=== PATIENT | female | born 1940 | race Caucasian/White ===

== ENCOUNTER 2016-11-27 18:03 | Inpatient (IN) | payer OTHER ==
--- NOTE | 2016-11-27 18:22 | PDOC ---
History of Present Illness - General Stated Complaint: RESPIRATORY DISTRESS Time Seen by Provider: 11/27/16 18:11 History Source: Patient, EMS, Family, [facility] Records Exam Limitations: No Limitations - History of Present Illness Initial Comments: 11/27/16 18:20 76y F from [place], GERD, esophageal ca, copd, hypthyroidism, constpiation, HL, psych d/o presents with respiratory distress. The patient has been more altered today and last night had complained of L flank pain. When EMS arrived she was noted to be tachypneic to the 60s, lungs showed slight wheezing but fairly clear otherwise, and she was started on a neb wit himprovement. EMS also noted she was hypontensive upon arrival, given 250 of NS with imrovement of bp from 60 /40s to 100s sbp. saturation was 99% on RA per EMS. The pt is uanble to provide much history - endorses mild cough, denies any pain including headache, cp, abd pain, diarrhea, dysuria. pt is normally not ambulatory. Past History - Past Medical History Allergies/Adverse Reactions: Allergies Allergy/AdvReac Type Severity Reaction Status Date / Time No Known Drug Allergies Allergy Verified 11/27/16 18:32 Home Medications: Ambulatory Orders Aspirin Coated [Ecotrin -] 81 mg PO DAILY 02/04/12 Divalproex [Depakote -] 250 mg PO TID 02/04/12 Levothyroxine [Synthroid -] 125 mcg PO DAILY 02/04/12 Calcium Carbonate/Vitamin D3 [Calcium 600-Vit D3 200 Tablet] 1 each PO BID 02/02 Docusate Sodium [Colace -] 200 mg PO HS 02/02/15 Quetiapine Fumarate [Seroquel -] 125 mg PO TID 02/02/15 Sennosides [Senna] 2 tab PO HS 02/02/15 Simvastatin [Zocor -] 20 mg PO HS 02/02/15 Budesonide/Formeterol Fumarate [SYMBICORT 160/4.5mcg -] 2 inh PO BID 08/06/15 Pantoprazole Sodium [Protonix] 40 mg PO BID #0 tablet. 08/06/15 Polyethylene Glycol 3350 [Purelax] 17 gm PO DAILY 08/06/15 Risperidone [Risperdal] 1 mg PO TID 08/06/15 Ranitidine HCl 150 mg PO HS 05/06/16 Dextromethorphan HBr/Quinidine [Nuedexta 20-10 mg Capsule] 1 each PO BID Nebivolol [Bystolic -] 2.5 mg PO DAILY #60 tab 08/14/16 Ramipril [Altace] 2.5 mg PO DAILY #30 capsule 08/14/16 Aclidinium [place] [Tudorza -] 1 puff IH BID inhaler 08/15/16 Duoneb - 1 unit NEB TID PRN #0 08/15/16 Acetaminophen [Tylenol .Regular Strength -] 650 mg PO Q6H PRN 11/27/16 Furosemide [Lasix -] 40 mg PO BID@0600,1400 11/27/16 Anemia: No Asthma: No Cancer: No Cardiac Disorders: Yes CVA: Yes (LEFT HEMIPARESIS-WEAK) COPD: Yes (HX OF PNEUMONIA) CHF: Yes Dementia: No Diabetes: No GI Disorders: Yes (RIVERO'S, ESOPHAGEAL CANCER) Disorders: No HTN: Yes Hypercholesterolemia: Yes Liver Disease: No Suicide Attempt (Hx): No Seizures: No Thyroid Disease: Yes (hypo) - Surgical History Abdominal Surgery: No Appendectomy: No Cardiac Surgery: No Cholecystectomy: No Lung Surgery: No Neurologic Surgery: No Orthopedic Surgery: No - Immunization History Immunization Up to Date: Yes - Psycho/Social/Smoking Cessation Hx Anxiety: No Suicidal Ideation: No Smoking Status: No Smoking History: Former smoker Have you smoked in the past 12 months: No Number of Cigarettes Smoked Daily: 20 (FOR 50 YEARS) If you are a former smoker, when did you quit?: 7 YEARS AGO Cigars Per Day: 0 Hx Alcohol Use: No Drug/Substance Use Hx: No Substance Use Type: None Hx Substance Use Treatment: No Review of Systems - Review of Systems Able to Perform ROS?: No (limited due to clinical s) Comments:: 11/27/16 18:46 *Physical Exam - Physical Exam Comments: 11/27/16 18:47 GENERAL: The patient is awake, alert, tacheptnic, ao x 1 HEAD: Normocephalic, atraumatic. EYES: extraocular movements intact, sclera anicteric, conjunctiva clear. ENT: Normal voice, dry mucous membranes. NECK: Normal range of motion, supple LUNGS: mild wheezing, tachpneic HEART: slightly tachcyardic, ABDOMEN: Soft, nontender, normoactive bowel sounds. No guarding, no rebound. . No CVA tenderness EXTREMITIES: Normal range of motion, no edema. No clubbing or cyanosis. No cords, erythema, or tenderness. NEUROLOGICAL: No facial assymetry, Normal speech, PSYCH: Normal mood, normal affect. SKIN: hot to touch, Dry, normal turgor, stage 1 sacral ulcer Heart Score/ECG Review - ECG Impressions Comment:: 11/28/16 00:25 Twelve-lead EKG was performed and reviewed by me. There is normal sinus rhythm with a rate of 101 left axis devaitaion LBBB appropriate discordance ED Treatment Course - LABORATORY CBC & Chemistry Diagram: 11/27/16 18:30 11/27/16 18:30 Medical Decision Making - Medical Decision Making 11/27/16 18:48 will r/o sepsis ?pna vs uti will give pt neb and start pt on bipap possible metabolic derngement awaiting cxr will give fluid resusitation for hypotension 11/27/16 19:55 The patient's labs were reviewed and noted for leukocytosis, lactic acid was also elevated to 3.0. the patient's creatinine is also elevated likely due to prerenal azotemia ua nitrite + - bsaed on prior cultre results, sensitive to ctx will continue hydration and reassess lactic acid pt was started on bipap due to her tachypnea - suspect may be secondary to anxiety will admit for further management CRITICAL CARE DOCUMENTATION: I spent ~35 minutes of Critical Care time, excluding separately billable procedures, involving high complexity decision making to assess, manipulate and support vital system function(s) to treat single or multiple vital organ system failure and/or to prevent further life threatening deterioration of the patient' s condition. 11/27/16 20:[address] colin agreed with management pt respiratory is much more comfortable will admit to noncardaic tele for mangaemen tof uti and sepsis Case discussed in detail with admitting physician including history, physical exam and ancillary studies. Admitting physician has assumed care for the patient, will follow all pending diagnostics and will complete the evaluation and treatment. *DC/Admit/Observation/Transfer Diagnosis at time of Disposition: Severe sepsis UTI (urinary tract infection) Qualifiers: Urinary tract infection type: site unspecified Hematuria presence: with hematuria Qualified Code(s): N39.0 - Urinary tract infection, site not specified - Discharge Dispostion Admit: Yes - Referrals
[2016-11-27] MEDS ORDERED: SODIUM CHLORIDE 1,000 ML IV STA (18:30)
[2016-11-27] MEDS ORDERED: ALBUTEROL SO4 2.5/IPRATROPIUM 0.5 INH SOL 3 ML VIAL.NEB. NEB ONE ×2 (18:42→18:49)
[2016-11-27 18:52] LABS: VENOUS PH 7.46 (7.31-7.41)
[2016-11-27] MEDS ORDERED: ACETAMINOPHEN 1000 MG/100 ML VIAL (NON FORMULARY) IVPB ONE (18:52)
[2016-11-27] MEDS ORDERED: ACETAMINOPHEN INJECTION 100 ML IVPB ONE (18:52)
[2016-11-27 18:53] LABS: VENOUS BLOOD GAS HCO3 25.7 meq/L (22-29)
[2016-11-27 19:02] LABS: BASOPHIL 0.2 % (0-2.0); MCH 31.9 pg (25.7-33.7); MCHC 32.3 g/dl (32.0-36.0); MEAN PLT VOLUME 7.9 fl (7.5-11.1); NEUTROPHILS 88.5 % (42.8-82.8); PLATELET COUNT 259 K/MM3 (134-434); RDW 14.2 % (11.6-15.6)
[2016-11-27 19:25] LABS: INR 1.15 (0.82-1.09); PROTHROMBIN TIME (PATIENT) 12.7 SEC (9.98-11.88)
[2016-11-27 19:27] LABS: ACTIVATED PTT 31.1 SECONDS (26.9-34.4)
[2016-11-27 19:28] LABS: URINE APPEARANCE CLOUDY; URINE BILIRUBIN NEGATIVE (NEGATIVE); URINE COLOR RED; URINE GLUCOSE (UA) NEGATIVE (NEGATIVE); URINE KETONE NEGATIVE (NEGATIVE); URINE NITRITE POSITIVE (NEGATIVE); URINE UROBILINOGEN NEGATIVE E.U./dl (0.2-1.0)
[2016-11-27 19:31] LABS: ALBUMIN 3.3 g/dl (3.4-5.0); CALCIUM 8.9 mg/dL (8.5-10.1); CREATININE 1.1 mg/dL (0.55-1.02); TOT PROT 6.6 g/dl (6.4-8.2)
[2016-11-27 19:34] LABS: URINE BLOOD 3+ (NEGATIVE); URINE LEUK ESTERASE 3+ (NEGATIVE); URINE PROTEIN 2+ (NEGATIVE)
[2016-11-27 19:35] LABS: BILIRUBIN,TOTAL 0.6 mg/dL (0.2-1.0); TROPONIN I 0.21 ng/ml (0.00-0.05)
[2016-11-27 19:36] LABS: URINE BACTERIA MODERATE /hpf (NONE SEEN); URINE RBC 53 /hpf (0-3); URINE WBC 328 /hpf (3-5)
[2016-11-27] MEDS ORDERED: CEFTRIAXONE 1 GM in DEXTROSE 5%-WATER - 50 ML IVPB ONE (19:52)
[2016-11-27] MEDS ORDERED: SODIUM CHLORIDE 1,000 ML IV ONE (19:53)
[2016-11-27] MEDS ORDERED: CEFTRIAXONE 50 ML ONE (19:54)
[2016-11-27] MEDS ORDERED: SODIUM CHLORIDE 1,000 ML IV SCH ×2 (21:00→22:42)
[2016-11-27] MEDS: SENNOSIDES 8.6MG TABLET (FP) PO SCH (22:17)
[2016-11-27] MEDS: ATORVASTATIN CA 10 MG TABLET (FP) PO SCH (22:17)
[2016-11-27] MEDS: DOCUSATE SODIUM 100 MG CAPSULE (FP) PO SCH (22:17)
[2016-11-27] MEDS: ALBUTEROL SO4 2.5/IPRATROPIUM 0.5 INH SOL 3 ML VIAL.NEB. NEB PRN (23:40)
[2016-11-28] MEDS: ACETAMINOPHEN 325 MG TABLET (FP) PO PRN ×2 (00:15→08:00)
[2016-11-28 02:53] VITALS: BMI 35.3
[2016-11-28] MEDS: LEVOTHYROXINE NA 125 MCG TABLET (FP) PO SCH (06:23)
[2016-11-28 07:03] LABS: BASOPHIL 0.3 % (0-2.0); MCH 33.5 pg (25.7-33.7); MCHC 33.4 g/dl (32.0-36.0); MEAN CELL VOLUME 100.1 fl (80-96); MEAN PLT VOLUME 8.1 fl (7.5-11.1); NEUTROPHILS 88.9 % (42.8-82.8); PLATELET COUNT 201 K/MM3 (134-434); RDW 14.6 % (11.6-15.6); WHITE BLOOD COUNT 15.2 K/mm3 (4.0-10.0)
[2016-11-28 07:43] LABS: ALBUMIN 2.8 g/dl (3.4-5.0); BILIRUBIN,TOTAL 0.5 mg/dL (0.2-1.0); CALCIUM 7.8 mg/dL (8.5-10.1); TOT PROT 5.9 g/dl (6.4-8.2)
[2016-11-28] MEDS ORDERED: NEBIVOLOL 2.5 MG TABLET (FP) PO SCH (10:00)
[2016-11-28] MEDS ORDERED: RAMIPRIL 2.5 MG CAPSULE (FP) PO SCH (10:00)
[2016-11-28] MEDS ORDERED: cefTRIAXone 1 GM/50 ML BAG (PRE-DOCKED) IVPB SCH (10:00)
[2016-11-28] MEDS ORDERED: CEFTRIAXONE 1 GM in DEXTROSE 5%-WATER - 50 ML IVPB SCH (10:00)
[2016-11-28] MEDS: ASPIRIN COATED 81 MG TABLET.EC PO SCH (10:10)
[2016-11-28] MEDS: PANTOPRAZOLE 40 MG TABLET (FP) PO SCH (10:10)
[2016-11-28] MEDS: POLYETHYLENE GLYCOL 3350 119 GM BTL PO SCH (10:10)
--- NOTE | 2016-11-28 10:25 | HP ---
Admitting History and Physical - Primary Care Physician PCP: Katherine Yates - Admission Chief Complaint: AMS History of Present Illness: -ER HISTORY History of Present Illness Initial Comments: 11/27/16 18:20 76y F from [facility] -- GERD, esophageal ca, copd, hypothyroidism, constipation , HL, psych d/o presents with respiratory distress. The patient has been more altered today and last night had complained of L flank pain. When EMS arrived she was noted to be tachypneic to the 60s, lungs showed slight wheezing but fairly clear otherwise, and she was started on a neb with improvement. EMS also noted she was hypontensive upon arrival, given 250 of NS with improvement of bp from 60/40s to 100s sbp. saturation was 99% on RA per EMS. The pt is uanble to provide much history - endorses mild cough, denies any pain including headache, cp, abd pain, diarrhea, dysuria. pt is normally not ambulatory. 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) Heme/Onc: Yes: Anemia Psych: Yes: Bipolar Musculoskeletal: Yes: Osteoarthritis Endocrine: Yes: Hypothyroidism - Advance Directives Advance Directives: Yes: Health Care Proxy, DNR - Smoking History Smoking history: Former smoker Have you smoked in the past 12 months: No Aproximately how many cigarettes per day: 20 (FOR 50 YEARS) If you are a former smoker, when did you quit?: 7 YEARS AGO - Alcohol/Substance Use Hx Alcohol Use: No - Social History ADL: Support Services History of Recent Travel: No Home Medications - Allergies Allergies/Adverse Reactions: Allergies Allergy/AdvReac Type Severity Reaction Status Date / Time No Known Drug Allergies Allergy Verified 11/27/16 18:32 - Home Medications Home Medications: Ambulatory Orders Aspirin Coated [Ecotrin -] 81 mg PO DAILY 02/04/12 Divalproex [Depakote -] 250 mg PO TID 02/04/12 Levothyroxine [Synthroid -] 125 mcg PO DAILY 02/04/12 Calcium Carbonate/Vitamin D3 [Calcium 600-Vit D3 200 Tablet] 1 each PO BID 02/02 Docusate Sodium [Colace -] 200 mg PO HS 02/02/15 Quetiapine Fumarate [Seroquel -] 125 mg PO TID 02/02/15 Sennosides [Senna] 2 tab PO HS 02/02/15 Simvastatin [Zocor -] 20 mg PO HS 02/02/15 Budesonide/Formeterol Fumarate [SYMBICORT 160/4.5mcg -] 2 inh PO BID 08/06/15 Pantoprazole Sodium [Protonix] 40 mg PO BID #0 tablet. 08/06/15 Polyethylene Glycol 3350 [Purelax] 17 gm PO DAILY 08/06/15 Risperidone [Risperdal] 1 mg PO TID 08/06/15 Ranitidine HCl 150 mg PO HS 05/06/16 Dextromethorphan HBr/Quinidine [Nuedexta 20-10 mg Capsule] 1 each PO BID Nebivolol [Bystolic -] 2.5 mg PO DAILY #60 tab 08/14/16 Ramipril [Altace] 2.5 mg PO DAILY #30 capsule 08/14/16 Aclidinium [place] [Tudorza -] 1 puff IH BID inhaler 08/15/16 Duoneb - 1 unit NEB TID PRN #0 08/15/16 Acetaminophen [Tylenol .Regular Strength -] 650 mg PO Q6H PRN 11/27/16 Furosemide [Lasix -] 40 mg PO BID@0600,1400 11/27/16 Review of Systems - Review of Systems Constitutional: denies: Chills, Fever Cardiovascular: denies: Chest Pain Respiratory: reports: Cough, SOB Physical Examination Vital Signs: Vital Signs Temperature 98.8 F 11/28/16 06:00 Pulse Rate 93 H 11/28/16 09:25 Respiratory Rate 20 11/28/16 06:00 Blood Pressure 96/43 11/28/16 06:00 O2 Sat by Pulse Oximetry (%) 95 11/28/16 09:25 Constitutional: Yes: No Distress, Calm Cardiovascular: Yes: Regular Rate and Rhythm Respiratory: Yes: Diminished Gastrointestinal: Yes: Normal Bowel Sounds, Soft. No: Distention, Tenderness Renal/: No: Bladder Distention Edema: No Psychiatric: Yes: Alert Labs: CBC, BMP 11/28/16 05:00 11/28/16 05:00 Imaging - Results Chest X-ray: Image Reviewed (left base infiltrate) EKG: Image Reviewed (sinus tachycardia, LBBB) Problem List - Problems (1) Severe sepsis Code(s): A41.9 - SEPSIS, UNSPECIFIED ORGANISM R65.20 - SEVERE SEPSIS WITHOUT SEPTIC SHOCK (2) UTI (urinary tract infection) Code(s): N39.0 - URINARY TRACT INFECTION, SITE NOT SPECIFIED Qualifiers: Urinary tract infection type: site unspecified Hematuria presence: with hematuria Qualified Code(s): N39.0 - Urinary tract infection, site not specified (3) Cardiomyopathy Code(s): I42.9 - CARDIOMYOPATHY, UNSPECIFIED (4) HLD (hyperlipidemia) Code(s): E78.5 - HYPERLIPIDEMIA, UNSPECIFIED Qualifiers: Hyperlipidemia type: pure hypercholesterolemia Qualified Code(s): E78.0 - Pure hypercholesterolemia (5) HTN (hypertension) Code(s): I10 - ESSENTIAL (PRIMARY) HYPERTENSION Qualifiers: Hypertension type: essential hypertension Qualified Code(s): I10 - Essential (primary) hypertension (6) Hypothyroidism Code(s): E03.9 - HYPOTHYROIDISM, UNSPECIFIED Qualifiers: Hypothyroidism type: unspecified Qualified Code(s): E03.9 - Hypothyroidism, unspecified (7) Pneumonia Code(s): J18.9 - PNEUMONIA, UNSPECIFIED ORGANISM Qualifiers: Pneumonia type: due to unspecified organism Laterality: left Lung location: lower lobe of lung Qualified Code(s): J18.9 - Pneumonia, unspecified organism Assessment/Plan PLAN IV antibiotics dc iv fluids Cardiology eval and ID eval blood cultures positive check influenza swab sputum cultures, urine antigens dc tarango Heparin sc for DVT prophylaxis
[2016-11-28] MEDS ORDERED: SODIUM CHLORIDE 1,000 ML IV SCH (11:24)
--- NOTE | 2016-11-28 13:10 | EKG ---
Test Reason : Blood Pressure : / mmHG Vent. Rate : 101 BPM Atrial Rate : 101 BPM P-R Int : 178 ms QRS Dur : 146 ms QT Int : 402 ms P-R-T Axes : 068 -79 072 degrees QTc Int : 521 ms SINUS TACHYCARDIA LEFT AXIS DEVIATION LEFT BUNDLE BRANCH BLOCK ABNORMAL ECG WHEN COMPARED WITH ECG OF 02-AUG-2016 21:12, VENTRICULAR ECTOPIES ARE NO LONGER SEEN Confirmed by KALI WEEMS, DA ([id number]) on 11/28/2016 1:10:14 PM Referred By: Overread By: DA BASS MD
[2016-11-28] MEDS ORDERED: QUEtiapine FUMARATE 25 MG TABLET (FP) ONE ×2 (13:27→21:42)
[2016-11-28] MEDS ORDERED: QUEtiapine FUMARATE 50 MG TABLET ONE ×2 (13:28→21:42)
[2016-11-28] MEDS ORDERED: QUEtiapine FUMARATE 25 MG TABLET (FP) PO SCH (14:00)
[2016-11-28] MEDS: ACETAMINOPHEN 1000 MG/100 ML VIAL (NON FORMULARY) IVPB PRN ×2 (14:30→21:54)
[2016-11-28] MEDS: QUETIAPINE FUMARATE 100 MG, QUETIAPINE FUMARATE 25 MG PO SCH ×2 (15:05→21:49)
[2016-11-28] MEDS ORDERED: FUROSEMIDE 40 MG/4 ML INJECTABLE VIAL IVPB ONE (15:15)
--- NOTE | 2016-11-28 15:50 | PN ---
Progress Note (short form) - Note Progress Note: ID Consult dictated Gram Negative Bacteremia/ Sepsis secondary to focus Toxic metabolic encephalopathy Possible pneumonia UTI Decompansated CHF Pending identification of blood isolate , empiric cefepime
[2016-11-28] MEDS ORDERED: CEFEPIME HCL 1 GM VIAL (RESTRICTED TO ID) IVPB SCH (16:00)
[2016-11-28] MEDS ORDERED: PT OWN MED DRAWER 7, Y5N ONE (16:13)
--- NOTE | 2016-11-28 16:30 | CONS ---
DATE OF CONSULTATION: DATE OF DICTATION: 11/28/2016 The patient is a 76-year-old female who is evaluated for sepsis. History is obtained from the chart as she cannot give a history secondary to moderate distress secondary to her respiratory status. She is a resident of a retirement facility. She was noted to become increasingly short of breath and confused. She also developed fever. She was transferred to [facility] Emergency Room, where her temperature was recorded at 102.8. She was hypotensive, tachycardic, and tachypneic. She required BiPAP treatment and was transferred to the telemetry unit. Blood cultures are now positive for gram-negative rods. The patient does not give a reliable history, however, she does report recent dysuria and urinary frequency. She denies any suprapubic or flank pain. No complaints of chest pain, cough or sputum production. Chest x-ray showed increased vascular markings with possible left-sided infiltrate. Past medical history positive for hypertension, congestive heart failure, history of urinary tract infection, pneumonia, hypothyroidism, Elliott esophagus. PAST SURGICAL HISTORY: Status post cystocele repair. No known allergies. MEDICATIONS: Symbicort, Tylenol, ceftriaxone, heparin, Depakote, Colace, Lipitor, Ecotrin, Protonix, Synthroid. SOCIAL HISTORY: Lives in a retirement facility. Former smoker. No history of alcohol abuse. SYSTEMS REVIEW: Neurologic: Positive for confusion. Cardiac: Negative for chest pain or palpitations. Respiratory: As per HPI. Gastrointestinal: Negative vomiting or diarrhea. Genitourinary: As per HPI. LABORATORY DATA White count on admission 19,000, presently 15.2, hematocrit 32.6, platelet count 201. BUN 10, creatinine 1.0. Urine analysis: 328 white cells. Blood cultures: Gram-negative rods. PHYSICAL EXAMINATION: General: She is awake. She is in moderate distress secondary to tachypnea, on BiPAP mask. Vital Signs: Temperature 102. Blood pressure 105/37. Pulse 102, regular. Respiration 22 per minute. ENT: Sclerae anicteric. BiPAP mask in place. Heart Sounds: S1, S2. Lungs: Diminished breath sounds bilaterally. Abdomen: Obese, soft. Nontender. No suprapubic or flank tenderness. Extremities: 1+ edema. IMPRESSION: 1. Gram-negative bacteremia/sepsis secondary to genitourinary focus. 2. Toxic metabolic encephalopathy. 3. Urinary tract infection. 4. Possible pneumonia. 5. Decompensated congestive heart failure. Pending identification of blood isolate. Empiric antibiotic coverage with cefepime 1 g IV piggyback every 8 hours. Continue hemodynamic and respiratory support. Prognosis is guarded. Case discussed with family members present at the time of examination. Thank you for the kind referral. YESSY JERRY M.D. [id number]
[2016-11-28] MEDS: DIVALPROEX SODIUM 250 MG TABLET E.C. (FP) PO SCH ×2 (16:33→21:54)
[2016-11-28 17:06] LABS: TROPONIN I 0.07 ng/ml (0.00-0.05)
[2016-11-28] MEDS: CEFEPIME 1 GM in DEXTROSE 5%-WATER - 100 ML IVPB SCH (18:26)
[2016-11-28] MEDS: DOCUSATE SODIUM 100 MG CAPSULE (FP) PO SCH (21:48)
[2016-11-28] MEDS: SENNOSIDES 8.6MG TABLET (FP) PO SCH (21:48)
[2016-11-28] MEDS: ATORVASTATIN CA 10 MG TABLET (FP) PO SCH (21:49)
[2016-11-28] MEDS: HEPARIN NA (PORCINE) 5,000 UNITS/ML 1ML VIAL SQ SCH (21:49)
[2016-11-28] MEDS: BUDESONIDE/FORMETEROL FUMARATE 160/4.5 mcg INHALER IH SCH (22:00)
[2016-11-28] MEDS ORDERED: HEPARIN INFUSION - 500 ML IVPB ONE (22:02)
[2016-11-29] MEDS: CEFEPIME 1 GM in DEXTROSE 5%-WATER - 100 ML IVPB SCH (03:30)
[2016-11-29] MEDS: ALBUTEROL SO4 2.5/IPRATROPIUM 0.5 INH SOL 3 ML VIAL.NEB. NEB PRN ×2 (06:05→11:18)
[2016-11-29] MEDS ORDERED: QUEtiapine FUMARATE 25 MG TABLET (FP) ONE (06:35)
[2016-11-29] MEDS ORDERED: QUEtiapine FUMARATE 50 MG TABLET ONE (06:36)
[2016-11-29] MEDS: LEVOTHYROXINE NA 125 MCG TABLET (FP) PO SCH (06:38)
[2016-11-29] MEDS: DIVALPROEX SODIUM 250 MG TABLET E.C. (FP) PO SCH ×3 (06:38→21:32)
[2016-11-29] MEDS: QUETIAPINE FUMARATE 100 MG, QUETIAPINE FUMARATE 25 MG PO SCH (06:38)
--- NOTE | 2016-11-29 10:13 | PN ---
Progress Note, Physician Chief Complaint: patient cannot provide history thus it was obtained from the chart. History of Present Illness: 76y F from [facility] -- GERD, esophageal ca,PAF, LV thrombus, GI bleed on coumadin, Chronic systolic CHF (secondary to NICM), copd, hypothyroidism, constipation, HL, psych d/o presents with respiratory distress and altered mental status. When EMS arrived she was noted to be tachypneic to the 60s, lungs showed slight wheezing but fairly clear otherwise, and she was started on a neb with improvement. EMS also noted she was hypontensive upon arrival, given 250 of NS with improvement of bp from 60/40s to 100s sbp. saturation was 99% on RA per EMS. The pt is uanble to provide much history. Cultures have grown Proteus, and so presentation is likely due to urosepsis. On Telemetry, she has been in normal sinus rhythm with PVCs. Family History: could not be obtained. Social History: Custodial resident. DNR. - Current Medication List Current Medications: Active Medications Acetaminophen (Tylenol -) 650 mg PO Q6H PRN PRN Reason: FEVER OR PAIN Last Admin: 11/28/16 08:00 Dose: 650 mg Acetaminophen (Ofirmev Injection -) 1,000 mg IVPB Q6H PRN Last Admin: 11/28/16 21:54 Dose: 1,000 mg Albuterol/Ipratropium (Duoneb -) 1 amp NEB Q6H PRN PRN Reason: SHORTNESS OF BREATH Last Admin: 11/29/16 06:05 Dose: 1 amp Aspirin (Ecotrin -) 81 mg PO DAILY [facility] Last Admin: 11/28/16 10:10 Dose: 81 mg Atorvastatin Calcium (Lipitor -) 10 mg PO [facility] Last Admin: 11/28/16 21:49 Dose: 10 mg Budesonide/Formoterol Fumarate (Symbicort 160/4.5mcg -) 2 puff IH BID [facility] Last Admin: 11/28/16 22:00 Dose: 2 puff Divalproex Sodium (Depakote -) 250 mg PO TID [facility] Last Admin: 11/29/16 06:38 Dose: 250 mg Docusate Sodium (Colace -) 200 mg PO [facility] Last Admin: 11/28/16 21:48 Dose: 200 mg Heparin Sodium (Porcine) (Heparin -) 5,000 unit SQ BID [facility] Last Admin: 11/28/16 21:49 Dose: 5,000 unit Cefepime HCl 1 gm/ Dextrose 100 mls @ 200 mls/hr IVPB Q8H-IV [facility] Last Admin: 11/29/16 03:30 Dose: 200 mls/hr Levothyroxine Sodium (Synthroid -) 125 mcg PO DAILY@0700 [facility] Last Admin: 11/29/16 06:38 Dose: 125 mcg Pantoprazole Sodium (Protonix -) 40 mg PO DAILY [facility] Last Admin: 11/28/16 10:10 Dose: 40 mg Polyethylene Glycol (Miralax (For Daily Use) -) 17 gm PO DAILY [facility] Last Admin: 11/28/16 10:10 Dose: 17 gm Quetiapine Fumarate 100 mg/ (Quetiapine Fumarate 25 mg) 125 mg PO TID [facility] Last Admin: 11/29/16 06:38 Dose: 125 mg Senna (Senna -) 2 tab PO HS [facility] Last Admin: 11/28/16 21:48 Dose: 2 tab - Objective Vital Signs: Vital Signs Temperature 99 F 11/29/16 05:39 Pulse Rate 79 11/29/16 09:56 Respiratory Rate 20 11/29/16 05:39 Blood Pressure 95/40 11/29/16 05:39 O2 Sat by Pulse Oximetry (%) 97 11/29/16 09:56 Constitutional: Yes: Other (no acute distress,) Eyes: Yes: Conjunctiva Clear Cardiovascular: Yes: Regular Rate and Rhythm Respiratory: Yes: Other (decreased breath sounds at bases b/l) Gastrointestinal: Yes: Soft (non-tender) Edema: No Neurological: Yes: Confusion Labs: CBC, BMP 11/28/16 05:00 11/28/16 05:00 INR, PTT INR 1.15 (0.82-1.09) H 11/27/16 18:30 Microbiology 11/27/16 19:05 Blood - Peripheral Venous Blood Culture - Preliminary Proteus Species 11/27/16 19:05 Blood - Peripheral Venous Blood Culture - Preliminary Proteus Species 11/27/16 18:46 Urine - Urine - Catheterized Urine Culture - Preliminary Proteus Species Laboratory Tests 11/27/16 11/27/16 11/27/16 18:30 18:30 20:30 Lactic Acid 3.000 H* 2.005 H* Creatine Kinase 186 D Troponin I 0.21 H 11/28/16 15:15 Lactic Acid Creatine Kinase 246 H D Troponin I 0.07 H - ....Imaging Chest X-ray: Report Reviewed, Image Reviewed EKG: Image Reviewed (Sinus tach, left axis, left bundle.) Assessment/Plan IMP: Urosepsis Cardiomyopathy with chronic systolic CHF (non-ischemic) PAF History of LV thrombus GI bleed on coumadin Esophageal Cancer REC: 1. Urosepsis: abx as per ID 2. PAF: Currently in NSR, was not on AC due to previous history of GI bleed on coumadin. 3. CHF: would not actively diurese while acutely infected, does not appear to be acutely volume overloaded although will monitor closely while receiving extra volume of abx and IVF.
--- NOTE | 2016-11-29 10:42 | PN ---
Progress Note, Physician Chief Complaint: on BIPAP AWAKE - Current Medication List Current Medications: Active Medications Acetaminophen (Tylenol -) 650 mg PO Q6H PRN PRN Reason: FEVER OR PAIN Last Admin: 11/28/16 08:00 Dose: 650 mg Acetaminophen (Ofirmev Injection -) 1,000 mg IVPB Q6H PRN Last Admin: 11/28/16 21:54 Dose: 1,000 mg Albuterol/Ipratropium (Duoneb -) 1 amp NEB Q6H PRN PRN Reason: SHORTNESS OF BREATH Last Admin: 11/29/16 06:05 Dose: 1 amp Aspirin (Ecotrin -) 81 mg PO DAILY [facility] Last Admin: 11/28/16 10:10 Dose: 81 mg Atorvastatin Calcium (Lipitor -) 10 mg PO HS [facility] Last Admin: 11/28/16 21:49 Dose: 10 mg Budesonide/Formoterol Fumarate (Symbicort 160/4.5mcg -) 2 puff IH BID [facility] Last Admin: 11/28/16 22:00 Dose: 2 puff Divalproex Sodium (Depakote -) 250 mg PO TID [facility] Last Admin: 11/29/16 06:38 Dose: 250 mg Docusate Sodium (Colace -) 200 mg PO HS [facility] [place] Last Admin: 11/28/16 21:48 Dose: 200 mg Heparin Sodium (Porcine) (Heparin -) 5,000 unit SQ BID [facility] Last Admin: 11/28/16 21:49 Dose: 5,000 unit Cefepime HCl 1 gm/ Dextrose 100 mls @ 200 mls/hr IVPB Q8H-IV [facility] Last Admin: 11/29/16 03:30 Dose: 200 mls/hr Levothyroxine Sodium (Synthroid -) 125 mcg PO DAILY@0700 [facility] [place] Last Admin: 11/29/16 06:38 Dose: 125 mcg Pantoprazole Sodium (Protonix -) 40 mg PO DAILY [facility] Last Admin: 11/28/16 10:10 Dose: 40 mg Polyethylene Glycol (Miralax (For Daily Use) -) 17 gm PO DAILY [facility] [place] Last Admin: 11/28/16 10:10 Dose: 17 gm Quetiapine Fumarate 100 mg/ (Quetiapine Fumarate 25 mg) 125 mg PO TID [facility] [place] Last Admin: 11/29/16 06:38 Dose: 125 mg Senna (Senna -) 2 tab PO HS [facility] Last Admin: 11/28/16 21:48 Dose: 2 tab - Objective Vital Signs: Vital Signs Temperature 99 F 11/29/16 05:39 Pulse Rate 79 11/29/16 09:56 Respiratory Rate 20 11/29/16 05:39 Blood Pressure 95/40 11/29/16 05:39 O2 Sat by Pulse Oximetry (%) 97 11/29/16 09:56 Constitutional: Yes: No Distress Cardiovascular: Yes: Regular Rate and Rhythm Respiratory: Yes: Diminished Gastrointestinal: Yes: Normal Bowel Sounds, Soft, Abdomen, Obese. No: Distention, Tenderness Edema: No Psychiatric: Yes: Alert Labs: CBC, BMP 11/28/16 05:00 11/28/16 05:00 INR, PTT INR 1.15 (0.82-1.09) H 11/27/16 18:30 Problem List - Problems (1) Severe sepsis Code(s): A41.9 - SEPSIS, UNSPECIFIED ORGANISM R65.20 - SEVERE SEPSIS WITHOUT SEPTIC SHOCK (2) UTI (urinary tract infection) Code(s): N39.0 - URINARY TRACT INFECTION, SITE NOT SPECIFIED Qualifiers: Urinary tract infection type: site unspecified Hematuria presence: with hematuria Qualified Code(s): N39.0 - Urinary tract infection, site not specified (3) Cardiomyopathy Code(s): I42.9 - CARDIOMYOPATHY, UNSPECIFIED (4) HLD (hyperlipidemia) Code(s): E78.5 - HYPERLIPIDEMIA, UNSPECIFIED Qualifiers: Hyperlipidemia type: pure hypercholesterolemia Qualified Code(s): E78.0 - Pure hypercholesterolemia (5) HTN (hypertension) Code(s): I10 - ESSENTIAL (PRIMARY) HYPERTENSION Qualifiers: Hypertension type: essential hypertension Qualified Code(s): I10 - Essential (primary) hypertension (6) Hypothyroidism Code(s): E03.9 - HYPOTHYROIDISM, UNSPECIFIED Qualifiers: Hypothyroidism type: unspecified Qualified Code(s): E03.9 - Hypothyroidism, unspecified (7) Pneumonia Code(s): J18.9 - PNEUMONIA, UNSPECIFIED ORGANISM Qualifiers: Pneumonia type: due to unspecified organism Laterality: left Lung location: lower lobe of lung Qualified Code(s): J18.9 - Pneumonia, unspecified organism Assessment/Plan PLAN IV antibiotics dc iv fluids blood cultures positive-- likely urinary source influenza swab negative sputum cultures, urine antigens pending dc tarango Heparin sc for DVT prophylaxis
[2016-11-29] MEDS: HEPARIN NA (PORCINE) 5,000 UNITS/ML 1ML VIAL SQ SCH ×2 (11:00→21:15)
[2016-11-29] MEDS: ACETAMINOPHEN 1000 MG/100 ML VIAL (NON FORMULARY) IVPB PRN (11:05)
[2016-11-29] MEDS: ASPIRIN COATED 81 MG TABLET.EC PO SCH (11:15)
[2016-11-29] MEDS: PANTOPRAZOLE 40 MG TABLET (FP) PO SCH (11:15)
[2016-11-29] MEDS: POLYETHYLENE GLYCOL 3350 119 GM BTL PO SCH (11:15)
[2016-11-29] MEDS: BUDESONIDE/FORMETEROL FUMARATE 160/4.5 mcg INHALER IH SCH ×2 (11:16→22:48)
[2016-11-29] MEDS ORDERED: DOPAMINE 400 MG/D5W - 250 ML IVPB ONE (11:50)
[2016-11-29] MEDS: DOPAMINE HCL 400,000 MCG in SODIUM CHLORIDE 240 ML IV SCH (12:00)
--- NOTE | 2016-11-29 12:41 | PN ---
Progress Note, Physician History of Present Illness: Lethargic today Slightly tachypneic No acute respiratory distress Hypotensive- dopamine started Remains febrile WBC improved Blood c/s Proteus sp. - Current Medication List Current Medications: Active Medications Acetaminophen (Tylenol -) 650 mg PO Q6H PRN PRN Reason: FEVER OR PAIN Last Admin: 11/28/16 08:00 Dose: 650 mg Acetaminophen (Ofirmev Injection -) 1,000 mg IVPB Q6H PRN Last Admin: 11/29/16 11:05 Dose: 1,000 mg Albuterol/Ipratropium (Duoneb -) 1 amp NEB Q4H PRN PRN Reason: SHORTNESS OF BREATH Last Admin: 11/29/16 11:18 Dose: 1 amp Aspirin (Ecotrin -) 81 mg PO DAILY [facility] Last Admin: 11/29/16 11:15 Dose: Not Given Atorvastatin Calcium (Lipitor -) 10 mg PO HS [facility] Last Admin: 11/28/16 21:49 Dose: 10 mg Budesonide/Formoterol Fumarate (Symbicort 160/4.5mcg -) 2 puff IH BID [facility] Last Admin: 11/29/16 11:16 Dose: Not Given Divalproex Sodium (Depakote -) 250 mg PO TID [facility] Last Admin: 11/29/16 06:38 Dose: 250 mg Docusate Sodium (Colace -) 200 mg PO HS [facility] Last Admin: 11/28/16 21:48 Dose: 200 mg Heparin Sodium (Porcine) (Heparin -) 5,000 unit SQ BID [facility] Last Admin: 11/28/16 21:49 Dose: 5,000 unit Cefepime HCl 1 gm/ Dextrose 100 mls @ 200 mls/hr IVPB Q8H-IV [facility] Last Admin: 11/29/16 03:30 Dose: 200 mls/hr Dopamine HCl 400,000 mcg/ (Sodium Chloride) 250 mls @ 10.51 mls/hr IV TITR [facility] ; 3 MCG/KG/MIN PRN Reason: Protocol Levothyroxine Sodium (Synthroid -) 125 mcg PO DAILY@0700 [facility] Last Admin: 11/29/16 06:38 Dose: 125 mcg Pantoprazole Sodium (Protonix -) 40 mg PO DAILY [facility] Last Admin: 11/29/16 11:15 Dose: Not Given Polyethylene Glycol (Miralax (For Daily Use) -) 17 gm PO DAILY [facility] Last Admin: 11/29/16 11:15 Dose: Not Given Quetiapine Fumarate 100 mg/ (Quetiapine Fumarate 25 mg) 125 mg PO TID [facility] Last Admin: 11/29/16 06:38 Dose: 125 mg Senna (Senna -) 2 tab PO HS [facility] Last Admin: 11/28/16 21:48 Dose: 2 tab - Objective Vital Signs: Vital Signs Temperature 99 F 11/29/16 05:39 Pulse Rate 79 11/29/16 09:56 Respiratory Rate 20 11/29/16 05:39 Blood Pressure 95/40 11/29/16 05:39 O2 Sat by Pulse Oximetry (%) 97 11/29/16 09:56 Constitutional: Yes: No Distress Eyes: Yes: Conjunctiva Clear Cardiovascular: Yes: Regular Rate and Rhythm, S1, S2 Respiratory: Yes: Diminished Gastrointestinal: Yes: Normal Bowel Sounds, Soft, Abdomen, Obese. No: Tenderness Edema: Yes Labs: CBC, BMP 11/28/16 05:00 11/28/16 05:00 INR, PTT INR 1.15 (0.82-1.09) H 11/27/16 18:30 Assessment/Plan Gram Negative bacteremia/ sepsis secondary to source Fever/ leukocytosis CHF, possible pneumonia Final identification and susceptibilities pending. In light of persistant fever and now hypotension, will substitute meropenem pending final c/s Renal sonogram when more stable R/O hydronephrosis
[2016-11-29 12:59] LABS: ARTERIAL BLD GAS O2 SATURATION 92.4 % (90-98.9); ARTERIAL BLOOD GAS BASE EXCESS -0.6 meq/l (-2-2); ARTERIAL BLOOD GAS HCO3 23.9 meq/L (22-26); ARTERIAL BLOOD GAS pH 7.38 (7.35-7.45)
[2016-11-29] MEDS ORDERED: MEROPENEM 500 MG VIAL (RESTRICTED TO ID) IVPB SCH (13:00)
[2016-11-29 13:01] LABS: ALLENS TEST POSITIVE; ART PUNCT SITE RIGHT RADIAL; ARTERIAL BLOOD GAS PO2 67.9 mmHg (70-100); LPM/O2% 3L; PT. ON O2? YES; TYPE OF O2 NASAL
--- NOTE | 2016-11-29 15:00 | CONSULT ---
Consult Consult Specialty:: PULMONARY/CCM Referred by:: Dr. Gonzalez Reason for Consultation:: septic shock - History of Present Illness Chief Complaint: shortness of breath History of Present Illness: 76yo female with h/o COPD, GERD, hyperlipidemia, severe LV systolic dysfunction , paroxysmal atrial fibrillation, h/o LV thrombus, hypothyroidism, [facility] resident who was transferred for respiratory distress and altered mental status. Pt poor historian, does not remember events leading up to admission. Febrile, hypotensive, urine and blood cultures growing proteus species. Started on dopamine gtt on telemetry for persistent hypotension. Currently short of breath on 50% ventimask with accessory muscle use. Daughters at bedside. 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) Psych: Yes: Bipolar Musculoskeletal: Yes: Osteoarthritis Endocrine: Yes: Hypothyroidism - Alcohol/Substance Use Hx Alcohol Use: No - Smoking History Smoking history: Former smoker Have you smoked in the past 12 months: No Aproximately how many cigarettes per day: 20 (FOR 50 YEARS) If you are a former smoker, when did you quit?: 7 YEARS AGO - Social History Usual Living Arrangement: Shelter ADL: Support Services History of Recent Travel: No Home Medications - Allergies Allergies/Adverse Reactions: Allergies Allergy/AdvReac Type Severity Reaction Status Date / Time No Known Drug Allergies Allergy Verified 11/27/16 18:32 - Home Medications Home Medications: Ambulatory Orders Aspirin Coated [Ecotrin -] 81 mg PO DAILY 02/04/12 Divalproex [Depakote -] 250 mg PO TID 02/04/12 Levothyroxine [Synthroid -] 125 mcg PO DAILY 02/04/12 Calcium Carbonate/Vitamin D3 [Calcium 600-Vit D3 200 Tablet] 1 each PO BID 02/02 Docusate Sodium [Colace -] 200 mg PO HS 02/02/15 Quetiapine Fumarate [Seroquel -] 125 mg PO TID 02/02/15 Sennosides [Senna] 2 tab PO HS 02/02/15 Simvastatin [Zocor -] 20 mg PO HS 02/02/15 Budesonide/Formeterol Fumarate [SYMBICORT 160/4.5mcg -] 2 inh PO BID 08/06/15 Pantoprazole Sodium [Protonix] 40 mg PO BID #0 tablet. 08/06/15 Polyethylene Glycol 3350 [Purelax] 17 gm PO DAILY 08/06/15 Risperidone [Risperdal] 1 mg PO TID 08/06/15 Ranitidine HCl 150 mg PO HS 05/06/16 Dextromethorphan HBr/Quinidine [Nuedexta 20-10 mg Capsule] 1 each PO BID Nebivolol [Bystolic -] 2.5 mg PO DAILY #60 tab 08/14/16 Ramipril [Altace] 2.5 mg PO DAILY #30 capsule 08/14/16 Aclidinium Hermann [Tudorza -] 1 puff IH BID inhaler 08/15/16 Duoneb - 1 unit NEB TID PRN #0 08/15/16 Acetaminophen [Tylenol .Regular Strength -] 650 mg PO Q6H PRN 11/27/16 Furosemide [Lasix -] 40 mg PO BID@0600,1400 11/27/16 Family Disease History - Family Disease History Other Family History: non-contributory Review of Systems - Review of Systems Constitutional: reports: Chills, Fever, Weakness Eyes: denies: Recent Change in Vision HENT: denies: Nasal Congestion, Throat Pain Neck: denies: Stiffness, Tenderness Cardiovascular: reports: Shortness of Breath. denies: Chest Pain, Edema, Palpitations Respiratory: reports: Cough. denies: Hemoptysis, Wheezing Gastrointestinal: denies: Abdominal Pain, Nausea, Vomiting Genitourinary: denies: Dysuria, Hematuria Neurological: denies: Dizziness, Headache Physical Exam Vital Sings: Vital Signs Temperature 99 F 11/29/16 05:39 Pulse Rate 95 H 11/29/16 14:53 Respiratory Rate 20 11/29/16 05:39 Blood Pressure 95/40 11/29/16 05:39 O2 Sat by Pulse Oximetry (%) 96 11/29/16 14:53 Constitutional: Yes: Moderate Distress Eyes: Yes: Conjunctiva Clear, EOM Intact HENT: Yes: Atraumatic, Normocephalic Neck: Yes: Supple, Trachea Midline Cardiovascular: Yes: Tachycardia Respiratory: Yes: Rhonchi (bilateral) ...Clubbing: No Gastrointestinal: Yes: Normal Bowel Sounds, Soft, Abdomen, Obese. No: Tenderness Edema: No Labs: CBC, BMP 11/28/16 05:00 11/28/16 05:00 ABG Results ABG pH 7.38 (7.35-7.45) 11/29/16 12:45 ABG pCO2 at Pt Temp 41.0 mmHg (35-45) 11/29/16 12:45 ABG pO2 at Pt Temp 67.9 mmHg (70-100) L 11/29/16 12:45 ABG HCO3 23.9 meq/L (22-26) 11/29/16 12:45 ABG O2 Sat (Measured) 92.4 % (90-98.9) 11/29/16 12:45 ABG O2 Content 13.0 % vol (15-22) L 11/29/16 12:45 ABG Base Excess -0.6 meq/l (-2-2) 11/29/16 12:45 Imaging - Results Chest X-ray: Report Reviewed, Image Reviewed (increasing pulmonary vascular congestion) Problem List - Problems (1) UTI (urinary tract infection) Code(s): N39.0 - URINARY TRACT INFECTION, SITE NOT SPECIFIED Qualifiers: Urinary tract infection type: site unspecified Hematuria presence: with hematuria Qualified Code(s): N39.0 - Urinary tract infection, site not specified (2) Bacteremia Code(s): R78.81 - BACTEREMIA (3) Septic shock Code(s): A41.9 - SEPSIS, UNSPECIFIED ORGANISM R65.21 - SEVERE SEPSIS WITH SEPTIC SHOCK (4) Acute on chronic systolic CHF (congestive heart failure), NYHA class 4 Code(s): I50.23 - ACUTE ON CHRONIC SYSTOLIC (CONGESTIVE) HEART FAILURE (5) HLD (hyperlipidemia) Code(s): E78.5 - HYPERLIPIDEMIA, UNSPECIFIED Qualifiers: Hyperlipidemia type: pure hypercholesterolemia Qualified Code(s): E78.0 - Pure hypercholesterolemia (6) HTN (hypertension) Code(s): I10 - ESSENTIAL (PRIMARY) HYPERTENSION Qualifiers: Hypertension type: essential hypertension Qualified Code(s): I10 - Essential (primary) hypertension (7) Hypothyroidism Code(s): E03.9 - HYPOTHYROIDISM, UNSPECIFIED Qualifiers: Hypothyroidism type: unspecified Qualified Code(s): E03.9 - Hypothyroidism, unspecified (8) Paroxysmal atrial fibrillation Code(s): I48.0 - PAROXYSMAL ATRIAL FIBRILLATION (9) Lactic acidosis Code(s): E87.2 - ACIDOSIS (10) Elevated troponin Code(s): R79.89 - OTHER SPECIFIED ABNORMAL FINDINGS OF BLOOD CHEMISTRY Assessment/Plan Proteus UTI/Bacteremia Septic Shock Lactic Acidosis Acute on Chronic LV Systolic Heart Failure Impending Acute Hypoxic Respiratory Failure COPD Paroxysmal Atrial Fibrillation h/o LV thrombus - IV antibiotics per ID - f/u proteus sensitivities - trend lactate - titrate dopamine gtt to maintain MAP >65 - O2 to keep SpO2 >90% - BiPAP to assist in work of breathing - inhaled bronchodilators - aspiration precautions - discussed with pt and daughters at bedside at length regarding central line placement and pressor support, trial of intubation while treating her infection , comfort care - discussed with them difficulty placing central access if she is unable to lie flat - pt became visibly frustrated and overwhelmed, unable to make decision at this time, advised continued discussions regarding goals of care - transfer to ICU for closer monitoring until goals of care established Thank you for this consult Quintin Aguiar MD
[2016-11-29] MEDS: MEROPENEM 500 MG in DEXTROSE 5%-WATER - 100 ML IVPB SCH (18:14)
[2016-11-29] MEDS ORDERED: PT OWN MED DRAWER 7, Y5N ONE ×2 (20:54→22:36)
[2016-11-29] MEDS: SENNOSIDES 8.6MG TABLET (FP) PO SCH (20:59)
[2016-11-29] MEDS: DOCUSATE SODIUM 100 MG CAPSULE (FP) PO SCH (21:14)
[2016-11-29] MEDS: ATORVASTATIN CA 10 MG TABLET (FP) PO SCH (21:14)
[2016-11-30] MEDS: MEROPENEM 500 MG in DEXTROSE 5%-WATER - 100 ML IVPB SCH (02:00)
[2016-11-30] MEDS ORDERED: DOPAMINE 400 MG/D5W - 250 ML IVPB ONE ×2 (03:17→14:14)
[2016-11-30] MEDS: LEVOTHYROXINE NA 125 MCG TABLET (FP) PO SCH (06:13)
[2016-11-30] MEDS: DIVALPROEX SODIUM 250 MG TABLET E.C. (FP) PO SCH ×3 (06:13→21:22)
--- NOTE | 2016-11-30 07:52 | PN ---
Progress Note, Physician Chief Complaint: ID Meropenem day 1 Tachypneic off the ventilation mask but feels better and denies SOB Dopamine 5ug Fevers trending down Alert and oriented - Current Medication List Current Medications: Active Medications Acetaminophen (Tylenol -) 650 mg PO Q6H PRN PRN Reason: FEVER OR PAIN Last Admin: 11/28/16 08:00 Dose: 650 mg Acetaminophen (Ofirmev Injection -) 1,000 mg IVPB Q6H PRN Last Admin: 11/29/16 11:05 Dose: 1,000 mg Albuterol/Ipratropium (Duoneb -) 1 amp NEB Q4H PRN PRN Reason: SHORTNESS OF BREATH Last Admin: 11/29/16 11:18 Dose: 1 amp Aspirin (Ecotrin -) 81 mg PO DAILY [facility] Last Admin: 11/29/16 11:15 Dose: Not Given Atorvastatin Calcium (Lipitor -) 10 mg PO HS [facility] Last Admin: 11/29/16 21:14 Dose: 10 mg Budesonide/Formoterol Fumarate (Symbicort 160/4.5mcg -) 2 puff IH BID [facility] Last Admin: 11/29/16 22:48 Dose: 2 puff Divalproex Sodium (Depakote -) 250 mg PO TID [facility] Last Admin: 11/30/16 06:13 Dose: 250 mg Docusate Sodium (Colace -) 200 mg PO HS [facility] Last Admin: 11/29/16 21:14 Dose: 200 mg Heparin Sodium (Porcine) (Heparin -) 5,000 unit SQ BID [facility] Last Admin: 11/29/16 21:15 Dose: 5,000 unit Dopamine HCl 400,000 mcg/ (Sodium Chloride) 250 mls @ 10.51 mls/hr IV TITR [facility] ; 3 MCG/KG/MIN PRN Reason: Protocol Last Titration: 11/29/16 12:30 Dose: 5 mcg/kg/min Meropenem 500 mg/ Dextrose 100 mls @ 400 mls/hr IVPB Q8H-IV [facility] Last Admin: 11/30/16 02:00 Dose: 400 mls/hr Levothyroxine Sodium (Synthroid -) 125 mcg PO DAILY@0700 [facility] Last Admin: 11/30/16 06:13 Dose: 125 mcg Pantoprazole Sodium (Protonix -) 40 mg PO DAILY [facility] Last Admin: 11/29/16 11:15 Dose: Not Given Polyethylene Glycol (Miralax (For Daily Use) -) 17 gm PO DAILY [facility] Last Admin: 11/29/16 11:15 Dose: Not Given Senna (Senna -) 2 tab PO HS [facility] Last Admin: 11/29/16 20:59 Dose: 2 tab - Objective Vital Signs: Vital Signs Temperature 100.2 F H 11/30/16 06:00 Pulse Rate 92 H 11/30/16 06:00 Respiratory Rate 25 H 11/30/16 06:00 Blood Pressure 109/72 11/30/16 06:00 O2 Sat by Pulse Oximetry (%) 98 11/30/16 00:58 Constitutional: Yes: Well Nourished, Moderate Distress HENT: Yes: WNL, Atraumatic, Normocephalic Neck: Yes: WNL, Supple Cardiovascular: Yes: Regular Rate and Rhythm, S1, S2. No: Murmur Respiratory: Yes: WNL, Regular, CTA Bilaterally. No: Rales, Rhonchi Gastrointestinal: Yes: WNL, Normal Bowel Sounds. No: Tenderness, Tenderness, Epigastrium, Tenderness, Rebound Extremities: No: Cool, Cyanosis Edema: No Labs: CBC, BMP 11/28/16 05:00 11/28/16 05:00 INR, PTT INR 1.15 (0.82-1.09) H 11/27/16 18:30 Assessment/Plan Microbiology 11/27/16 19:05 Blood - Peripheral Venous Blood Culture - Preliminary Proteus Species 11/27/16 18:46 Urine - Urine - Catheterized Urine Culture - Preliminary Proteus Species Laboratory Tests 11/27/16 11/27/16 11/27/16 18:30 18:30 18:46 WBC 19.0 H D MCV Plt Count BUN Creatinine Creat Clearance w eGFR Lactic Acid 3.000 H* Ur Leukocyte Esterase 3+ H D Urine RBC 53 Urine WBC 328 11/27/16 11/28/16 11/28/16 20:30 05:00 05:00 WBC 15.2 H MCV 100.1 H Plt Count 201 D BUN 18 Creatinine 1.0 Creat Clearance w eGFR 53.76 Lactic Acid 2.005 H* Ur Leukocyte Esterase Urine RBC Urine WBC Assessment Proteus bacteremia with UTI Sepsis syndrome Congestive heart failure Atrial arrhythmias Plan Once sensitivities available switch ? Cefazolin Ampicillin Ceftriaxone Given Proteus in urine get renal sonogram looking for stones Tia WEEMS Addendum Organism sensitive to Ampicillin !!!! Will switch 40 minutes spent with patient in ICU care Tia WEEMS
--- NOTE | 2016-11-30 09:02 | PN ---
Progress Note, Physician Chief Complaint: Pt in ICU Awake today no complaints No chest pain No SOB, though appears tachypneic - Current Medication List Current Medications: Active Medications Acetaminophen (Tylenol -) 650 mg PO Q6H PRN PRN Reason: FEVER OR PAIN Last Admin: 11/28/16 08:00 Dose: 650 mg Acetaminophen (Ofirmev Injection -) 1,000 mg IVPB Q6H PRN Last Admin: 11/29/16 11:05 Dose: 1,000 mg Albuterol/Ipratropium (Duoneb -) 1 amp NEB Q4H PRN PRN Reason: SHORTNESS OF BREATH Last Admin: 11/29/16 11:18 Dose: 1 amp Aspirin (Ecotrin -) 81 mg PO DAILY [facility] Last Admin: 11/29/16 11:15 Dose: Not Given Atorvastatin Calcium (Lipitor -) 10 mg PO HS [facility] Last Admin: 11/29/16 21:14 Dose: 10 mg Budesonide/Formoterol Fumarate (Symbicort 160/4.5mcg -) 2 puff IH BID [facility] Last Admin: 11/29/16 22:48 Dose: 2 puff Divalproex Sodium (Depakote -) 250 mg PO TID [facility] Last Admin: 11/30/16 06:13 Dose: 250 mg Docusate Sodium (Colace -) 200 mg PO HS [facility] Last Admin: 11/29/16 21:14 Dose: 200 mg Heparin Sodium (Porcine) (Heparin -) 5,000 unit SQ BID [facility] Last Admin: 11/29/16 21:15 Dose: 5,000 unit Dopamine HCl 400,000 mcg/ (Sodium Chloride) 250 mls @ 10.51 mls/hr IV TITR [facility] ; 3 MCG/KG/MIN PRN Reason: Protocol Last Titration: 11/29/16 12:30 Dose: 5 mcg/kg/min Ampicillin Sodium 2 gm/ Sodium (Chloride) 100 mls @ 200 mls/hr IVPB Q6H-IV [facility] Levothyroxine Sodium (Synthroid -) 125 mcg PO DAILY@0700 [facility] Last Admin: 11/30/16 06:13 Dose: 125 mcg Pantoprazole Sodium (Protonix -) 40 mg PO DAILY [facility] Last Admin: 11/29/16 11:15 Dose: Not Given Polyethylene Glycol (Miralax (For Daily Use) -) 17 gm PO DAILY [facility] Last Admin: 11/29/16 11:15 Dose: Not Given Senna (Senna -) 2 tab PO HS [facility] Last Admin: 11/29/16 20:59 Dose: 2 tab - Objective Vital Signs: Vital Signs Temperature 99.6 F 11/30/16 07:54 Pulse Rate 88 11/30/16 07:54 Respiratory Rate 20 11/30/16 07:54 Blood Pressure 108/75 11/30/16 07:54 O2 Sat by Pulse Oximetry (%) 98 11/30/16 00:58 Constitutional: Yes: No Distress Cardiovascular: Yes: Regular Rate and Rhythm Respiratory: Yes: Diminished, Rales Gastrointestinal: Yes: Normal Bowel Sounds, Soft, Abdomen, Obese. No: Distention, Tenderness Edema: No Labs: CBC, BMP 11/28/16 05:00 11/28/16 05:00 INR, PTT INR 1.15 (0.82-1.09) H 11/27/16 18:30 Problem List - Problems (1) Severe sepsis Code(s): A41.9 - SEPSIS, UNSPECIFIED ORGANISM R65.20 - SEVERE SEPSIS WITHOUT SEPTIC SHOCK (2) UTI (urinary tract infection) Code(s): N39.0 - URINARY TRACT INFECTION, SITE NOT SPECIFIED Qualifiers: Urinary tract infection type: site unspecified Hematuria presence: with hematuria Qualified Code(s): N39.0 - Urinary tract infection, site not specified (3) Cardiomyopathy Code(s): I42.9 - CARDIOMYOPATHY, UNSPECIFIED (4) HLD (hyperlipidemia) Code(s): E78.5 - HYPERLIPIDEMIA, UNSPECIFIED Qualifiers: Hyperlipidemia type: pure hypercholesterolemia Qualified Code(s): E78.0 - Pure hypercholesterolemia (5) HTN (hypertension) Code(s): I10 - ESSENTIAL (PRIMARY) HYPERTENSION Qualifiers: Hypertension type: essential hypertension Qualified Code(s): I10 - Essential (primary) hypertension (6) Hypothyroidism Code(s): E03.9 - HYPOTHYROIDISM, UNSPECIFIED Qualifiers: Hypothyroidism type: unspecified Qualified Code(s): E03.9 - Hypothyroidism, unspecified (7) Pneumonia Code(s): J18.9 - PNEUMONIA, UNSPECIFIED ORGANISM Qualifiers: Pneumonia type: due to unspecified organism Laterality: left Lung location: lower lobe of lung Qualified Code(s): J18.9 - Pneumonia, unspecified organism Assessment/Plan PLAN IV antibiotics dc iv fluids ID follow up noted check sono kidneys currently on Dopamine drip Heparin sc for DVT prophylaxis
[2016-11-30 09:10] LABS: BASOPHIL 0.4 % (0-2.0); EOSINOPHIL 1.6 % (0-4.5); MCH 33.6 pg (25.7-33.7); MCHC 33.6 g/dl (32.0-36.0); MEAN CELL VOLUME 100.2 fl (80-96); MEAN PLT VOLUME 7.3 fl (7.5-11.1); NEUTROPHILS 79.1 % (42.8-82.8); PLATELET COUNT 189 K/MM3 (134-434); RDW 14.4 % (11.6-15.6); WHITE BLOOD COUNT 7.5 K/mm3 (4.0-10.0)
--- NOTE | 2016-11-30 09:13 | PN ---
Progress Note, Physician Chief Complaint: transferred to ICU more alert today TELE: NSR, LBBB, VPCs - Current Medication List Current Medications: Active Medications Acetaminophen (Tylenol -) 650 mg PO Q6H PRN PRN Reason: FEVER OR PAIN Last Admin: 11/28/16 08:00 Dose: 650 mg Acetaminophen (Ofirmev Injection -) 1,000 mg IVPB Q6H PRN Last Admin: 11/29/16 11:05 Dose: 1,000 mg Albuterol/Ipratropium (Duoneb -) 1 amp NEB Q4H PRN PRN Reason: SHORTNESS OF BREATH Last Admin: 11/29/16 11:18 Dose: 1 amp Aspirin (Ecotrin -) 81 mg PO DAILY [facility] Last Admin: 11/29/16 11:15 Dose: Not Given Atorvastatin Calcium (Lipitor -) 10 mg PO HS [facility] Last Admin: 11/29/16 21:14 Dose: 10 mg Budesonide/Formoterol Fumarate (Symbicort 160/4.5mcg -) 2 puff IH BID [facility] Last Admin: 11/29/16 22:48 Dose: 2 puff Divalproex Sodium (Depakote -) 250 mg PO TID [facility] Last Admin: 11/30/16 06:13 Dose: 250 mg Docusate Sodium (Colace -) 200 mg PO HS [facility] Last Admin: 11/29/16 21:14 Dose: 200 mg Heparin Sodium (Porcine) (Heparin -) 5,000 unit SQ BID [facility] Last Admin: 11/29/16 21:15 Dose: 5,000 unit Dopamine HCl 400,000 mcg/ (Sodium Chloride) 250 mls @ 10.51 mls/hr IV TITR [facility] ; 3 MCG/KG/MIN PRN Reason: Protocol Last Titration: 11/29/16 12:30 Dose: 5 mcg/kg/min Ampicillin Sodium 2 gm/ Sodium (Chloride) 100 mls @ 200 mls/hr IVPB Q6H-IV [facility] Levothyroxine Sodium (Synthroid -) 125 mcg PO DAILY@0700 [facility] Last Admin: 11/30/16 06:13 Dose: 125 mcg Pantoprazole Sodium (Protonix -) 40 mg PO DAILY [facility] Last Admin: 11/29/16 11:15 Dose: Not Given Polyethylene Glycol (Miralax (For Daily Use) -) 17 gm PO DAILY [facility] Last Admin: 11/29/16 11:15 Dose: Not Given Senna (Senna -) 2 tab PO HS [facility] Last Admin: 11/29/16 20:59 Dose: 2 tab - Objective Vital Signs: Vital Signs Temperature 99.6 F 11/30/16 07:54 Pulse Rate 88 11/30/16 07:54 Respiratory Rate 20 11/30/16 07:54 Blood Pressure 108/75 11/30/16 07:54 O2 Sat by Pulse Oximetry (%) 98 11/30/16 00:58 Constitutional: Yes: No Distress Eyes: Yes: Conjunctiva Clear Cardiovascular: Yes: Regular Rate and Rhythm Respiratory: Yes: CTA Bilaterally Gastrointestinal: Yes: Soft Edema: No Neurological: Yes: Alert Labs: INR, PTT INR 1.15 (0.82-1.09) H 11/27/16 18:30 - ....Imaging EKG: Image Reviewed Assessment/Plan IMP: Urosepsis Cardiomyopathy with chronic systolic CHF (non-ischemic) PAF History of LV thrombus GI bleed on coumadin Esophageal Cancer REC: 1. Urosepsis: abx as per ID. Wean dopamine if possible 2. PAF: Currently in NSR, was not on AC due to previous history of GI bleed on coumadin. 3. CHF: would not actively diurese while acutely infected, does not appear to be acutely volume overloaded although will monitor closely while receiving extra volume of abx and IVF. -suspect the non-zero TnI (bu < 0.5) is due to sepsis in setting of chronic systolic CHF
[2016-11-30 09:41] LABS: ALBUMIN 2.6 g/dl (3.4-5.0); ALK PHOS 86 U/L (45-117); ANION GAP 7 (8-16); BILIRUBIN,TOTAL 0.4 mg/dL (0.2-1.0); CALCIUM 8.4 mg/dL (8.5-10.1); CO2 28 mmol/L (21-32); CREATININE 0.7 mg/dL (0.55-1.02); GLUCOSE,RANDOM 146 mg/dL (74-106); SGOT/AST 27 U/L (15-37); SGPT/ALT 23 U/L (12-78); TOT PROT 6.1 g/dl (6.4-8.2)
[2016-11-30] MEDS ORDERED: PT OWN MED DRAWER 7, Y5N ONE ×3 (09:45→20:22)
[2016-11-30] MEDS: ASPIRIN COATED 81 MG TABLET.EC PO SCH (09:46)
[2016-11-30] MEDS: BUDESONIDE/FORMETEROL FUMARATE 160/4.5 mcg INHALER IH SCH ×2 (09:47→21:33)
[2016-11-30] MEDS: PANTOPRAZOLE 40 MG TABLET (FP) PO SCH (09:47)
[2016-11-30] MEDS: AMPICILLIN - 2 GM in SODIUM CHLORIDE 100 ML IVPB SCH ×3 (09:48→20:25)
[2016-11-30] MEDS: HEPARIN NA (PORCINE) 5,000 UNITS/ML 1ML VIAL SQ SCH ×2 (09:49→21:21)
[2016-11-30] MEDS: POLYETHYLENE GLYCOL 3350 119 GM BTL PO SCH (10:00)
[2016-11-30] MEDS: ALBUTEROL SO4 2.5/IPRATROPIUM 0.5 INH SOL 3 ML VIAL.NEB. NEB PRN (10:05)
--- NOTE | 2016-11-30 11:46 | PN ---
Teaching Attending Note Name of Resident: Kalen Wei ATTENDING PHYSICIAN STATEMENT I saw and evaluated the patient. I reviewed the resident's note and discussed the case with the resident. I agree with the resident's findings and plan as documented. SUBJECTIVE: Pt seen and examined in the ICU. Feels much improved today. Pt defervescing. Denies shortness of breath or chest pain. OBJECTIVE: Last Vital Signs Temp Pulse Resp BP Pulse Ox 99.6 F 85 22 117/69 96 11/30/16 07:54 11/30/16 10:05 11/30/16 10:00 11/30/16 10:00 11/30/16 10:05 Intake & Output 11/27/16 11/28/16 11/29/16 11/30/16 23:59 23:59 23:59 23:59 Intake Total 1300 309.2 308.4 Output Total 2900 600 Balance -1600 -290.8 308.4 Weight 206 lb 206 lb 203 lb 6.4 oz Gen: less tachypneic Heart: RRR Lung: scattered rales Abd: soft, nontender Ext: + edema CBC, BMP 11/30/16 09:00 11/30/16 09:00 Active Medications Acetaminophen (Tylenol -) 650 mg PO Q6H PRN PRN Reason: FEVER OR PAIN Last Admin: 11/28/16 08:00 Dose: 650 mg Acetaminophen (Ofirmev Injection -) 1,000 mg IVPB Q6H PRN Last Admin: 11/29/16 11:05 Dose: 1,000 mg Albuterol/Ipratropium (Duoneb -) 1 amp NEB Q4H PRN PRN Reason: SHORTNESS OF BREATH Last Admin: 11/30/16 10:05 Dose: 1 amp Aspirin (Ecotrin -) 81 mg PO DAILY [facility] Last Admin: 11/30/16 09:46 Dose: 81 mg Atorvastatin Calcium (Lipitor -) 10 mg PO HS [facility] Last Admin: 11/29/16 21:14 Dose: 10 mg Budesonide/Formoterol Fumarate (Symbicort 160/4.5mcg -) 2 puff IH BID [facility] Last Admin: 11/30/16 09:47 Dose: 2 puff Divalproex Sodium (Depakote -) 250 mg PO TID [facility] Last Admin: 11/30/16 06:13 Dose: 250 mg Docusate Sodium (Colace -) 200 mg PO HS [facility] Last Admin: 11/29/16 21:14 Dose: 200 mg Heparin Sodium (Porcine) (Heparin -) 5,000 unit SQ BID [facility] Last Admin: 11/30/16 09:49 Dose: 5,000 unit Dopamine HCl 400,000 mcg/ (Sodium Chloride) 250 mls @ 10.51 mls/hr IV TITR G[facility]IO ; 3 MCG/KG/MIN PRN Reason: Protocol Last Titration: 11/30/16 10:28 Dose: 2.5 mcg/kg/min Ampicillin Sodium 2 gm/ Sodium (Chloride) 100 mls @ 200 mls/hr IVPB Q6H-IV [facility] Last Admin: 11/30/16 09:48 Dose: 200 mls/hr Levothyroxine Sodium (Synthroid -) 125 mcg PO DAILY@0700 [facility] Last Admin: 11/30/16 06:13 Dose: 125 mcg Pantoprazole Sodium (Protonix -) 40 mg PO DAILY [facility] Last Admin: 11/30/16 09:47 Dose: 40 mg Polyethylene Glycol (Miralax (For Daily Use) -) 17 gm PO DAILY [facility] Last Admin: 11/30/16 10:00 Dose: 17 gm Senna (Senna -) 2 tab PO [facility] Last Admin: 11/29/16 20:59 Dose: 2 tab ASSESSMENT AND PLAN: Proteus UTI/Bacteremia Septic Shock Lactic Acidosis resolved Acute on Chronic LV Systolic Heart Failure Impending Acute Hypoxic Respiratory Failure COPD Paroxysmal Atrial Fibrillation h/o LV thrombus - IV antibiotics per ID - taper off dopamine gtt to maintain MAP >65 - O2 to keep SpO2 >90% - BiPAP as needed to assist in work of breathing - inhaled bronchodilators - aspiration precautions - PO as tolerated - DVT/GI prophylaxis Problem List - Problems (1) UTI (urinary tract infection) Code(s): N39.0 - URINARY TRACT INFECTION, SITE NOT SPECIFIED Qualifiers: Urinary tract infection type: site unspecified Hematuria presence: with hematuria Qualified Code(s): N39.0 - Urinary tract infection, site not specified (2) Bacteremia Code(s): R78.81 - BACTEREMIA (3) Septic shock Code(s): A41.9 - SEPSIS, UNSPECIFIED ORGANISM R65.21 - SEVERE SEPSIS WITH SEPTIC SHOCK (4) Acute on chronic systolic CHF (congestive heart failure), NYHA class 4 Code(s): I50.23 - ACUTE ON CHRONIC SYSTOLIC (CONGESTIVE) HEART FAILURE (5) HLD (hyperlipidemia) Code(s): E78.5 - HYPERLIPIDEMIA, UNSPECIFIED Qualifiers: Hyperlipidemia type: pure hypercholesterolemia Qualified Code(s): E78.0 - Pure hypercholesterolemia (6) HTN (hypertension) Code(s): I10 - ESSENTIAL (PRIMARY) HYPERTENSION Qualifiers: Hypertension type: essential hypertension Qualified Code(s): I10 - Essential (primary) hypertension (7) Hypothyroidism Code(s): E03.9 - HYPOTHYROIDISM, UNSPECIFIED Qualifiers: Hypothyroidism type: unspecified Qualified Code(s): E03.9 - Hypothyroidism, unspecified (8) Paroxysmal atrial fibrillation Code(s): I48.0 - PAROXYSMAL ATRIAL FIBRILLATION (9) Lactic acidosis Code(s): E87.2 - ACIDOSIS (10) Elevated troponin Code(s): R79.89 - OTHER SPECIFIED ABNORMAL FINDINGS OF BLOOD CHEMISTRY
--- NOTE | 2016-11-30 11:58 | PN ---
Physical Exam: SUBJECTIVE: Patient seen and examined at bedside. No overnight events. No new complaints. Mental status is back to baseline. Denies CP, LEBRON, SOB, palpitations , Abd. pain, N/V. OBJECTIVE: Vital Signs Period Temp Pulse Resp BP Sys/Conner Pulse Ox Last 24 Hr 97.8 F-99.9 F 81-101 18-31 80-117/53-75 96-100 GENERAL: The patient is awake, alert, in no acute distress. HEAD: Normal with no signs of trauma. EYES: PERRL, extraocular movements intact, sclera anicteric, conjunctiva clear. No ptosis. ENT: moist mucous membranes. NECK: supple, No JVD. LUNGS: Bilateral scattered rales, minimal wheezing. HEART: Regular rate and rhythm, S1, S2 without murmur, rub or gallop. ABDOMEN: Soft, nontender, obese EXTREMITIES: 2+ pulses, warm, well-perfused, no edema. NEUROLOGICAL: Normal speech, gait not observed. PSYCH: Normal mood, normal affect. SKIN: Warm, dry, normal turgor, no rashes or lesions noted Laboratory Results - last 24 hr 11/29/16 11/29/16 11/29/16 12:45 15:15 15:15 WBC RBC Hgb Hct MCV MCHC RDW Plt Count MPV Neutrophils % Lymphocytes % Monocytes % Eosinophils % Basophils % Puncture Site Right radial ABG pH 7.38 ABG pCO2 at Pt Temp 41.0 ABG pO2 at Pt Temp 67.9 L ABG HCO3 23.9 ABG O2 Sat (Measured) 92.4 ABG O2 Content 13.0 L ABG Base Excess -0.6 Nacho Test Positive O2 Delivery Device Nasal Oxygen Flow Rate 3l PEEP 0.0 Sodium Potassium Chloride Carbon Dioxide Anion Gap BUN Creatinine Creat Clearance w eGFR Random Glucose Calcium Total Bilirubin AST ALT Alkaline Phosphatase Ammonia 30.89 Total Protein Albumin Valproic Acid 33.696 L 11/30/16 11/30/16 09:00 09:00 WBC 7.5 D RBC 3.25 L Hgb 10.9 Hct 32.6 MCV 100.2 H MCHC 33.6 RDW 14.4 Plt Count 189 MPV 7.3 L Neutrophils % 79.1 Lymphocytes % 10.5 D Monocytes % 8.4 Eosinophils % 1.6 D Basophils % 0.4 Puncture Site ABG pH ABG pCO2 at Pt Temp ABG pO2 at Pt Temp ABG HCO3 ABG O2 Sat (Measured) ABG O2 Content ABG Base Excess Nacho Test O2 Delivery Device Oxygen Flow Rate PEEP Sodium 139 Potassium 3.5 Chloride 104 Carbon Dioxide 28 Anion Gap 7 L BUN 12 D Creatinine 0.7 D Creat Clearance w eGFR > 60 Random Glucose 146 H D Calcium 8.4 L Total Bilirubin 0.4 AST 27 D ALT 23 D Alkaline Phosphatase 86 D Ammonia Total Protein 6.1 L Albumin 2.6 L Valproic Acid Active Medications Generic Name Dose Route Start Last Admin Trade Name Freq PRN Reason Stop Dose Admin Acetaminophen 650 mg 11/27/16 20:59 11/28/16 08:00 Tylenol - PO 650 mg Q6H PRN Administration FEVER OR PAIN Acetaminophen 1,000 mg 11/28/16 14:10 11/29/16 11:05 Ofirmev Injection - IVPB 1,000 mg Q6H PRN Administration Albuterol/Ipratropium 1 amp 11/29/16 10:44 11/30/16 10:05 Duoneb - NEB 1 amp Q4H PRN Administration SHORTNESS OF BREATH Aspirin 81 mg 11/28/16 10:00 11/30/16 09:46 Ecotrin - PO 81 mg DAILY [facility] Administration Atorvastatin Calcium 10 mg 11/27/16 22:00 11/29/16 21:14 Lipitor - PO 10 mg HS [facility] Administration Budesonide/Formoterol Fumarate 2 puff 11/28/16 22:00 11/30/16 09:47 Symbicort 160/4.5mcg - IH 2 puff BID [facility] Administration Divalproex Sodium 250 mg 11/28/16 14:00 11/30/16 06:13 Depakote - PO 250 mg TID [facility] Administration Docusate Sodium 200 mg 11/27/16 22:00 11/29/16 21:14 Colace - PO 200 mg HS [facility] Administration Heparin Sodium (Porcine) 5,000 unit 11/28/16 22:00 11/30/16 09:49 Heparin - SQ 5,000 unit BID [facility] Administration Dopamine HCl 400,000 mcg/ 250 mls @ 10.51 mls/hr 11/29/16 12:00 11/30/16 10:28 Sodium Chloride IV 2.5 mcg/kg/min TITR G[facility]IO Titration Protocol 3 MCG/KG/MIN Ampicillin Sodium 2 gm/ Sodium 100 mls @ 200 mls/hr 11/30/16 09:00 11/30/16 09: 48 Chloride IVPB 200 mls/hr Q6H-IV [facility] Administration Levothyroxine Sodium 125 mcg 11/28/16 07:00 11/30/16 06:13 Synthroid - PO 125 mcg DAILY@0700 [facility] Administration Pantoprazole Sodium 40 mg 11/28/16 10:00 11/30/16 09:47 Protonix - PO 40 mg DAILY [facility] Administration Polyethylene Glycol 17 gm 11/28/16 10:00 11/30/16 10:00 Miralax (For Daily Use) - PO 17 gm DAILY [facility] Administration Senna 2 tab 11/27/16 22:00 11/29/16 20:59 Senna - PO 2 tab HS [facility] Administration ASSESSMENT/PLAN: 76y F from [facility] -- GERD, esophageal ca, copd, hypothyroidism, constipation , HL, psych d/o admitted for sepsis 2/2 UTI transferred to ICU for management of hemodynamics on Dopamine drip. Neuro: * Mental status back to baseline. * Will continue to monitor for acute changes. * Valproic Acid levels low yesterday. Pulmonary: * BiPaP as needed to assist in work of breathing. * Duonebs Q4 PRN * Aspiration precautions. * Repeat CXR Cardiovascular: * Will wean of the Dopamine. * PAF- Currently in NSR; no AC due to h/o GI bleed. * CHF systolic-Dr. Salcido cardiology recommends- no active diureses while active infection. ID: * Sepsis 2/2 Proteus UTI. * WBC trending down * WIll switch to Amoxicillin monotherapy based off sensitivities. * Lactic Acid WNL * ID consult appreciated. Renal: * Kidney function has improved and remained stable * Kidney US today to r/o stones. * Avoid nephrotoxins. F/E/N: * No IVF at this time given h/o CHF and requiring pressor support. * Electrolytes WNL - will repeat labs in AM * Regular diet. . Dispo: Will continue to monitor in ICU. Visit type - Emergency Visit Emergency Visit: Yes ED Registration Date: 11/27/16 Care time: The patient presented to the Emergency Department on the above date and was hospitalized for further evaluation of their emergent condition. - New Patient This patient is new to me today: Yes Date on this admission: 11/30/16 - Critical Care Critical Care patient: Yes Total Critical Care Time (in minutes): 32 Critical Care Statement: The care of this patient involved high complexity decision making to prevent further life threatening deterioration of the patient 's condition and/or to evalute & treat vital organ system(s) failure or risk of failure.
[2016-11-30] MEDS: DOPAMINE HCL 400,000 MCG in SODIUM CHLORIDE 240 ML IV SCH (14:17)
[2016-11-30] MEDS: ATORVASTATIN CA 10 MG TABLET (FP) PO SCH (21:23)
[2016-11-30] MEDS: DOCUSATE SODIUM 100 MG CAPSULE (FP) PO SCH (21:23)
[2016-11-30] MEDS: SENNOSIDES 8.6MG TABLET (FP) PO SCH (21:25)
[2016-12-01] MEDS: AMPICILLIN - 2 GM in SODIUM CHLORIDE 100 ML IVPB SCH ×4 (03:23→20:38)
[2016-12-01] MEDS: ALBUTEROL SO4 2.5/IPRATROPIUM 0.5 INH SOL 3 ML VIAL.NEB. NEB PRN ×2 (03:30→18:51)
[2016-12-01] MEDS: DIVALPROEX SODIUM 250 MG TABLET E.C. (FP) PO SCH ×3 (06:28→21:09)
[2016-12-01] MEDS: LEVOTHYROXINE NA 125 MCG TABLET (FP) PO SCH (06:29)
[2016-12-01 06:35] LABS: BASOPHIL 0.4 % (0-2.0); EOSINOPHIL 1.9 % (0-4.5); MCH 33.5 pg (25.7-33.7); MCHC 33.5 g/dl (32.0-36.0); MEAN CELL VOLUME 99.8 fl (80-96); MEAN PLT VOLUME 7.6 fl (7.5-11.1); NEUTROPHILS 75.3 % (42.8-82.8); PLATELET COUNT 205 K/MM3 (134-434); RDW 14.1 % (11.6-15.6); WHITE BLOOD COUNT 7.1 K/mm3 (4.0-10.0)
--- NOTE | 2016-12-01 07:40 | PN ---
Progress Note (short form) - Note Progress Note: ID Followup ICU for Gram negative bacteremia Switch to IV Ampicillin day4 Rx Alert NAD Selected Entries 12/01/16 06:00 Temperature 98.4 F Pulse Rate 90 Respiratory 22 Rate Blood Pressure 105/52 Lung Clear ausculatation Cor S1 S2 RR no murmur Abd Soft nontender Ext No edema Microbiology 11/27/16 19:05 Blood - Peripheral Venous Blood Culture - Final Proteus Mirabilis 11/27/16 19:05 Blood - Peripheral Venous Blood Culture - Final Proteus Mirabilis 11/27/16 18:46 Urine - Urine - Catheterized Urine Culture - Final Proteus Mirabilis Laboratory Tests 11/30/16 12/01/16 09:00 05:20 WBC 7.1 RBC 3.13 L Hct 31.3 L Plt Count 205 BUN 12 D Creatinine 0.7 D Sono Normal kidneys no stones Chest xray No infiltrate Assessment Proteus bactermia with UTI on IV meds Plan Needs 14 days of total IV therapy but could give po to complete Tia WEEMS
[2016-12-01 07:55] LABS: ANISOCYTOSIS 1+; PLATELET ESTIMATE ADEQUATE (NORMAL)
[2016-12-01] MEDS ORDERED: PT OWN MED DRAWER 7, Y5N ONE ×4 (08:34→20:08)
[2016-12-01 08:52] LABS: ALBUMIN 2.5 g/dl (3.4-5.0); ANION GAP 3 (8-16); CALCIUM 8.4 mg/dL (8.5-10.1); CO2 27 mmol/L (21-32); GLUCOSE,RANDOM 117 mg/dL (74-106)
[2016-12-01 09:00] LABS: ALK PHOS 87 U/L (45-117); BILIRUBIN,TOTAL 0.3 mg/dL (0.2-1.0); CREATININE 0.5 mg/dL (0.55-1.02); SGOT/AST 28 U/L (15-37); SGPT/ALT 29 U/L (12-78); TOT PROT 5.7 g/dl (6.4-8.2)
--- NOTE | 2016-12-01 09:56 | PN ---
Progress Note, Physician Chief Complaint: Pt in ICU Awake more no complaints No chest pain No SOB, feels comfortable - Current Medication List Current Medications: Active Medications Acetaminophen (Tylenol -) 650 mg PO Q6H PRN PRN Reason: FEVER OR PAIN Last Admin: 11/28/16 08:00 Dose: 650 mg Acetaminophen (Ofirmev Injection -) 1,000 mg IVPB Q6H PRN Last Admin: 11/29/16 11:05 Dose: 1,000 mg Albuterol/Ipratropium (Duoneb -) 1 amp NEB Q4H PRN PRN Reason: SHORTNESS OF BREATH Last Admin: 12/01/16 03:30 Dose: 1 amp Aspirin (Ecotrin -) 81 mg PO DAILY [facility] Last Admin: 11/30/16 09:46 Dose: 81 mg Atorvastatin Calcium (Lipitor -) 10 mg PO HS [facility] Last Admin: 11/30/16 21:23 Dose: 10 mg Budesonide/Formoterol Fumarate (Symbicort 160/4.5mcg -) 2 puff IH BID [facility] Last Admin: 11/30/16 21:33 Dose: 2 puff Divalproex Sodium (Depakote -) 250 mg PO TID [facility] Last Admin: 12/01/16 06:28 Dose: 250 mg Docusate Sodium (Colace -) 200 mg PO HS [facility] Last Admin: 11/30/16 21:23 Dose: 200 mg Heparin Sodium (Porcine) (Heparin -) 5,000 unit SQ BID [facility] Last Admin: 11/30/16 21:21 Dose: 5,000 unit Dopamine HCl 400,000 mcg/ (Sodium Chloride) 250 mls @ 10.51 mls/hr IV TITR [facility] ; 3 MCG/KG/MIN PRN Reason: Protocol Last Titration: 11/30/16 18:15 Dose: 0 mcg/kg/min Ampicillin Sodium 2 gm/ Sodium (Chloride) 100 mls @ 200 mls/hr IVPB Q6H-IV [facility] Last Admin: 12/01/16 08:35 Dose: 200 mls/hr Levothyroxine Sodium (Synthroid -) 125 mcg PO DAILY@0700 [facility] Last Admin: 12/01/16 06:29 Dose: 125 mcg Pantoprazole Sodium (Protonix -) 40 mg PO DAILY [facility] Last Admin: 11/30/16 09:47 Dose: 40 mg Polyethylene Glycol (Miralax (For Daily Use) -) 17 gm PO DAILY [facility] Last Admin: 11/30/16 10:00 Dose: 17 gm Potassium Chloride (K-Dur -) 40 meq PO ONCE ONE Stop: 12/01/16 09:56 Senna (Senna -) 2 tab PO HS [facility] Last Admin: 11/30/16 21:25 Dose: 2 tab - Objective Vital Signs: Vital Signs Temperature 98.4 F 12/01/16 06:00 Pulse Rate 92 H 12/01/16 08:00 Respiratory Rate 22 12/01/16 08:00 Blood Pressure 115/71 12/01/16 08:00 O2 Sat by Pulse Oximetry (%) 94 L 12/01/16 07:26 Constitutional: Yes: No Distress, Calm Cardiovascular: Yes: Regular Rate and Rhythm Respiratory: Yes: Diminished Gastrointestinal: Yes: Normal Bowel Sounds, Soft, Abdomen, Obese. No: Distention, Tenderness Edema: No Labs: CBC, BMP 12/01/16 05:20 12/01/16 06:00 INR, PTT INR 1.15 (0.82-1.09) H 11/27/16 18:30 Problem List - Problems (1) Severe sepsis Code(s): A41.9 - SEPSIS, UNSPECIFIED ORGANISM R65.20 - SEVERE SEPSIS WITHOUT SEPTIC SHOCK (2) UTI (urinary tract infection) Code(s): N39.0 - URINARY TRACT INFECTION, SITE NOT SPECIFIED Qualifiers: Urinary tract infection type: site unspecified Hematuria presence: with hematuria Qualified Code(s): N39.0 - Urinary tract infection, site not specified (3) Cardiomyopathy Code(s): I42.9 - CARDIOMYOPATHY, UNSPECIFIED (4) HLD (hyperlipidemia) Code(s): E78.5 - HYPERLIPIDEMIA, UNSPECIFIED Qualifiers: Hyperlipidemia type: pure hypercholesterolemia Qualified Code(s): E78.0 - Pure hypercholesterolemia (5) HTN (hypertension) Code(s): I10 - ESSENTIAL (PRIMARY) HYPERTENSION Qualifiers: Hypertension type: essential hypertension Qualified Code(s): I10 - Essential (primary) hypertension (6) Hypothyroidism Code(s): E03.9 - HYPOTHYROIDISM, UNSPECIFIED Qualifiers: Hypothyroidism type: unspecified Qualified Code(s): E03.9 - Hypothyroidism, unspecified (7) Pneumonia Code(s): J18.9 - PNEUMONIA, UNSPECIFIED ORGANISM Qualifiers: Pneumonia type: due to unspecified organism Laterality: left Lung location: lower lobe of lung Qualified Code(s): J18.9 - Pneumonia, unspecified organism Assessment/Plan PLAN IV antibiotics-- total 14 days Ampicillin ID follow up noted check sono kidneys off Dopamine drip -- BP maintained Renal sono-- normal kidneys , no stones CXR- no infiltrate Heparin sc for DVT prophylaxis ok to transfer to the floor
[2016-12-01] MEDS ORDERED: POTASSIUM CHLORIDE TABS 20 MEQ TABLET.ER (FP) PO ONE (10:00)
[2016-12-01] MEDS: POLYETHYLENE GLYCOL 3350 119 GM BTL PO SCH (10:00)
[2016-12-01] MEDS: ASPIRIN COATED 81 MG TABLET.EC PO SCH (11:19)
[2016-12-01] MEDS: PANTOPRAZOLE 40 MG TABLET (FP) PO SCH (11:20)
[2016-12-01] MEDS: BUDESONIDE/FORMETEROL FUMARATE 160/4.5 mcg INHALER IH SCH ×2 (11:21→21:10)
[2016-12-01] MEDS: HEPARIN NA (PORCINE) 5,000 UNITS/ML 1ML VIAL SQ SCH ×2 (11:21→21:08)
--- NOTE | 2016-12-01 12:02 | PN ---
Teaching Attending Note Name of Resident: Kalen Wei ATTENDING PHYSICIAN STATEMENT I saw and evaluated the patient. I reviewed the resident's note and discussed the case with the resident. I agree with the resident's findings and plan as documented. SUBJECTIVE: Pt seen and examined in the ICU. Off dopamine gtt. Denies shortness of breath or chest pain. No fevers recorded. OBJECTIVE: Last Vital Signs Temp Pulse Resp BP Pulse Ox 99.1 F 87 34 H 112/71 95 12/01/16 10:00 12/01/16 10:03 12/01/16 10:00 12/01/16 10:00 12/01/16 10:03 Intake & Output 11/28/16 11/29/16 11/30/16 12/01/16 23:59 23:59 23:59 23:59 Intake Total 1300 309.2 1766.8 525 Output Total 2900 600 Balance -1600 -290.8 1766.8 525 Weight 206 lb 203 lb 6.4 oz 203 lb 6.4 oz Gen: NAD at rest Heart: RRR Lung: basilar rales Abd: soft, nontender Ext: + edema CBC, BMP 12/01/16 05:20 12/01/16 06:00 Active Medications Acetaminophen (Tylenol -) 650 mg PO Q6H PRN PRN Reason: FEVER OR PAIN Last Admin: 11/28/16 08:00 Dose: 650 mg Acetaminophen (Ofirmev Injection -) 1,000 mg IVPB Q6H PRN Last Admin: 11/29/16 11:05 Dose: 1,000 mg Albuterol/Ipratropium (Duoneb -) 1 amp NEB Q4H PRN PRN Reason: SHORTNESS OF BREATH Last Admin: 12/01/16 03:30 Dose: 1 amp Aspirin (Ecotrin -) 81 mg PO DAILY [facility] Last Admin: 12/01/16 11:19 Dose: 81 mg Atorvastatin Calcium (Lipitor -) 10 mg PO HS [facility] Last Admin: 11/30/16 21:23 Dose: 10 mg Budesonide/Formoterol Fumarate (Symbicort 160/4.5mcg -) 2 puff IH BID [facility] Last Admin: 12/01/16 11:21 Dose: 2 puff Divalproex Sodium (Depakote -) 250 mg PO TID [facility] Last Admin: 01/05/17 06:28 Dose: 250 mg Docusate Sodium (Colace -) 200 mg PO HS [facility] Last Admin: 11/30/16 21:23 Dose: 200 mg Heparin Sodium (Porcine) (Heparin -) 5,000 unit SQ BID [facility] Last Admin: 12/01/16 11:21 Dose: 5,000 unit Dopamine HCl 400,000 mcg/ (Sodium Chloride) 250 mls @ 10.51 mls/hr IV TITR [facility] ; 3 MCG/KG/MIN PRN Reason: Protocol Last Titration: 11/30/16 18:15 Dose: 0 mcg/kg/min Ampicillin Sodium 2 gm/ Sodium (Chloride) 100 mls @ 200 mls/hr IVPB Q6H-IV [facility] Last Admin: 12/01/16 08:35 Dose: 200 mls/hr Levothyroxine Sodium (Synthroid -) 125 mcg PO DAILY@0700 [facility] Last Admin: 12/01/16 06:29 Dose: 125 mcg Pantoprazole Sodium (Protonix -) 40 mg PO DAILY [facility] Last Admin: 12/01/16 11:20 Dose: 40 mg Polyethylene Glycol (Miralax (For Daily Use) -) 17 gm PO DAILY [facility] Last Admin: 11/30/16 10:00 Dose: 17 gm Senna (Senna -) 2 tab PO [facility] Last Admin: 11/30/16 21:25 Dose: 2 tab ASSESSMENT AND PLAN: Proteus UTI/Bacteremia Septic Shock resolving Lactic Acidosis resolved Acute on Chronic LV Systolic Heart Failure Impending Acute Hypoxic Respiratory Failure COPD Paroxysmal Atrial Fibrillation h/o LV thrombus - IV antibiotics per ID - O2 to keep SpO2 >90% - BiPAP as needed to assist in work of breathing - lasix as needed - inhaled bronchodilators - aspiration precautions - PO as tolerated - DVT/GI prophylaxis - can monitor on floor Problem List - Problems (1) UTI (urinary tract infection) Code(s): N39.0 - URINARY TRACT INFECTION, SITE NOT SPECIFIED Qualifiers: Urinary tract infection type: site unspecified Hematuria presence: with hematuria Qualified Code(s): N39.0 - Urinary tract infection, site not specified (2) Bacteremia Code(s): R78.81 - BACTEREMIA (3) Septic shock Code(s): A41.9 - SEPSIS, UNSPECIFIED ORGANISM R65.21 - SEVERE SEPSIS WITH SEPTIC SHOCK (4) Acute on chronic systolic CHF (congestive heart failure), NYHA class 4 Code(s): I50.23 - ACUTE ON CHRONIC SYSTOLIC (CONGESTIVE) HEART FAILURE (5) HLD (hyperlipidemia) Code(s): E78.5 - HYPERLIPIDEMIA, UNSPECIFIED Qualifiers: Hyperlipidemia type: pure hypercholesterolemia Qualified Code(s): E78.0 - Pure hypercholesterolemia (6) HTN (hypertension) Code(s): I10 - ESSENTIAL (PRIMARY) HYPERTENSION Qualifiers: Hypertension type: essential hypertension Qualified Code(s): I10 - Essential (primary) hypertension (7) Hypothyroidism Code(s): E03.9 - HYPOTHYROIDISM, UNSPECIFIED Qualifiers: Hypothyroidism type: unspecified Qualified Code(s): E03.9 - Hypothyroidism, unspecified (8) Paroxysmal atrial fibrillation Code(s): I48.0 - PAROXYSMAL ATRIAL FIBRILLATION (9) Lactic acidosis Code(s): E87.2 - ACIDOSIS (10) Elevated troponin Code(s): R79.89 - OTHER SPECIFIED ABNORMAL FINDINGS OF BLOOD CHEMISTRY
--- NOTE | 2016-12-01 14:01 | PN ---
Progress Note, Physician History of Present Illness: seen and examined today in nad. no overnight events. no new complaints. - Current Medication List Current Medications: Active Medications Acetaminophen (Tylenol -) 650 mg PO Q6H PRN PRN Reason: FEVER OR PAIN Last Admin: 11/28/16 08:00 Dose: 650 mg Acetaminophen (Ofirmev Injection -) 1,000 mg IVPB Q6H PRN Last Admin: 11/29/16 11:05 Dose: 1,000 mg Albuterol/Ipratropium (Duoneb -) 1 amp NEB Q4H PRN PRN Reason: SHORTNESS OF BREATH Last Admin: 12/01/16 03:30 Dose: 1 amp Aspirin (Ecotrin -) 81 mg PO DAILY [facility] Last Admin: 12/01/16 11:19 Dose: 81 mg Atorvastatin Calcium (Lipitor -) 10 mg PO HS [facility] Last Admin: 11/30/16 21:23 Dose: 10 mg Budesonide/Formoterol Fumarate (Symbicort 160/4.5mcg -) 2 puff IH BID [facility] Last Admin: 12/01/16 11:21 Dose: 2 puff Divalproex Sodium (Depakote -) 250 mg PO TID [facility] Last Admin: 12/01/16 06:28 Dose: 250 mg Docusate Sodium (Colace -) 200 mg PO HS [facility] Last Admin: 11/30/16 21:23 Dose: 200 mg Heparin Sodium (Porcine) (Heparin -) 5,000 unit SQ BID [facility] Last Admin: 12/01/16 11:21 Dose: 5,000 unit Dopamine HCl 400,000 mcg/ (Sodium Chloride) 250 mls @ 10.51 mls/hr IV TITR G[facility]ACIO ; 3 MCG/KG/MIN PRN Reason: Protocol Last Titration: 11/30/16 18:15 Dose: 0 mcg/kg/min Ampicillin Sodium 2 gm/ Sodium (Chloride) 100 mls @ 200 mls/hr IVPB Q6H-IV [facility] Last Admin: 12/01/16 08:35 Dose: 200 mls/hr Levothyroxine Sodium (Synthroid -) 125 mcg PO DAILY@0700 [facility] Last Admin: 12/01/16 06:29 Dose: 125 mcg Pantoprazole Sodium (Protonix -) 40 mg PO DAILY [facility] Last Admin: 12/01/16 11:20 Dose: 40 mg Polyethylene Glycol (Miralax (For Daily Use) -) 17 gm PO DAILY [facility] Last Admin: 11/30/16 10:00 Dose: 17 gm Senna (Senna -) 2 tab PO HS [facility] Last Admin: 11/30/16 21:25 Dose: 2 tab - Objective Vital Signs: Vital Signs Temperature 99.1 F 12/01/16 10:00 Pulse Rate 88 12/01/16 12:00 Respiratory Rate 19 12/01/16 12:00 Blood Pressure 75/56 12/01/16 12:00 O2 Sat by Pulse Oximetry (%) 95 12/01/16 10:03 Constitutional: Yes: No Distress, Calm, Obese Eyes: Yes: WNL, Conjunctiva Clear, EOM Intact, PERRL HENT: Yes: WNL, Atraumatic, Normocephalic Neck: Yes: WNL, Supple, Trachea Midline Cardiovascular: Yes: Regular Rate and Rhythm, S1, S2. No: Bradycardia, Tachycardia, Pulse Irregular, Bruit, JVD, Gallop, Murmur, Rub, S3, S4, Varicosities Respiratory: Yes: Regular, Diminished, Rales, Rhonchi. No: Wheezes Gastrointestinal: Yes: WNL, Normal Bowel Sounds, Soft. No: Distention, Tenderness Musculoskeletal: Yes: WNL Edema: No Peripheral Pulses WNL: Yes Peripheral Pulses: Left Doralis Pedis: 2+, Right Dorsalis Pedis: 2+ Integumentary: Yes: WNL Neurological: Yes: Alert Psychiatric: Yes: Alert Labs: CBC, BMP 12/01/16 05:20 12/01/16 06:00 INR, PTT INR 1.15 (0.82-1.09) H 11/27/16 18:30 - ....Imaging Chest X-ray: Report Reviewed, Image Reviewed EKG: Report Reviewed, Image Reviewed Other: Report Reviewed, Image Reviewed (tele-nsr, pvcs, occ couplets and triplets) Assessment/Plan IMP: Urosepsis Cardiomyopathy with chronic systolic CHF (non-ischemic) PAF History of LV thrombus GI bleed on coumadin Esophageal Cancer REC: Urosepsis: -improving -off dopamine gtt -receiving ABx Pafib -has remained in nsr -not on AC due to h/o GI bleed -cont ASA 81mg daily -has not required AV douglas blockers CHF-chronic systolic CHF -has not required diuresis, will monitor for need Elevated troponin -slightly elevated in setting of sepsis and chronic systolic CHF -unlikely ACS -cont ASA and statin
--- NOTE | 2016-12-01 16:46 | PN ---
Physical Exam: SUBJECTIVE: Patient seen and examined at bedside. No overnight events. No new complaints. Denies CP, LEBRON, SOB, N/V. OBJECTIVE: Vital Signs Period Temp Pulse Resp BP Sys/Conner Pulse Ox Last 24 Hr 96.9 F-99.2 F 83-95 19-35 75-115/50-71 94-95 GENERAL: The patient is awake, alert, in no acute distress. HEAD: Normal with no signs of trauma. EYES: PERRL, extraocular movements intact, sclera anicteric, conjunctiva clear. No ptosis. ENT: moist mucous membranes. NECK: supple, No JVD. LUNGS: Bilateral scattered rales, minimal wheezing. HEART: Regular rate and rhythm, S1, S2 without murmur, rub or gallop. ABDOMEN: Soft, nontender, obese EXTREMITIES: 2+ pulses, warm, well-perfused, no edema. NEUROLOGICAL: Normal speech, gait not observed. PSYCH: Normal mood, normal affect. SKIN: Warm, dry, normal turgor, no rashes or lesions noted Laboratory Results - last 24 hr 12/01/16 12/01/16 05:20 06:00 WBC 7.1 RBC 3.13 L Hgb 10.5 L Hct 31.3 L MCV 99.8 H MCHC 33.5 RDW 14.1 Plt Count 205 MPV 7.6 Neutrophils % 75.3 Lymphocytes % 12.9 D Monocytes % 9.5 Eosinophils % 1.9 Basophils % 0.4 Platelet Estimate Adequate Anisocytosis 1+ Sodium 137 Potassium 3.3 L Chloride 107 Carbon Dioxide 27 Anion Gap 3 L BUN 9 D Creatinine 0.5 L D Creat Clearance w eGFR > 60 Random Glucose 117 H Calcium 8.4 L Total Bilirubin 0.3 D AST 28 ALT 29 D Alkaline Phosphatase 87 Total Protein 5.7 L Albumin 2.5 L Active Medications Generic Name Dose Route Start Last Admin Trade Name Freq PRN Reason Stop Dose Admin Acetaminophen 650 mg 11/27/16 20:59 11/28/16 08:00 Tylenol - PO 650 mg Q6H PRN Administration FEVER OR PAIN Acetaminophen 1,000 mg 11/28/16 14:10 11/29/16 11:05 Ofirmev Injection - IVPB 1,000 mg Q6H PRN Administration Albuterol/Ipratropium 1 amp 11/29/16 10:44 12/01/16 03:30 Duoneb - NEB 1 amp Q4H PRN Administration SHORTNESS OF BREATH Aspirin 81 mg 11/28/16 10:00 12/01/16 11:19 Ecotrin - PO 81 mg DAILY GELACIO Administration Atorvastatin Calcium 10 mg 11/27/16 22:00 11/30/16 21:23 Lipitor - PO 10 mg HS GELACIO Administration Budesonide/Formoterol Fumarate 2 puff 11/28/16 22:00 12/01/16 11:21 Symbicort 160/4.5mcg - IH 2 puff BID GELACIO Administration Divalproex Sodium 250 mg 11/28/16 14:00 12/01/16 06:28 Depakote - PO 250 mg TID GELACIO Administration Docusate Sodium 200 mg 11/27/16 22:00 11/30/16 21:23 Colace - PO 200 mg HS GELACIO Administration Heparin Sodium (Porcine) 5,000 unit 11/28/16 22:00 12/01/16 11:21 Heparin - SQ 5,000 unit BID GELACIO Administration Dopamine HCl 400,000 mcg/ 250 mls @ 10.51 mls/hr 11/29/16 12:00 11/30/16 18:15 Sodium Chloride IV 0 mcg/kg/min TITR GELACIO Titration Protocol 3 MCG/KG/MIN Ampicillin Sodium 2 gm/ Sodium 100 mls @ 200 mls/hr 11/30/16 09:00 12/01/16 08: 35 Chloride IVPB 200 mls/hr Q6H-IV GELACIO Administration Levothyroxine Sodium 125 mcg 11/28/16 07:00 12/01/16 06:29 Synthroid - PO 125 mcg DAILY@0700 GELACIO Administration Pantoprazole Sodium 40 mg 11/28/16 10:00 12/01/16 11:20 Protonix - PO 40 mg DAILY GELACIO Administration Polyethylene Glycol 17 gm 11/28/16 10:00 11/30/16 10:00 Miralax (For Daily Use) - PO 17 gm DAILY GELACIO Administration Senna 2 tab 11/27/16 22:00 11/30/16 21:25 Senna - PO 2 tab HS GELACIO Administration ASSESSMENT/PLAN: 76y F from [facility] -- GERD, esophageal ca, copd, hypothyroidism, constipation , HL, psych d/o admitted for sepsis 2/2 UTI transferred to ICU for management of hemodynamics on Dopamine drip. Neuro: Mental status back to baseline. Will continue to monitor for acute changes. Monitor Pulmonary: BiPaP as needed to assist in work of breathing. Duonebs Q4 PRN Aspiration precautions. Repeat CXR Cardiovascular: Will wean of the Dopamine. PAF- Currently in NSR; no AC due to h/o GI bleed. CHF systolic-Dr. Salcido cardiology recommends- no active diureses while active infection. ID: Sepsis 2/2 Proteus UTI. WBC trending down Continue- Amoxicillin monotherapy based off sensitivities. Lactic Acid WNL ID consult appreciated. Renal: Kidney function has improved and remained stable Kidney US today was negative for stones. Avoid nephrotoxins. F/E/N: No IVF at this time given h/o CHF and requiring pressor support. Electrolytes WNL - will repeat labs in AM Regular diet. Dispo: Can be transferred to floors as soon as bed available. Visit type - Emergency Visit Emergency Visit: Yes ED Registration Date: 11/27/16 Care time: The patient presented to the Emergency Department on the above date and was hospitalized for further evaluation of their emergent condition. - New Patient This patient is new to me today: No - Critical Care Critical Care patient: Yes Total Critical Care Time (in minutes): 31 Critical Care Statement: The care of this patient involved high complexity decision making to prevent further life threatening deterioration of the patient 's condition and/or to evalute & treat vital organ system(s) failure or risk of failure.
[2016-12-01] MEDS: DOPAMINE HCL 400,000 MCG in SODIUM CHLORIDE 240 ML IV SCH (17:05)
[2016-12-01] MEDS: DOCUSATE SODIUM 100 MG CAPSULE (FP) PO SCH (21:08)
[2016-12-01] MEDS: ATORVASTATIN CA 10 MG TABLET (FP) PO SCH (21:09)
[2016-12-01] MEDS: SENNOSIDES 8.6MG TABLET (FP) PO SCH (21:09)
[2016-12-02] MEDS: AMPICILLIN - 2 GM in SODIUM CHLORIDE 100 ML IVPB SCH ×4 (02:06→21:41)
[2016-12-02] MEDS: DIVALPROEX SODIUM 250 MG TABLET E.C. (FP) PO SCH ×3 (05:38→23:14)
[2016-12-02] MEDS: LEVOTHYROXINE NA 125 MCG TABLET (FP) PO SCH (06:11)
--- NOTE | 2016-12-02 07:24 | PN ---
Progress Note (short form) - Note Progress Note: pt seen/ examined / chart reviewed. comfortable Denies pain Afebrile Vital Signs Temp 98.2 F 12/02/16 06:00 Pulse 71 12/02/16 06:00 Resp 29 H 12/02/16 06:00 BP 115/66 12/02/16 06:00 Pulse Ox 95 12/01/16 21:00 Intake & Output 12/01/16 12/01/16 12/02/16 11:59 23:59 11:59 Intake Total 525 1430 220 Output Total 3 Balance 525 1427 220 Weight 203 lb 6.4 oz 200 lb 1.6 oz Intake: IV 25 0 Intropin - 400,000 Mcg In 25 0 Normal Saline - 240 ml @ 3 MCG/KG/MIN 10.51 mls/ hr IV TITR GELACIO Rx#: [id number] IVPB 100 300 100 Oral 400 1130 120 Output: Emesis 3 Other: Voiding Method Incontinent Incontinent Incontinent # Unmeasured Voids Smith 3 3 Void 2 3 Bowel Movement No No No Weight Measurement Method Built [facility] Active Medications Acetaminophen (Tylenol -) 650 mg PO Q6H PRN PRN Reason: FEVER OR PAIN Last Admin: 11/28/16 08:00 Dose: 650 mg Acetaminophen (Ofirmev Injection -) 1,000 mg IVPB Q6H PRN Last Admin: 11/29/16 11:05 Dose: 1,000 mg Albuterol/Ipratropium (Duoneb -) 1 amp NEB Q4H PRN PRN Reason: SHORTNESS OF BREATH Last Admin: 12/01/16 18:51 Dose: 1 amp Aspirin (Ecotrin -) 81 mg PO DAILY [facility] Last Admin: 12/01/16 11:19 Dose: 81 mg Atorvastatin Calcium (Lipitor -) 10 mg PO [facility] Last Admin: 12/01/16 21:09 Dose: 10 mg Budesonide/Formoterol Fumarate (Symbicort 160/4.5mcg -) 2 puff IH BID [facility] Last Admin: 12/01/16 21:10 Dose: 2 puff Divalproex Sodium (Depakote -) 250 mg PO TID [facility] Last Admin: 12/02/16 05:38 Dose: 250 mg Docusate Sodium (Colace -) 200 mg PO [facility] Last Admin: 12/01/16 21:08 Dose: 200 mg Heparin Sodium (Porcine) (Heparin -) 5,000 unit SQ BID [facility] Last Admin: 12/01/16 21:08 Dose: 5,000 unit Ampicillin Sodium 2 gm/ Sodium (Chloride) 100 mls @ 200 mls/hr IVPB Q6H-IV [facility] Last Admin: 12/02/16 02:06 Dose: 200 mls/hr Levothyroxine Sodium (Synthroid -) 125 mcg PO DAILY@0700 [facility] Last Admin: 12/02/16 06:11 Dose: 125 mcg Pantoprazole Sodium (Protonix -) 40 mg PO DAILY [facility] Last Admin: 12/01/16 11:20 Dose: 40 mg Polyethylene Glycol (Miralax (For Daily Use) -) 17 gm PO DAILY [facility] Last Admin: 12/01/16 10:00 Dose: 17 gm Senna (Senna -) 2 tab PO HS [facility] Last Admin: 12/01/16 21:09 Dose: 2 tab CBC, BMP 12/01/16 05:20 12/01/16 06:00 Microbiology 11/30/16 08:50 Sputum Culture - Preliminary Sputum - Expectorated NORMAL RESPIRATORY ARIN Physical Exam Constitutional: Yes: No Distress, Calm Cardiovascular: Yes: Regular Rate and Rhythm Respiratory: Yes: Diminished at bases Gastrointestinal: Yes: Normal Bowel Sounds, Soft, Abdomen, Obese. No: Distention, Tenderness Edema: No Problem List - Problems (1) Severe sepsis Code(s): A41.9 - SEPSIS, UNSPECIFIED ORGANISM R65.20 - SEVERE SEPSIS WITHOUT SEPTIC SHOCK (2) UTI (urinary tract infection) Code(s): N39.0 - URINARY TRACT INFECTION, SITE NOT SPECIFIED Qualifiers: Urinary tract infection type: site unspecified Hematuria presence: with hematuria Qualified Code(s): N39.0 - Urinary tract infection, site not specified (3) Cardiomyopathy Code(s): I42.9 - CARDIOMYOPATHY, UNSPECIFIED (4) HLD (hyperlipidemia) Code(s): E78.5 - HYPERLIPIDEMIA, UNSPECIFIED Qualifiers: Hyperlipidemia type: pure hypercholesterolemia Qualified Code(s): E78.0 - Pure hypercholesterolemia (5) HTN (hypertension) Code(s): I10 - ESSENTIAL (PRIMARY) HYPERTENSION Qualifiers: Hypertension type: essential hypertension Qualified Code(s): I10 - Essential (primary) hypertension (6) Hypothyroidism Code(s): E03.9 - HYPOTHYROIDISM, UNSPECIFIED Qualifiers: Hypothyroidism type: unspecified Qualified Code(s): E03.9 - Hypothyroidism, unspecified (7) Pneumonia Code(s): J18.9 - PNEUMONIA, UNSPECIFIED ORGANISM Qualifiers: Pneumonia type: due to unspecified organism Laterality: left Lung location: lower lobe of lung Qualified Code(s): J18.9 - Pneumonia, unspecified organism Assessment/Plan overall better IV antibiotics-- total 14 days Ampicillin off Dopamine drip -- BP maintained Heparin sc for DVT prophylaxis stable for transfer to the floor . F/u Labs
[2016-12-02 09:06] LABS: BASOPHIL 1.1 % (0-2.0); EOSINOPHIL 2.5 % (0-4.5); MCH 33.1 pg (25.7-33.7); MCHC 33.2 g/dl (32.0-36.0); MEAN CELL VOLUME 99.8 fl (80-96); MEAN PLT VOLUME 7.2 fl (7.5-11.1); NEUTROPHILS 67.5 % (42.8-82.8); PLATELET COUNT 255 K/MM3 (134-434); RDW 14.2 % (11.6-15.6); WHITE BLOOD COUNT 7.3 K/mm3 (4.0-10.0)
[2016-12-02] MEDS ORDERED: PT OWN MED DRAWER 7, Y5N ONE ×3 (09:22→20:27)
[2016-12-02] MEDS: ASPIRIN COATED 81 MG TABLET.EC PO SCH (09:24)
[2016-12-02] MEDS: PANTOPRAZOLE 40 MG TABLET (FP) PO SCH (09:24)
[2016-12-02] MEDS: HEPARIN NA (PORCINE) 5,000 UNITS/ML 1ML VIAL SQ SCH ×2 (09:24→23:14)
[2016-12-02 09:31] LABS: CALCIUM 8.7 mg/dL (8.5-10.1); CREATININE 0.5 mg/dL (0.55-1.02)
--- NOTE | 2016-12-02 09:47 | PN ---
Progress Note, Physician Chief Complaint: no acute distress TELE: NSR with VPCs - Current Medication List Current Medications: Active Medications Acetaminophen (Tylenol -) 650 mg PO Q6H PRN PRN Reason: FEVER OR PAIN Last Admin: 11/28/16 08:00 Dose: 650 mg Acetaminophen (Ofirmev Injection -) 1,000 mg IVPB Q6H PRN Last Admin: 11/29/16 11:05 Dose: 1,000 mg Albuterol/Ipratropium (Duoneb -) 1 amp NEB Q4H PRN PRN Reason: SHORTNESS OF BREATH Last Admin: 12/01/16 18:51 Dose: 1 amp Aspirin (Ecotrin -) 81 mg PO DAILY [facility] Last Admin: 12/02/16 09:24 Dose: 81 mg Atorvastatin Calcium (Lipitor -) 10 mg PO HS [facility] Last Admin: 12/01/16 21:09 Dose: 10 mg Budesonide/Formoterol Fumarate (Symbicort 160/4.5mcg -) 2 puff IH BID [facility] Last Admin: 12/01/16 21:10 Dose: 2 puff Divalproex Sodium (Depakote -) 250 mg PO TID [facility] Last Admin: 12/02/16 05:38 Dose: 250 mg Docusate Sodium (Colace -) 200 mg PO HS [facility] Last Admin: 12/01/16 21:08 Dose: 200 mg Heparin Sodium (Porcine) (Heparin -) 5,000 unit SQ BID [facility] Last Admin: 12/02/16 09:24 Dose: 5,000 unit Ampicillin Sodium 2 gm/ Sodium (Chloride) 100 mls @ 200 mls/hr IVPB Q6H-IV [facility] Last Admin: 12/02/16 09:23 Dose: 200 mls/hr Levothyroxine Sodium (Synthroid -) 125 mcg PO DAILY@0700 [facility] Last Admin: 12/02/16 06:11 Dose: 125 mcg Pantoprazole Sodium (Protonix -) 40 mg PO DAILY [facility] Last Admin: 12/02/16 09:24 Dose: 40 mg Polyethylene Glycol (Miralax (For Daily Use) -) 17 gm PO DAILY [facility] Last Admin: 12/01/16 10:00 Dose: 17 gm Senna (Senna -) 2 tab PO HS [facility] Last Admin: 12/01/16 21:09 Dose: 2 tab - Objective Vital Signs: Vital Signs Temperature 98.2 F 12/02/16 06:00 Pulse Rate 86 12/02/16 08:00 Respiratory Rate 29 H 12/02/16 08:00 Blood Pressure 121/79 12/02/16 08:00 O2 Sat by Pulse Oximetry (%) 95 12/01/16 21:00 Constitutional: Yes: No Distress Eyes: Yes: Conjunctiva Clear Cardiovascular: Yes: Regular Rate and Rhythm Respiratory: Yes: Other (decreased breath sounds at bases) Gastrointestinal: Yes: Soft, Abdomen, Obese Edema: Yes Edema: LLE: 1+, RLE: 1+ Labs: CBC, BMP 12/02/16 08:50 12/02/16 08:50 INR, PTT INR 1.15 (0.82-1.09) H 11/27/16 18:30 - ....Imaging Chest X-ray: Report Reviewed X-ray: Report Reviewed Assessment/Plan IMP: Urosepsis Cardiomyopathy with chronic systolic CHF (non-ischemic) PAF History of LV thrombus GI bleed on coumadin Esophageal Cancer REC: Urosepsis: -improving -receiving ABx Pafib -has remained in nsr -not on AC due to h/o GI bleed -cont ASA 81mg daily -has not required AV douglas blockers CHF-chronic systolic CHF -has not required diuresis, will monitor for need Elevated troponin -slightly elevated in setting of sepsis and chronic systolic CHF -unlikely ACS -cont ASA and statin
[2016-12-02] MEDS: POLYETHYLENE GLYCOL 3350 119 GM BTL PO SCH (10:58)
[2016-12-02] MEDS: BUDESONIDE/FORMETEROL FUMARATE 160/4.5 mcg INHALER IH SCH ×2 (10:58→23:14)
--- NOTE | 2016-12-02 11:38 | PN ---
Teaching Attending Note Name of Resident: Kalen Wei ATTENDING PHYSICIAN STATEMENT I saw and evaluated the patient. I reviewed the resident's note and discussed the case with the resident. I agree with the resident's findings and plan as documented. SUBJECTIVE: Patient seen and examined in the ICU. Remains off pressors. Denies shortness of breath or chest pain. Mildly confused. OBJECTIVE: Intake & Output 11/29/16 11/30/16 12/01/16 12/02/16 23:59 23:59 23:59 23:59 Intake Total 309.2 1766.8 1954 690 Output Total 600 3 Balance -290.8 1766.8 1951 690 Weight 203 lb 6.4 oz 203 lb 6.4 oz 200 lb 1.6 oz Last Vital Signs Temp Pulse Resp BP Pulse Ox 98.2 F 89 28 H 116/57 95 12/02/16 06:00 12/02/16 10:38 12/02/16 10:00 12/02/16 10:00 12/02/16 10:38 Active Medications Acetaminophen (Tylenol -) 650 mg PO Q6H PRN PRN Reason: FEVER OR PAIN Last Admin: 11/28/16 08:00 Dose: 650 mg Acetaminophen (Ofirmev Injection -) 1,000 mg IVPB Q6H PRN Last Admin: 11/29/16 11:05 Dose: 1,000 mg Albuterol/Ipratropium (Duoneb -) 1 amp NEB Q4H PRN PRN Reason: SHORTNESS OF BREATH Last Admin: 12/01/16 18:51 Dose: 1 amp Aspirin (Ecotrin -) 81 mg PO DAILY [facility] Last Admin: 12/02/16 09:24 Dose: 81 mg Atorvastatin Calcium (Lipitor -) 10 mg PO [facility] Last Admin: 12/01/16 21:09 Dose: 10 mg Budesonide/Formoterol Fumarate (Symbicort 160/4.5mcg -) 2 puff IH BID [facility] Last Admin: 12/02/16 10:58 Dose: 2 puff Divalproex Sodium (Depakote -) 250 mg PO TID [facility] Last Admin: 12/02/16 05:38 Dose: 250 mg Docusate Sodium (Colace -) 200 mg PO [facility] Last Admin: 12/01/16 21:08 Dose: 200 mg Heparin Sodium (Porcine) (Heparin -) 5,000 unit SQ BID [facility] Last Admin: 12/02/16 09:24 Dose: 5,000 unit Ampicillin Sodium 2 gm/ Sodium (Chloride) 100 mls @ 200 mls/hr IVPB Q6H-IV [facility] Last Admin: 12/02/16 09:23 Dose: 200 mls/hr Levothyroxine Sodium (Synthroid -) 125 mcg PO DAILY@0700 [facility] Last Admin: 12/02/16 06:11 Dose: 125 mcg Pantoprazole Sodium (Protonix -) 40 mg PO DAILY [facility] Last Admin: 12/02/16 09:24 Dose: 40 mg Polyethylene Glycol (Miralax (For Daily Use) -) 17 gm PO DAILY [facility] Last Admin: 12/02/16 10:58 Dose: 17 gm Senna (Senna -) 2 tab PO HS [facility] Last Admin: 12/01/16 21:09 Dose: 2 tab Gen: NAD, mildly confused Heart: RRR Lung: basilar rales Abd: soft, nontender Ext: + edema Laboratory Results - last 24 hr 12/02/16 12/02/16 08:50 08:50 WBC 7.3 RBC 3.29 L Hgb 10.9 Hct 32.9 MCV 99.8 H MCHC 33.2 RDW 14.2 Plt Count 255 D MPV 7.2 L Neutrophils % 67.5 Lymphocytes % 20.2 D Monocytes % 8.7 Eosinophils % 2.5 Basophils % 1.1 Sodium 142 Potassium 4.1 D Chloride 108 H Carbon Dioxide 29 Anion Gap 5 L BUN 6 L D Creatinine 0.5 L Random Glucose 119 H Calcium 8.7 Problem List - Problems (1) UTI (urinary tract infection) Code(s): N39.0 - URINARY TRACT INFECTION, SITE NOT SPECIFIED Qualifiers: Urinary tract infection type: site unspecified Hematuria presence: with hematuria Qualified Code(s): N39.0 - Urinary tract infection, site not specified (2) Bacteremia Code(s): R78.81 - BACTEREMIA (3) Septic shock Code(s): A41.9 - SEPSIS, UNSPECIFIED ORGANISM R65.21 - SEVERE SEPSIS WITH SEPTIC SHOCK (4) Acute on chronic systolic CHF (congestive heart failure), NYHA class 4 Code(s): I50.23 - ACUTE ON CHRONIC SYSTOLIC (CONGESTIVE) HEART FAILURE (5) HLD (hyperlipidemia) Code(s): E78.5 - HYPERLIPIDEMIA, UNSPECIFIED Qualifiers: Hyperlipidemia type: pure hypercholesterolemia Qualified Code(s): E78.0 - Pure hypercholesterolemia (6) HTN (hypertension) Code(s): I10 - ESSENTIAL (PRIMARY) HYPERTENSION Qualifiers: Hypertension type: essential hypertension Qualified Code(s): I10 - Essential (primary) hypertension (7) Hypothyroidism Code(s): E03.9 - HYPOTHYROIDISM, UNSPECIFIED Qualifiers: Hypothyroidism type: unspecified Qualified Code(s): E03.9 - Hypothyroidism, unspecified (8) Paroxysmal atrial fibrillation Code(s): I48.0 - PAROXYSMAL ATRIAL FIBRILLATION (9) Lactic acidosis Code(s): E87.2 - ACIDOSIS (10) Elevated troponin Code(s): R79.89 - OTHER SPECIFIED ABNORMAL FINDINGS OF BLOOD CHEMISTRY ASSESSMENT AND PLAN: Proteus UTI/Bacteremia Septic Shock resolving Lactic Acidosis resolved Acute on Chronic LV Systolic Heart Failure Impending Acute Hypoxic Respiratory Failure COPD Paroxysmal Atrial Fibrillation h/o LV thrombus - IV antibiotics per ID - O2 to keep SpO2 >90% - lasix as needed - inhaled bronchodilators - aspiration precautions - PO as tolerated - DVT/GI prophylaxis - Floor Dr Arellano CCTime 35"
--- NOTE | 2016-12-02 11:41 | PN ---
Physical Exam: SUBJECTIVE: Patient seen and examined at bedside. No overnight events. No new complaints. She feels well enough to go home. Denies CP, LEBRON, SOB, N/V. OBJECTIVE: Vital Signs Period Temp Pulse Resp BP Sys/Conner Pulse Ox Last 24 Hr 96.9 F-98.6 F 71-108 19-34 75-125/55-82 95-96 GENERAL: The patient is awake, alert, in no acute distress. HEAD: Normal with no signs of trauma. EYES: PERRL, extraocular movements intact, sclera anicteric, conjunctiva clear. No ptosis. ENT: moist mucous membranes. NECK: supple, No JVD. LUNGS: Bilateral scattered rales, minimal wheezing. HEART: Regular rate and rhythm, S1, S2 without murmur, rub or gallop. ABDOMEN: Soft, nontender, obese EXTREMITIES: 2+ pulses, warm, well-perfused, no edema. NEUROLOGICAL: Normal speech, gait not observed. PSYCH: Normal mood, normal affect. SKIN: Warm, dry, normal turgor, no rashes or lesions noted Laboratory Results - last 24 hr 12/02/16 12/02/16 08:50 08:50 WBC 7.3 RBC 3.29 L Hgb 10.9 Hct 32.9 MCV 99.8 H MCHC 33.2 RDW 14.2 Plt Count 255 D MPV 7.2 L Neutrophils % 67.5 Lymphocytes % 20.2 D Monocytes % 8.7 Eosinophils % 2.5 Basophils % 1.1 Sodium 142 Potassium 4.1 D Chloride 108 H Carbon Dioxide 29 Anion Gap 5 L BUN 6 L D Creatinine 0.5 L Random Glucose 119 H Calcium 8.7 Active Medications Generic Name Dose Route Start Last Admin Trade Name Freq PRN Reason Stop Dose Admin Acetaminophen 650 mg 11/27/16 20:59 11/28/16 08:00 Tylenol - PO 650 mg Q6H PRN Administration FEVER OR PAIN Acetaminophen 1,000 mg 11/28/16 14:10 11/29/16 11:05 Ofirmev Injection - IVPB 1,000 mg Q6H PRN Administration Albuterol/Ipratropium 1 amp 11/29/16 10:44 12/01/16 18:51 Duoneb - NEB 1 amp Q4H PRN Administration SHORTNESS OF BREATH Aspirin 81 mg 11/28/16 10:00 12/02/16 09:24 Ecotrin - PO 81 mg DAILY GELACIO Administration Atorvastatin Calcium 10 mg 11/27/16 22:00 12/01/16 21:09 Lipitor - PO 10 mg HS GELACIO Administration Budesonide/Formoterol Fumarate 2 puff 11/28/16 22:00 12/02/16 10:58 Symbicort 160/4.5mcg - IH 2 puff BID GELACIO Administration Divalproex Sodium 250 mg 11/28/16 14:00 12/02/16 05:38 Depakote - PO 250 mg TID GELACIO Administration Docusate Sodium 200 mg 11/27/16 22:00 12/01/16 21:08 Colace - PO 200 mg HS GELACIO Administration Heparin Sodium (Porcine) 5,000 unit 11/28/16 22:00 12/02/16 09:24 Heparin - SQ 5,000 unit BID GELACIO Administration Ampicillin Sodium 2 gm/ Sodium 100 mls @ 200 mls/hr 11/30/16 09:00 12/02/16 09: 23 Chloride IVPB 200 mls/hr Q6H-IV GELACIO Administration Levothyroxine Sodium 125 mcg 11/28/16 07:00 12/02/16 06:11 Synthroid - PO 125 mcg DAILY@0700 GELACIO Administration Pantoprazole Sodium 40 mg 11/28/16 10:00 12/02/16 09:24 Protonix - PO 40 mg DAILY GELACIO Administration Polyethylene Glycol 17 gm 11/28/16 10:00 12/02/16 10:58 Miralax (For Daily Use) - PO 17 gm DAILY GELACIO Administration Senna 2 tab 11/27/16 22:00 12/01/16 21:09 Senna - PO 2 tab HS GELACIO Administration ASSESSMENT/PLAN: 76y F from [facility] -- GERD, esophageal ca, copd, hypothyroidism, constipation , HL, psych d/o admitted for sepsis 2/2 UTI transferred to ICU for management of hemodynamics on Dopamine drip. Neuro: Mental status back to baseline. Will continue to monitor for acute changes. Monitor Pulmonary: BiPaP as needed to assist in work of breathing. Duonebs Q4 PRN Aspiration precautions. Repeat CXR Cardiovascular: Will wean of the Dopamine. PAF- Currently in NSR; no AC due to h/o GI bleed. CHF systolic-Dr. Salcido cardiology recommends- no active diureses while active infection. ID: Sepsis 2/2 Proteus UTI. WBC trending down Continue- Amoxicillin monotherapy based off sensitivities. Lactic Acid WNL ID consult appreciated. Renal: Kidney function has improved and remained stable Kidney US today was negative for stones. Avoid nephrotoxins. F/E/N: No IVF at this time given h/o CHF and requiring pressor support. Electrolytes WNL - will repeat labs in AM Regular diet. Dispo: Can be transferred to floors as soon as bed available. Visit type - Emergency Visit Emergency Visit: Yes ED Registration Date: 11/27/16 Care time: The patient presented to the Emergency Department on the above date and was hospitalized for further evaluation of their emergent condition. - New Patient This patient is new to me today: No - Critical Care Critical Care patient: Yes Total Critical Care Time (in minutes): 32 Critical Care Statement: The care of this patient involved high complexity decision making to prevent further life threatening deterioration of the patient 's condition and/or to evalute & treat vital organ system(s) failure or risk of failure.
[2016-12-02] MEDS: ALBUTEROL SO4 2.5/IPRATROPIUM 0.5 INH SOL 3 ML VIAL.NEB. NEB PRN (22:25)
[2016-12-02] MEDS: DOCUSATE SODIUM 100 MG CAPSULE (FP) PO SCH (23:13)
[2016-12-02] MEDS: ATORVASTATIN CA 10 MG TABLET (FP) PO SCH (23:14)
[2016-12-02] MEDS: SENNOSIDES 8.6MG TABLET (FP) PO SCH (23:14)
[2016-12-03] MEDS: AMPICILLIN - 2 GM in SODIUM CHLORIDE 100 ML IVPB SCH ×4 (03:00→21:46)
[2016-12-03] MEDS: ALBUTEROL SO4 2.5/IPRATROPIUM 0.5 INH SOL 3 ML VIAL.NEB. NEB PRN (06:00)
[2016-12-03] MEDS: DIVALPROEX SODIUM 250 MG TABLET E.C. (FP) PO SCH ×3 (06:23→21:46)
[2016-12-03] MEDS: LEVOTHYROXINE NA 125 MCG TABLET (FP) PO SCH (06:24)
[2016-12-03 07:41] LABS: BASOPHIL 0.6 % (0-2.0); EOSINOPHIL 1.7 % (0-4.5); MCH 33.7 pg (25.7-33.7); MCHC 33.4 g/dl (32.0-36.0); MEAN CELL VOLUME 100.8 fl (80-96); MEAN PLT VOLUME 7.5 fl (7.5-11.1); NEUTROPHILS 70.7 % (42.8-82.8); PLATELET COUNT 257 K/MM3 (134-434); RDW 14.5 % (11.6-15.6); WHITE BLOOD COUNT 8.3 K/mm3 (4.0-10.0)
[2016-12-03 08:01] LABS: ALBUMIN 2.6 g/dl (3.4-5.0)
[2016-12-03 08:07] LABS: ALK PHOS 68 U/L (45-117); ANION GAP 6 (8-16); BILIRUBIN,TOTAL 0.4 mg/dL (0.2-1.0); CALCIUM 8.8 mg/dL (8.5-10.1); CO2 27 mmol/L (21-32); CREATININE 0.5 mg/dL (0.55-1.02); GLUCOSE,RANDOM 106 mg/dL (74-106); SGOT/AST 16 U/L (15-37); SGPT/ALT 22 U/L (12-78); TOT PROT 5.7 g/dl (6.4-8.2)
[2016-12-03] MEDS ORDERED: PT OWN MED DRAWER 7, Y5N ONE ×3 (09:01→17:09)
[2016-12-03] MEDS: HEPARIN NA (PORCINE) 5,000 UNITS/ML 1ML VIAL SQ SCH ×2 (09:42→21:46)
[2016-12-03] MEDS: PANTOPRAZOLE 40 MG TABLET (FP) PO SCH (09:43)
[2016-12-03] MEDS: BUDESONIDE/FORMETEROL FUMARATE 160/4.5 mcg INHALER IH SCH ×2 (09:43→21:47)
[2016-12-03] MEDS: ASPIRIN COATED 81 MG TABLET.EC PO SCH (09:43)
[2016-12-03] MEDS: POLYETHYLENE GLYCOL 3350 119 GM BTL PO SCH (09:44)
--- NOTE | 2016-12-03 10:19 | PN ---
Progress Note, Physician - Current Medication List Current Medications: Active Medications Acetaminophen (Tylenol -) 650 mg PO Q6H PRN PRN Reason: FEVER OR PAIN Last Admin: 11/28/16 08:00 Dose: 650 mg Acetaminophen (Ofirmev Injection -) 1,000 mg IVPB Q6H PRN Last Admin: 11/29/16 11:05 Dose: 1,000 mg Albuterol/Ipratropium (Duoneb -) 1 amp NEB Q4H PRN PRN Reason: SHORTNESS OF BREATH Last Admin: 12/03/16 06:00 Dose: 1 amp Aspirin (Ecotrin -) 81 mg PO DAILY [facility] Last Admin: 12/03/16 09:43 Dose: 81 mg Atorvastatin Calcium (Lipitor -) 10 mg PO HS [facility] Last Admin: 12/02/16 23:14 Dose: 10 mg Budesonide/Formoterol Fumarate (Symbicort 160/4.5mcg -) 2 puff IH BID [facility] Last Admin: 12/03/16 09:43 Dose: 2 puff Divalproex Sodium (Depakote -) 250 mg PO TID [facility] Last Admin: 12/03/16 06:23 Dose: 250 mg Docusate Sodium (Colace -) 200 mg PO HS [facility] Last Admin: 12/02/16 23:13 Dose: 200 mg Heparin Sodium (Porcine) (Heparin -) 5,000 unit SQ BID [facility] Last Admin: 12/03/16 09:42 Dose: 5,000 unit Ampicillin Sodium 2 gm/ Sodium (Chloride) 100 mls @ 200 mls/hr IVPB Q6H-IV [facility] Last Admin: 12/03/16 09:41 Dose: 200 mls/hr Levothyroxine Sodium (Synthroid -) 125 mcg PO DAILY@0700 [facility] Last Admin: 12/03/16 06:24 Dose: 125 mcg Pantoprazole Sodium (Protonix -) 40 mg PO DAILY [facility] Last Admin: 12/03/16 09:43 Dose: 40 mg Polyethylene Glycol (Miralax (For Daily Use) -) 17 gm PO DAILY [facility] Last Admin: 12/03/16 09:44 Dose: 17 gm Senna (Senna -) 2 tab PO HS [facility] Last Admin: 12/02/16 23:14 Dose: 2 tab - Objective Vital Signs: Vital Signs Temperature 98.8 F 12/03/16 06:04 Pulse Rate 82 01/07/17 06:04 Respiratory Rate 20 12/03/16 06:04 Blood Pressure 127/68 12/03/16 06:04 O2 Sat by Pulse Oximetry (%) 98 12/02/16 21:30 Eyes: Yes: WNL, Conjunctiva Clear, EOM Intact HENT: Yes: WNL, Atraumatic, Normocephalic Neck: Yes: WNL, Supple, Trachea Midline Cardiovascular: Yes: WNL, Regular Rate and Rhythm Respiratory: Yes: WNL, Regular, CTA Bilaterally Gastrointestinal: Yes: WNL, Normal Bowel Sounds Genitourinary: Yes: WNL Musculoskeletal: Yes: WNL Extremities: Yes: WNL Edema: No Integumentary: Yes: WNL Neurological: Yes: WNL, Alert, Oriented ...Motor Strength: WNL Psychiatric: Yes: WNL Labs: CBC, BMP 12/03/16 06:00 12/03/16 06:00 INR, PTT INR 1.15 (0.82-1.09) H 11/27/16 18:30 Assessment/Plan Urosepsis Cardiomyopathy with chronic systolic CHF (non-ischemic) PAF History of LV thrombus GI bleed on coumadin Esophageal Cancer REC: Urosepsis: -improving -receiving ABx Pafib -has remained in nsr -not on AC due to h/o GI bleed -cont ASA 81mg daily -has not required AV douglas blockers CHF-chronic systolic CHF -has not required diuresis, will monitor for need Elevated troponin -slightly elevated in setting of sepsis and chronic systolic CHF -unlikely ACS -cont ASA and statin
--- NOTE | 2016-12-03 12:22 | PN ---
Progress Note (short form) - Note Progress Note: PULMONARY Required BiPAP overnight. Now on nasal cannula. Confused but able to reorient. Last Vital Signs Temp Pulse Resp BP Pulse Ox 98.4 F 80 18 121/61 98 12/03/16 10:00 12/03/16 10:00 12/03/16 10:00 12/03/16 10:00 12/02/16 21:30 Intake & Output 11/30/16 12/01/16 12/02/16 12/03/16 23:59 23:59 23:59 23:59 Intake Total 1766.8 1954 1020 100 Output Total 3 Balance 1766.8 1951 1020 100 Weight 203 lb 6.4 oz 203 lb 6.4 oz 200 lb 1.6 oz Gen: mildly tachypneic at rest Heart: RRR Lung: bilateral rhonchi Abd: soft, nontender Ext: no edema CBC, BMP 12/03/16 06:00 12/03/16 06:00 Active Medications Acetaminophen (Tylenol -) 650 mg PO Q6H PRN PRN Reason: FEVER OR PAIN Last Admin: 11/28/16 08:00 Dose: 650 mg Acetaminophen (Ofirmev Injection -) 1,000 mg IVPB Q6H PRN Last Admin: 11/29/16 11:05 Dose: 1,000 mg Albuterol/Ipratropium (Duoneb -) 1 amp NEB Q4H PRN PRN Reason: SHORTNESS OF BREATH Last Admin: 12/03/16 06:00 Dose: 1 amp Aspirin (Ecotrin -) 81 mg PO DAILY [facility] Last Admin: 12/03/16 09:43 Dose: 81 mg Atorvastatin Calcium (Lipitor -) 10 mg PO [facility] Last Admin: 12/02/16 23:14 Dose: 10 mg Budesonide/Formoterol Fumarate (Symbicort 160/4.5mcg -) 2 puff IH BID [facility] Last Admin: 12/03/16 09:43 Dose: 2 puff Divalproex Sodium (Depakote -) 250 mg PO TID [facility] Last Admin: 12/03/16 06:23 Dose: 250 mg Docusate Sodium (Colace -) 200 mg PO [facility] Last Admin: 12/02/16 23:13 Dose: 200 mg Heparin Sodium (Porcine) (Heparin -) 5,000 unit SQ BID [facility] Last Admin: 12/03/16 09:42 Dose: 5,000 unit Ampicillin Sodium 2 gm/ Sodium (Chloride) 100 mls @ 200 mls/hr IVPB Q6H-IV [facility] Last Admin: 12/03/16 09:41 Dose: 200 mls/hr Levothyroxine Sodium (Synthroid -) 125 mcg PO DAILY@0700 [facility] Last Admin: 12/03/16 06:24 Dose: 125 mcg Pantoprazole Sodium (Protonix -) 40 mg PO DAILY [facility] Last Admin: 12/03/16 09:43 Dose: 40 mg Polyethylene Glycol (Miralax (For Daily Use) -) 17 gm PO DAILY [facility] Last Admin: 12/03/16 09:44 Dose: 17 gm Senna (Senna -) 2 tab PO HS [facility] Last Admin: 12/02/16 23:14 Dose: 2 tab A/P Proteus UTI/Bacteremia Septic Shock resolved Lactic Acidosis resolved Acute on Chronic LV Systolic Heart Failure Impending Acute Hypoxic Respiratory Failure COPD Paroxysmal Atrial Fibrillation h/o LV thrombus - continue antibiotics - O2 to keep SpO2 >90% - BiPAP as needed to assist in work of breathing - lasix as needed - inhaled bronchodilators - aspiration precautions - PO as tolerated - DVT/GI prophylaxis Problem List - Problems (1) UTI (urinary tract infection) Code(s): N39.0 - URINARY TRACT INFECTION, SITE NOT SPECIFIED Qualifiers: Urinary tract infection type: site unspecified Hematuria presence: with hematuria Qualified Code(s): N39.0 - Urinary tract infection, site not specified (2) Bacteremia Code(s): R78.81 - BACTEREMIA (3) Septic shock Code(s): A41.9 - SEPSIS, UNSPECIFIED ORGANISM R65.21 - SEVERE SEPSIS WITH SEPTIC SHOCK (4) Acute on chronic systolic CHF (congestive heart failure), NYHA class 4 Code(s): I50.23 - ACUTE ON CHRONIC SYSTOLIC (CONGESTIVE) HEART FAILURE (5) HLD (hyperlipidemia) Code(s): E78.5 - HYPERLIPIDEMIA, UNSPECIFIED Qualifiers: Hyperlipidemia type: pure hypercholesterolemia Qualified Code(s): E78.0 - Pure hypercholesterolemia (6) HTN (hypertension) Code(s): I10 - ESSENTIAL (PRIMARY) HYPERTENSION Qualifiers: Hypertension type: essential hypertension Qualified Code(s): I10 - Essential (primary) hypertension (7) Hypothyroidism Code(s): E03.9 - HYPOTHYROIDISM, UNSPECIFIED Qualifiers: Hypothyroidism type: unspecified Qualified Code(s): E03.9 - Hypothyroidism, unspecified (8) Paroxysmal atrial fibrillation Code(s): I48.0 - PAROXYSMAL ATRIAL FIBRILLATION (9) Lactic acidosis Code(s): E87.2 - ACIDOSIS (10) Elevated troponin Code(s): R79.89 - OTHER SPECIFIED ABNORMAL FINDINGS OF BLOOD CHEMISTRY
--- NOTE | 2016-12-03 12:39 | PN ---
Progress Note, Physician Chief Complaint: had BIPAP at night gets confused and agitated Awake now no complaints No chest pain No SOB, feels comfortable - Current Medication List Current Medications: Active Medications Acetaminophen (Tylenol -) 650 mg PO Q6H PRN PRN Reason: FEVER OR PAIN Last Admin: 11/28/16 08:00 Dose: 650 mg Acetaminophen (Ofirmev Injection -) 1,000 mg IVPB Q6H PRN Last Admin: 11/29/16 11:05 Dose: 1,000 mg Albuterol/Ipratropium (Duoneb -) 1 amp NEB Q4H PRN PRN Reason: SHORTNESS OF BREATH Last Admin: 12/03/16 06:00 Dose: 1 amp Aspirin (Ecotrin -) 81 mg PO DAILY [facility] Last Admin: 12/03/16 09:43 Dose: 81 mg Atorvastatin Calcium (Lipitor -) 10 mg PO [facility] Last Admin: 12/02/16 23:14 Dose: 10 mg Budesonide/Formoterol Fumarate (Symbicort 160/4.5mcg -) 2 puff IH BID [facility] Last Admin: 12/03/16 09:43 Dose: 2 puff Divalproex Sodium (Depakote -) 250 mg PO TID [facility] Last Admin: 12/03/16 06:23 Dose: 250 mg Docusate Sodium (Colace -) 200 mg PO [facility] Last Admin: 12/02/16 23:13 Dose: 200 mg Heparin Sodium (Porcine) (Heparin -) 5,000 unit SQ BID [facility] Last Admin: 12/03/16 09:42 Dose: 5,000 unit Ampicillin Sodium 2 gm/ Sodium (Chloride) 100 mls @ 200 mls/hr IVPB Q6H-IV [facility] Last Admin: 12/03/16 09:41 Dose: 200 mls/hr Levothyroxine Sodium (Synthroid -) 125 mcg PO DAILY@0700 [facility] Last Admin: 12/03/16 06:24 Dose: 125 mcg Pantoprazole Sodium (Protonix -) 40 mg PO DAILY [facility] Last Admin: 12/03/16 09:43 Dose: 40 mg Polyethylene Glycol (Miralax (For Daily Use) -) 17 gm PO DAILY [facility] Last Admin: 12/03/16 09:44 Dose: 17 gm Senna (Senna -) 2 tab PO [facility] Last Admin: 12/02/16 23:14 Dose: 2 tab - Objective Vital Signs: Vital Signs Temperature 98.4 F 12/03/16 10:00 Pulse Rate 80 12/03/16 10:00 Respiratory Rate 18 12/03/16 10:00 Blood Pressure 121/61 12/03/16 10:00 O2 Sat by Pulse Oximetry (%) 98 12/02/16 21:30 Constitutional: Yes: No Distress Cardiovascular: Yes: Regular Rate and Rhythm Respiratory: Yes: Diminished Gastrointestinal: Yes: Normal Bowel Sounds, Soft. No: Tenderness Edema: No Labs: CBC, BMP 12/03/16 06:00 12/03/16 06:00 INR, PTT INR 1.15 (0.82-1.09) H 11/27/16 18:30 Problem List - Problems (1) Severe sepsis Code(s): A41.9 - SEPSIS, UNSPECIFIED ORGANISM R65.20 - SEVERE SEPSIS WITHOUT SEPTIC SHOCK (2) UTI (urinary tract infection) Code(s): N39.0 - URINARY TRACT INFECTION, SITE NOT SPECIFIED Qualifiers: Urinary tract infection type: site unspecified Hematuria presence: with hematuria Qualified Code(s): N39.0 - Urinary tract infection, site not specified (3) Cardiomyopathy Code(s): I42.9 - CARDIOMYOPATHY, UNSPECIFIED (4) HLD (hyperlipidemia) Code(s): E78.5 - HYPERLIPIDEMIA, UNSPECIFIED Qualifiers: Hyperlipidemia type: pure hypercholesterolemia Qualified Code(s): E78.0 - Pure hypercholesterolemia (5) HTN (hypertension) Code(s): I10 - ESSENTIAL (PRIMARY) HYPERTENSION Qualifiers: Hypertension type: essential hypertension Qualified Code(s): I10 - Essential (primary) hypertension (6) Hypothyroidism Code(s): E03.9 - HYPOTHYROIDISM, UNSPECIFIED Qualifiers: Hypothyroidism type: unspecified Qualified Code(s): E03.9 - Hypothyroidism, unspecified (7) Pneumonia Code(s): J18.9 - PNEUMONIA, UNSPECIFIED ORGANISM Qualifiers: Pneumonia type: due to unspecified organism Laterality: left Lung location: lower lobe of lung Qualified Code(s): J18.9 - Pneumonia, unspecified organism Assessment/Plan PLAN IV antibiotics-- total 14 days Ampicillin On BIPAP PRN Add Seroquel for agitation continue with meds Renal sono-- normal kidneys , no stones Heparin sc for DVT prophylaxis
[2016-12-03] MEDS ORDERED: QUEtiapine FUMARATE 25 MG TABLET (FP) PO SCH (12:45)
[2016-12-03] MEDS: ATORVASTATIN CA 10 MG TABLET (FP) PO SCH (21:46)
[2016-12-03] MEDS: DOCUSATE SODIUM 100 MG CAPSULE (FP) PO SCH (21:46)
[2016-12-03] MEDS: SENNOSIDES 8.6MG TABLET (FP) PO SCH (21:46)
[2016-12-04] MEDS: AMPICILLIN - 2 GM in SODIUM CHLORIDE 100 ML IVPB SCH ×4 (03:00→21:16)
[2016-12-04] MEDS: ALBUTEROL SO4 2.5/IPRATROPIUM 0.5 INH SOL 3 ML VIAL.NEB. NEB PRN ×3 (03:42→20:24)
[2016-12-04] MEDS: LEVOTHYROXINE NA 125 MCG TABLET (FP) PO SCH (06:53)
[2016-12-04] MEDS: DIVALPROEX SODIUM 250 MG TABLET E.C. (FP) PO SCH ×3 (06:53→22:14)
[2016-12-04] MEDS ORDERED: PT OWN MED DRAWER 7, Y5N ONE ×3 (08:57→17:56)
--- NOTE | 2016-12-04 10:06 | PN ---
Progress Note, Physician - Current Medication List Current Medications: Active Medications Acetaminophen (Tylenol -) 650 mg PO Q6H PRN PRN Reason: FEVER OR PAIN Last Admin: 11/28/16 08:00 Dose: 650 mg Acetaminophen (Ofirmev Injection -) 1,000 mg IVPB Q6H PRN Last Admin: 11/29/16 11:05 Dose: 1,000 mg Albuterol/Ipratropium (Duoneb -) 1 amp NEB Q4H PRN PRN Reason: SHORTNESS OF BREATH Last Admin: 12/04/16 03:42 Dose: 1 amp Aspirin (Ecotrin -) 81 mg PO DAILY [facility] Last Admin: 12/03/16 09:43 Dose: 81 mg Atorvastatin Calcium (Lipitor -) 10 mg PO HS [facility] Last Admin: 12/03/16 21:46 Dose: 10 mg Budesonide/Formoterol Fumarate (Symbicort 160/4.5mcg -) 2 puff IH BID [facility] Last Admin: 12/03/16 21:47 Dose: 2 puff Divalproex Sodium (Depakote -) 250 mg PO TID [facility] Last Admin: 12/04/16 06:53 Dose: 250 mg Docusate Sodium (Colace -) 200 mg PO HS [facility] Last Admin: 12/03/16 21:46 Dose: 200 mg Heparin Sodium (Porcine) (Heparin -) 5,000 unit SQ BID [facility] Last Admin: 12/03/16 21:46 Dose: 5,000 unit Ampicillin Sodium 2 gm/ Sodium (Chloride) 100 mls @ 200 mls/hr IVPB Q6H-IV [facility] Last Admin: 12/04/16 03:00 Dose: 200 mls/hr Levothyroxine Sodium (Synthroid -) 125 mcg PO DAILY@0700 [facility] Last Admin: 12/04/16 06:53 Dose: 125 mcg Pantoprazole Sodium (Protonix -) 40 mg PO DAILY [facility] Last Admin: 12/03/16 09:43 Dose: 40 mg Polyethylene Glycol (Miralax (For Daily Use) -) 17 gm PO DAILY [facility] Last Admin: 12/03/16 09:44 Dose: 17 gm Quetiapine Fumarate (Seroquel -) 12.5 mg PO DAILY [facility] Last Admin: 12/03/16 13:38 Dose: 12.5 mg Senna (Senna -) 2 tab PO [facility] Last Admin: 12/03/16 21:46 Dose: 2 tab - Objective Vital Signs: Vital Signs Temperature 97.5 F L 12/04/16 08:07 Pulse Rate 77 12/04/16 08:07 Respiratory Rate 20 12/04/16 08:07 Blood Pressure 133/68 12/04/16 08:07 O2 Sat by Pulse Oximetry (%) 98 12/03/16 21:00 Eyes: Yes: WNL, Conjunctiva Clear, EOM Intact HENT: Yes: WNL, Atraumatic, Normocephalic Neck: Yes: WNL, Supple, Trachea Midline Cardiovascular: Yes: WNL, Regular Rate and Rhythm Respiratory: Yes: WNL, Regular, CTA Bilaterally Gastrointestinal: Yes: WNL, Normal Bowel Sounds Genitourinary: Yes: WNL Musculoskeletal: Yes: WNL Extremities: Yes: WNL Edema: No Integumentary: Yes: WNL Neurological: Yes: WNL, Alert, Oriented ...Motor Strength: WNL Psychiatric: Yes: WNL Labs: CBC, BMP 12/03/16 06:00 12/03/16 06:00 INR, PTT INR 1.15 (0.82-1.09) H 11/27/16 18:30 Assessment/Plan Urosepsis Cardiomyopathy with chronic systolic CHF (non-ischemic) PAF History of LV thrombus GI bleed on coumadin Esophageal Cancer REC: Urosepsis: -improving -receiving ABx Pafib -has remained in nsr -not on AC due to h/o GI bleed -cont ASA 81mg daily -has not required AV douglas blockers CHF-chronic systolic CHF -has not required diuresis, will monitor for need Elevated troponin -slightly elevated in setting of sepsis and chronic systolic CHF -unlikely ACS -cont ASA and statin
[2016-12-04] MEDS: ASPIRIN COATED 81 MG TABLET.EC PO SCH (10:26)
[2016-12-04] MEDS: HEPARIN NA (PORCINE) 5,000 UNITS/ML 1ML VIAL SQ SCH ×2 (10:26→21:16)
[2016-12-04] MEDS: PANTOPRAZOLE 40 MG TABLET (FP) PO SCH (10:26)
[2016-12-04] MEDS: BUDESONIDE/FORMETEROL FUMARATE 160/4.5 mcg INHALER IH SCH ×2 (10:27→22:17)
[2016-12-04] MEDS: POLYETHYLENE GLYCOL 3350 119 GM BTL PO SCH (10:27)
[2016-12-04] MEDS: ALPRAZolam 0.25 MG TABLET PO PRN ×2 (12:44→21:15)
[2016-12-04] MEDS ORDERED: FUROSEMIDE 40 MG/4 ML INJECTABLE VIAL IVPUSH ONE (13:00)
--- NOTE | 2016-12-04 13:04 | PN ---
Progress Note (short form) - Note Progress Note: PULMONARY Feels short of breath on nasal cannula. Confused but able to reorient. Last Vital Signs Temp Pulse Resp BP Pulse Ox 97.5 F L 116 H 20 133/68 94 L 12/04/16 08:07 12/04/16 10:10 12/04/16 08:07 12/04/16 08:07 12/04/16 10:10 Intake & Output 12/01/16 12/02/16 12/03/16 12/04/16 23:59 23:59 23:59 23:59 Intake Total 1954 1020 750 200 Output Total 3 Balance 1951 1020 750 200 Weight 203 lb 6.4 oz 200 lb 1.6 oz 197 lb Gen: mildly tachypneic at rest with abdominal breathing Heart: tachycardic, regular Lung: bilateral rhonchi Abd: soft, nontender Ext: no edema CBC, BMP 12/03/16 06:00 12/03/16 06:00 Active Medications Acetaminophen (Tylenol -) 650 mg PO Q6H PRN PRN Reason: FEVER OR PAIN Last Admin: 11/28/16 08:00 Dose: 650 mg Acetaminophen (Ofirmev Injection -) 1,000 mg IVPB Q6H PRN Last Admin: 11/29/16 11:05 Dose: 1,000 mg Albuterol/Ipratropium (Duoneb -) 1 amp NEB Q4H PRN PRN Reason: SHORTNESS OF BREATH Last Admin: 12/04/16 10:10 Dose: 1 amp Alprazolam (Xanax -) 0.25 mg PO Q6H PRN PRN Reason: ANXIETY Last Admin: 12/04/16 12:44 Dose: 0.25 mg Aspirin (Ecotrin -) 81 mg PO DAILY [facility] Last Admin: 12/04/16 10:26 Dose: 81 mg Atorvastatin Calcium (Lipitor -) 10 mg PO HS [facility] Last Admin: 12/03/16 21:46 Dose: 10 mg Budesonide/Formoterol Fumarate (Symbicort 160/4.5mcg -) 2 puff IH BID [facility] Last Admin: 12/04/16 10:27 Dose: 2 puff Divalproex Sodium (Depakote -) 250 mg PO TID [facility] Last Admin: 12/04/16 06:53 Dose: 250 mg Docusate Sodium (Colace -) 200 mg PO HS [facility] Last Admin: 12/03/16 21:46 Dose: 200 mg Heparin Sodium (Porcine) (Heparin -) 5,000 unit SQ BID [facility] Last Admin: 12/04/16 10:26 Dose: 5,000 unit Ampicillin Sodium 2 gm/ Sodium (Chloride) 100 mls @ 200 mls/hr IVPB Q6H-IV [facility] Last Admin: 12/04/16 10:25 Dose: 200 mls/hr Levothyroxine Sodium (Synthroid -) 125 mcg PO DAILY@0700 [facility] Last Admin: 12/04/16 06:53 Dose: 125 mcg Memantine (Namenda -) 5 mg PO BID [facility] Pantoprazole Sodium (Protonix -) 40 mg PO DAILY [facility] Last Admin: 12/04/16 10:26 Dose: 40 mg Polyethylene Glycol (Miralax (For Daily Use) -) 17 gm PO DAILY [facility] Last Admin: 12/04/16 10:27 Dose: 17 gm Quetiapine Fumarate (Seroquel -) 12.5 mg PO BID [facility] Senna (Senna -) 2 tab PO [facility] Last Admin: 12/03/16 21:46 Dose: 2 tab A/P Proteus UTI/Bacteremia Septic Shock resolved Lactic Acidosis resolved Acute on Chronic LV Systolic Heart Failure Impending Acute Hypoxic Respiratory Failure COPD Paroxysmal Atrial Fibrillation h/o LV thrombus - repeat CXR today - will dose lasix - place back on BiPAP - EKG, transfer to telemetry - continue antibiotics - O2 to keep SpO2 >90% - inhaled bronchodilators - aspiration precautions - PO as tolerated - DVT/GI prophylaxis Problem List - Problems (1) UTI (urinary tract infection) Code(s): N39.0 - URINARY TRACT INFECTION, SITE NOT SPECIFIED Qualifiers: Urinary tract infection type: site unspecified Hematuria presence: with hematuria Qualified Code(s): N39.0 - Urinary tract infection, site not specified (2) Bacteremia Code(s): R78.81 - BACTEREMIA (3) Septic shock Code(s): A41.9 - SEPSIS, UNSPECIFIED ORGANISM R65.21 - SEVERE SEPSIS WITH SEPTIC SHOCK (4) Acute on chronic systolic CHF (congestive heart failure), NYHA class 4 Code(s): I50.23 - ACUTE ON CHRONIC SYSTOLIC (CONGESTIVE) HEART FAILURE (5) HLD (hyperlipidemia) Code(s): E78.5 - HYPERLIPIDEMIA, UNSPECIFIED Qualifiers: Hyperlipidemia type: pure hypercholesterolemia Qualified Code(s): E78.0 - Pure hypercholesterolemia (6) HTN (hypertension) Code(s): I10 - ESSENTIAL (PRIMARY) HYPERTENSION Qualifiers: Hypertension type: essential hypertension Qualified Code(s): I10 - Essential (primary) hypertension (7) Hypothyroidism Code(s): E03.9 - HYPOTHYROIDISM, UNSPECIFIED Qualifiers: Hypothyroidism type: unspecified Qualified Code(s): E03.9 - Hypothyroidism, unspecified (8) Paroxysmal atrial fibrillation Code(s): I48.0 - PAROXYSMAL ATRIAL FIBRILLATION (9) Lactic acidosis Code(s): E87.2 - ACIDOSIS (10) Elevated troponin Code(s): R79.89 - OTHER SPECIFIED ABNORMAL FINDINGS OF BLOOD CHEMISTRY
--- NOTE | 2016-12-04 17:17 | PN ---
Progress Note, Physician Chief Complaint: Pt examined this AM She was anxious this AM Now tachycardic spoke to daughter - Current Medication List Current Medications: Active Medications Acetaminophen (Tylenol -) 650 mg PO Q6H PRN PRN Reason: FEVER OR PAIN Last Admin: 11/28/16 08:00 Dose: 650 mg Acetaminophen (Ofirmev Injection -) 1,000 mg IVPB Q6H PRN Last Admin: 11/29/16 11:05 Dose: 1,000 mg Albuterol/Ipratropium (Duoneb -) 1 amp NEB Q4H PRN PRN Reason: SHORTNESS OF BREATH Last Admin: 12/04/16 10:10 Dose: 1 amp Alprazolam (Xanax -) 0.25 mg PO Q6H PRN PRN Reason: ANXIETY Last Admin: 12/04/16 12:44 Dose: 0.25 mg Aspirin (Ecotrin -) 81 mg PO DAILY [facility] Last Admin: 12/04/16 10:26 Dose: 81 mg Atorvastatin Calcium (Lipitor -) 10 mg PO HS [facility] Last Admin: 12/03/16 21:46 Dose: 10 mg Budesonide/Formoterol Fumarate (Symbicort 160/4.5mcg -) 2 puff IH BID [facility] Last Admin: 12/04/16 10:27 Dose: 2 puff Divalproex Sodium (Depakote -) 250 mg PO TID [facility] Last Admin: 12/04/16 14:28 Dose: 250 mg Docusate Sodium (Colace -) 200 mg PO HS [facility] Last Admin: 12/03/16 21:46 Dose: 200 mg Heparin Sodium (Porcine) (Heparin -) 5,000 unit SQ BID [facility] Last Admin: 12/04/16 10:26 Dose: 5,000 unit Ampicillin Sodium 2 gm/ Sodium (Chloride) 100 mls @ 200 mls/hr IVPB Q6H-IV [facility] Last Admin: 12/04/16 15:55 Dose: 200 mls/hr Levothyroxine Sodium (Synthroid -) 125 mcg PO DAILY@0700 [facility] Last Admin: 12/04/16 06:53 Dose: 125 mcg Memantine (Namenda -) 5 mg PO BID [facility] Pantoprazole Sodium (Protonix -) 40 mg PO DAILY [facility] Last Admin: 12/04/16 10:26 Dose: 40 mg Polyethylene Glycol (Miralax (For Daily Use) -) 17 gm PO DAILY [facility] Last Admin: 12/04/16 10:27 Dose: 17 gm Quetiapine Fumarate (Seroquel -) 12.5 mg PO BID [facility] Senna (Senna -) 2 tab PO HS [facility] Last Admin: 12/03/16 21:46 Dose: 2 tab - Objective Vital Signs: Vital Signs Temperature 97.7 F 12/04/16 15:08 Pulse Rate 121 H 12/04/16 15:08 Respiratory Rate 16 12/04/16 15:08 Blood Pressure 115/53 12/04/16 15:08 O2 Sat by Pulse Oximetry (%) 94 L 12/04/16 10:10 Constitutional: Yes: No Distress Cardiovascular: Yes: Regular Rate and Rhythm, Tachycardia Respiratory: Yes: Diminished Gastrointestinal: Yes: Normal Bowel Sounds, Soft. No: Distention, Tenderness Edema: No Labs: CBC, BMP 12/03/16 06:00 12/03/16 06:00 INR, PTT INR 1.15 (0.82-1.09) H 11/27/16 18:30 Problem List - Problems (1) Severe sepsis Code(s): A41.9 - SEPSIS, UNSPECIFIED ORGANISM R65.20 - SEVERE SEPSIS WITHOUT SEPTIC SHOCK (2) UTI (urinary tract infection) Code(s): N39.0 - URINARY TRACT INFECTION, SITE NOT SPECIFIED Qualifiers: Urinary tract infection type: site unspecified Hematuria presence: with hematuria Qualified Code(s): N39.0 - Urinary tract infection, site not specified (3) Cardiomyopathy Code(s): I42.9 - CARDIOMYOPATHY, UNSPECIFIED (4) HLD (hyperlipidemia) Code(s): E78.5 - HYPERLIPIDEMIA, UNSPECIFIED Qualifiers: Hyperlipidemia type: pure hypercholesterolemia Qualified Code(s): E78.0 - Pure hypercholesterolemia (5) HTN (hypertension) Code(s): I10 - ESSENTIAL (PRIMARY) HYPERTENSION Qualifiers: Hypertension type: essential hypertension Qualified Code(s): I10 - Essential (primary) hypertension (6) Hypothyroidism Code(s): E03.9 - HYPOTHYROIDISM, UNSPECIFIED Qualifiers: Hypothyroidism type: unspecified Qualified Code(s): E03.9 - Hypothyroidism, unspecified (7) Pneumonia Code(s): J18.9 - PNEUMONIA, UNSPECIFIED ORGANISM Qualifiers: Pneumonia type: due to unspecified organism Laterality: left Lung location: lower lobe of lung Qualified Code(s): J18.9 - Pneumonia, unspecified organism Assessment/Plan PLAN IV antibiotics-- total 14 days Ampicillin On BIPAP PRN, she removes NC and BIPAP mask Add Seroquel for agitation continue with meds spoke with daughter who is the HCP-- have decided for DNI as well as DNR transfer to Tele, check EKG Heparin sc for DVT prophylaxis
[2016-12-04] MEDS: SENNOSIDES 8.6MG TABLET (FP) PO SCH (21:15)
[2016-12-04] MEDS: DOCUSATE SODIUM 100 MG CAPSULE (FP) PO SCH (21:15)
[2016-12-04] MEDS: ATORVASTATIN CA 10 MG TABLET (FP) PO SCH (21:15)
[2016-12-04] MEDS: MEMANTINE HCL 5 MG TABLET (UD) PO SCH (21:16)
[2016-12-04] MEDS: QUEtiapine FUMARATE 25 MG TABLET (FP) PO SCH (21:16)
--- NOTE | 2016-12-04 23:54 | EKG ---
Test Reason : Blood Pressure : / mmHG Vent. Rate : 117 BPM Atrial Rate : 117 BPM P-R Int : 114 ms QRS Dur : 138 ms QT Int : 388 ms P-R-T Axes : 023 -77 052 degrees QTc Int : 541 ms SINUS TACHYCARDIA WITH FREQUENT PREMATURE VENTRICULAR COMPLEXES LEFT AXIS DEVIATION NON-SPECIFIC INTRA-VENTRICULAR CONDUCTION BLOCK CANNOT RULE OUT SEPTAL INFARCT , AGE UNDETERMINED ABNORMAL ECG WHEN COMPARED WITH ECG OF 27-NOV-2016 18:17, PREMATURE VENTRICULAR COMPLEXES ARE NOW PRESENT T WAVE AMPLITUDE HAS INCREASED IN LATERAL LEADS Confirmed by OREN ANG MD ([id number]) on 12/04/2016 11:53:31 PM Referred By: Dennis MCALLISTER Confirmed By:OREN ANG MD
[2016-12-05] MEDS: AMPICILLIN - 2 GM in SODIUM CHLORIDE 100 ML IVPB SCH ×4 (03:14→21:32)
[2016-12-05] MEDS: DIVALPROEX SODIUM 250 MG TABLET E.C. (FP) PO SCH ×3 (06:02→21:32)
[2016-12-05] MEDS: LEVOTHYROXINE NA 125 MCG TABLET (FP) PO SCH (06:02)
[2016-12-05 07:29] LABS: BASOPHIL 0.8 % (0-2.0); EOSINOPHIL 2.2 % (0-4.5); MCHC 33.5 g/dl (32.0-36.0); MEAN CELL VOLUME 101.4 fl (80-96); MEAN PLT VOLUME 7.8 fl (7.5-11.1); NEUTROPHILS 73.7 % (42.8-82.8); PLATELET COUNT 338 K/MM3 (134-434); RDW 14.5 % (11.6-15.6); WHITE BLOOD COUNT 10.9 K/mm3 (4.0-10.0)
[2016-12-05] MEDS: ALBUTEROL SO4 2.5/IPRATROPIUM 0.5 INH SOL 3 ML VIAL.NEB. NEB PRN ×3 (07:53→14:19)
[2016-12-05 08:14] LABS: ALK PHOS 80 U/L (45-117); ANION GAP 11 (8-16); BILIRUBIN,TOTAL 0.4 mg/dL (0.2-1.0); CALCIUM 8.7 mg/dL (8.5-10.1); CO2 28 mmol/L (21-32); CREATININE 0.7 mg/dL (0.55-1.02); GLUCOSE,RANDOM 116 mg/dL (74-106); SGOT/AST 23 U/L (15-37); SGPT/ALT 30 U/L (12-78); TOT PROT 6.6 g/dl (6.4-8.2)
[2016-12-05 08:15] LABS: FREE T4 1.55 ng/dl (0.76-1.46)
[2016-12-05] MEDS: ALPRAZolam 0.25 MG TABLET PO PRN ×2 (09:22→17:26)
[2016-12-05] MEDS: PANTOPRAZOLE 40 MG TABLET (FP) PO SCH (09:23)
[2016-12-05] MEDS: ASPIRIN COATED 81 MG TABLET.EC PO SCH (09:23)
[2016-12-05] MEDS: HEPARIN NA (PORCINE) 5,000 UNITS/ML 1ML VIAL SQ SCH ×2 (09:23→21:32)
[2016-12-05] MEDS: MEMANTINE HCL 5 MG TABLET (UD) PO SCH ×2 (09:23→21:32)
[2016-12-05] MEDS: POLYETHYLENE GLYCOL 3350 119 GM BTL PO SCH (09:24)
[2016-12-05] MEDS: QUEtiapine FUMARATE 25 MG TABLET (FP) PO SCH ×2 (09:24→21:33)
[2016-12-05] MEDS: BUDESONIDE/FORMETEROL FUMARATE 160/4.5 mcg INHALER IH SCH ×2 (09:25→21:33)
--- NOTE | 2016-12-05 10:30 | PN ---
Progress Note (short form) - Note Progress Note: Subjective Patient seen and examined. Chart reviewed. Currently on BiPAP. Comfortable. Mood is calm. Denies pain. Objective Last Vital Signs Temp Pulse Resp BP Pulse Ox 98.6 F 119 H 18 107/73 94 L 12/05/16 06:16 12/05/16 06:16 12/05/16 06:16 12/05/16 06:16 12/04/16 21:00 Physical Exam Constitutional: Yes: No Distress Cardiovascular: Yes: Regular Rate and Rhythm, Tachycardia Respiratory: Yes: Diminished Gastrointestinal: Yes: Normal Bowel Sounds, Soft. No: Distention, Tenderness Edema: No Labs: CBC, BMP 12/05/16 05:35 12/05/16 05:35 Laboratory Results - last 24 hr 12/05/16 12/05/16 05:35 05:35 WBC 10.9 H D RBC 3.10 L Hgb 10.5 L Hct 31.4 L MCV 101.4 H MCHC 33.5 RDW 14.5 Plt Count 338 D MPV 7.8 Neutrophils % 73.7 Lymphocytes % 16.7 Monocytes % 6.6 Eosinophils % 2.2 Basophils % 0.8 Sodium 146 H Potassium 3.7 Chloride 107 Carbon Dioxide 28 Anion Gap 11 BUN 9 D Creatinine 0.7 D Creat Clearance w eGFR > 60 Random Glucose 116 H Calcium 8.7 Total Bilirubin 0.4 AST 23 D ALT 30 D Alkaline Phosphatase 80 Total Protein 6.6 Albumin 3.0 L TSH 2.80 D Free T4 1.55 H Assessment and Plan Clinically stable. Continue IV abx-- total of 14 days Meds reviewed. MRSA precautions. Patient is DNR/DNI. Can d/c tele. Documentation prepared by Natalie Marcos, acting as a biomedical engineering professor for Josafat Sharma MD.
--- NOTE | 2016-12-05 11:09 | PN ---
Progress Note, Physician History of Present Illness: PULMOONARY AWAKE ON BIPAP APPEARS COMFORTABLE,NAD - Current Medication List Current Medications: Active Medications Acetaminophen (Tylenol -) 650 mg PO Q6H PRN PRN Reason: FEVER OR PAIN Last Admin: 11/28/16 08:00 Dose: 650 mg Acetaminophen (Ofirmev Injection -) 1,000 mg IVPB Q6H PRN Last Admin: 11/29/16 11:05 Dose: 1,000 mg Albuterol/Ipratropium (Duoneb -) 1 amp NEB Q4H PRN PRN Reason: SHORTNESS OF BREATH Last Admin: 12/05/16 07:53 Dose: 1 amp Alprazolam (Xanax -) 0.25 mg PO Q6H PRN PRN Reason: ANXIETY Last Admin: 12/05/16 09:22 Dose: 0.25 mg Aspirin (Ecotrin -) 81 mg PO DAILY [facility] Last Admin: 12/05/16 09:23 Dose: 81 mg Atorvastatin Calcium (Lipitor -) 10 mg PO HS [facility] Last Admin: 12/04/16 21:15 Dose: 10 mg Budesonide/Formoterol Fumarate (Symbicort 160/4.5mcg -) 2 puff IH BID [facility] Last Admin: 12/05/16 09:25 Dose: 2 puff Divalproex Sodium (Depakote -) 250 mg PO TID [facility] Last Admin: 12/05/16 06:02 Dose: 250 mg Docusate Sodium (Colace -) 200 mg PO HS [facility] Last Admin: 12/04/16 21:15 Dose: 200 mg Heparin Sodium (Porcine) (Heparin -) 5,000 unit SQ BID [facility] Last Admin: 12/05/16 09:23 Dose: 5,000 unit Ampicillin Sodium 2 gm/ Sodium (Chloride) 100 mls @ 200 mls/hr IVPB Q6H-IV [facility] Last Admin: 12/05/16 09:50 Dose: 200 mls/hr Levothyroxine Sodium (Synthroid -) 125 mcg PO DAILY@0700 [facility] Last Admin: 12/05/16 06:02 Dose: 125 mcg Memantine (Namenda -) 5 mg PO BID [facility] Last Admin: 12/05/16 09:23 Dose: 5 mg Pantoprazole Sodium (Protonix -) 40 mg PO DAILY [facility] Last Admin: 12/05/16 09:23 Dose: 40 mg Polyethylene Glycol (Miralax (For Daily Use) -) 17 gm PO DAILY [facility] Last Admin: 12/05/16 09:24 Dose: 17 gm Quetiapine Fumarate (Seroquel -) 12.5 mg PO BID [facility] Last Admin: 12/05/16 09:24 Dose: 12.5 mg Senna (Senna -) 2 tab PO HS [facility] Last Admin: 12/04/16 21:15 Dose: 2 tab - Objective Vital Signs: Vital Signs Temperature 98.6 F 12/05/16 06:16 Pulse Rate 119 H 12/05/16 06:16 Respiratory Rate 18 12/05/16 06:16 Blood Pressure 107/73 12/05/16 06:16 O2 Sat by Pulse Oximetry (%) 94 L 12/04/16 21:00 Constitutional: Yes: Well Nourished, Calm Eyes: Yes: WNL HENT: Yes: WNL Neck: Yes: WNL Cardiovascular: Yes: Regular Rate and Rhythm, S1, S2 Respiratory: Yes: Diminished Gastrointestinal: Yes: WNL Extremities: Yes: WNL Edema: No Labs: CBC, BMP 12/05/16 05:35 12/05/16 05:35 INR, PTT INR 1.15 (0.82-1.09) H 11/27/16 18:30 Assessment/Plan A/P Proteus UTI/Bacteremia Septic Shock resolved Lactic Acidosis resolved Acute on Chronic LV Systolic Heart Failure Impending Acute Hypoxic Respiratory Failure COPD Paroxysmal Atrial Fibrillation h/o LV thrombus - will dose lasix - place back on BiPAP - continue antibiotics - O2 to keep SpO2 >90% - inhaled bronchodilators - aspiration precautions - DVT/GI prophylaxis DR FINCH Problem List - Problems (1) UTI (urinary tract infection) Code(s): N39.0 - URINARY TRACT INFECTION, SITE NOT SPECIFIED Qualifiers: Urinary tract infection type: site unspecified Hematuria presence: with hematuria Qualified Code(s): N39.0 - Urinary tract infection, site not specified (2) Bacteremia Code(s): R78.81 - BACTEREMIA (3) Septic shock Code(s): A41.9 - SEPSIS, UNSPECIFIED ORGANISM R65.21 - SEVERE SEPSIS WITH SEPTIC SHOCK (4) Acute on chronic systolic CHF (congestive heart failure), NYHA class 4 Code(s): I50.23 - ACUTE ON CHRONIC SYSTOLIC (CONGESTIVE) HEART FAILURE (5) HLD (hyperlipidemia) Code(s): E78.5 - HYPERLIPIDEMIA, UNSPECIFIED Qualifiers: Hyperlipidemia type: pure hypercholesterolemia Qualified Code(s): E78.0 - Pure hypercholesterolemia (6) HTN (hypertension) Code(s): I10 - ESSENTIAL (PRIMARY) HYPERTENSION Qualifiers: Hypertension type: essential hypertension Qualified Code(s): I10 - Essential (primary) hypertension (7) Hypothyroidism Code(s): E03.9 - HYPOTHYROIDISM, UNSPECIFIED Qualifiers: Hypothyroidism type: unspecified Qualified Code(s): E03.9 - Hypothyroidism, unspecified (8) Paroxysmal atrial fibrillation Code(s): I48.0 - PAROXYSMAL ATRIAL FIBRILLATION (9) Lactic acidosis Code(s): E87.2 - ACIDOSIS (10) Elevated troponin Code(s): R79.89 - OTHER SPECIFIED ABNORMAL FINDINGS OF BLOOD CHEMISTRY
--- NOTE | 2016-12-05 11:20 | PN ---
Progress Note, Physician History of Present Illness: seen and examined today in nad. no overnight events. no new complaints. - Current Medication List Current Medications: Active Medications Acetaminophen (Tylenol -) 650 mg PO Q6H PRN PRN Reason: FEVER OR PAIN Last Admin: 11/28/16 08:00 Dose: 650 mg Acetaminophen (Ofirmev Injection -) 1,000 mg IVPB Q6H PRN Last Admin: 11/29/16 11:05 Dose: 1,000 mg Albuterol/Ipratropium (Duoneb -) 1 amp NEB Q4H PRN PRN Reason: SHORTNESS OF BREATH Last Admin: 12/05/16 07:53 Dose: 1 amp Alprazolam (Xanax -) 0.25 mg PO Q6H PRN PRN Reason: ANXIETY Last Admin: 12/05/16 09:22 Dose: 0.25 mg Aspirin (Ecotrin -) 81 mg PO DAILY [facility] Last Admin: 12/05/16 09:23 Dose: 81 mg Atorvastatin Calcium (Lipitor -) 10 mg PO HS [facility] Last Admin: 12/04/16 21:15 Dose: 10 mg Budesonide/Formoterol Fumarate (Symbicort 160/4.5mcg -) 2 puff IH BID [facility] Last Admin: 12/05/16 09:25 Dose: 2 puff Divalproex Sodium (Depakote -) 250 mg PO TID [facility] Last Admin: 12/05/16 06:02 Dose: 250 mg Docusate Sodium (Colace -) 200 mg PO HS [facility] Last Admin: 12/04/16 21:15 Dose: 200 mg Heparin Sodium (Porcine) (Heparin -) 5,000 unit SQ BID [facility] Last Admin: 12/05/16 09:23 Dose: 5,000 unit Ampicillin Sodium 2 gm/ Sodium (Chloride) 100 mls @ 200 mls/hr IVPB Q6H-IV [facility] Last Admin: 12/05/16 09:50 Dose: 200 mls/hr Levothyroxine Sodium (Synthroid -) 125 mcg PO DAILY@0700 [facility] Last Admin: 12/05/16 06:02 Dose: 125 mcg Memantine (Namenda -) 5 mg PO BID [facility] Last Admin: 12/05/16 09:23 Dose: 5 mg Pantoprazole Sodium (Protonix -) 40 mg PO DAILY [facility] Last Admin: 12/05/16 09:23 Dose: 40 mg Polyethylene Glycol (Miralax (For Daily Use) -) 17 gm PO DAILY [facility] Last Admin: 12/05/16 09:24 Dose: 17 gm Quetiapine Fumarate (Seroquel -) 12.5 mg PO BID [facility] Last Admin: 12/05/16 09:24 Dose: 12.5 mg Senna (Senna -) 2 tab PO HS [facility] Last Admin: 12/04/16 21:15 Dose: 2 tab - Objective Vital Signs: Vital Signs Temperature 98.2 F 12/05/16 10:00 Pulse Rate 110 H 12/05/16 10:00 Respiratory Rate 18 12/05/16 10:00 Blood Pressure 112/77 12/05/16 10:00 O2 Sat by Pulse Oximetry (%) 92 L 12/05/16 09:00 Constitutional: Yes: No Distress, Calm, Obese Eyes: Yes: WNL, Conjunctiva Clear, EOM Intact, PERRL HENT: Yes: WNL, Atraumatic, Normocephalic Neck: Yes: WNL, Supple, Trachea Midline Cardiovascular: Yes: Regular Rate and Rhythm, S1, S2. No: Bradycardia, Tachycardia, Pulse Irregular, Bruit, JVD, Gallop, Murmur, Rub, S3, S4, Varicosities Respiratory: Yes: Regular, Diminished. No: Rales, Rhonchi, Wheezes Gastrointestinal: Yes: WNL, Normal Bowel Sounds, Soft. No: Distention, Tenderness Musculoskeletal: Yes: WNL Extremities: Yes: WNL Edema: No Peripheral Pulses WNL: Yes Peripheral Pulses: Left Doralis Pedis: 2+, Right Dorsalis Pedis: 2+ Integumentary: Yes: WNL Neurological: Yes: Alert, Oriented Psychiatric: Yes: Alert, Oriented Labs: CBC, BMP 12/05/16 05:35 12/05/16 05:35 INR, PTT INR 1.15 (0.82-1.09) H 11/27/16 18:30 - ....Imaging Chest X-ray: Report Reviewed, Image Reviewed EKG: Report Reviewed, Image Reviewed Other: Report Reviewed, Image Reviewed (tele-nsr, sinus tach, pvcs) Assessment/Plan Urosepsis Cardiomyopathy with chronic systolic CHF (non-ischemic) PAF History of LV thrombus GI bleed on coumadin Esophageal Cancer REC: Urosepsis: -improving -receiving ABx Pafib -has remained in nsr on tele -not on AC due to h/o GI bleed -cont ASA 81mg daily -has not required AV douglas blockers CHF-chronic systolic CHF -was given 1 dose of IV Lasix today -hold off on standing dose of Lasix does not require aggressive diuresis at this point Elevated troponin -slightly elevated in setting of sepsis and chronic systolic CHF -unlikely ACS -cont ASA and statin -no additional ischemic work up planned at this point Ok to dc tele
[2016-12-05] MEDS: ACETAMINOPHEN 325 MG TABLET (FP) PO PRN (12:10)
[2016-12-05] MEDS ORDERED: PT OWN MED DRAWER 7, Y5N ONE ×2 (21:20→21:29)
[2016-12-05] MEDS: DOCUSATE SODIUM 100 MG CAPSULE (FP) PO SCH (21:32)
[2016-12-05] MEDS: ATORVASTATIN CA 10 MG TABLET (FP) PO SCH (21:32)
[2016-12-05] MEDS: SENNOSIDES 8.6MG TABLET (FP) PO SCH (21:33)
[2016-12-06] MEDS ORDERED: PT OWN MED DRAWER 7, Y5N ONE ×2 (03:11→05:42)
[2016-12-06] MEDS: AMPICILLIN - 2 GM in SODIUM CHLORIDE 100 ML IVPB SCH ×4 (03:14→23:01)
[2016-12-06] MEDS: DIVALPROEX SODIUM 250 MG TABLET E.C. (FP) PO SCH ×3 (06:08→23:01)
[2016-12-06] MEDS: LEVOTHYROXINE NA 125 MCG TABLET (FP) PO SCH (06:08)
[2016-12-06] MEDS: ALBUTEROL SO4 2.5/IPRATROPIUM 0.5 INH SOL 3 ML VIAL.NEB. NEB PRN ×4 (08:19→22:48)
[2016-12-06] MEDS: ALPRAZolam 0.25 MG TABLET PO PRN ×3 (08:33→22:58)
[2016-12-06] MEDS: ACETAMINOPHEN 325 MG TABLET (FP) PO PRN (08:34)
--- NOTE | 2016-12-06 08:54 | PN ---
Progress Note, Physician History of Present Illness: seen and examined today. anxious. wheezing. yelling, confused. - Current Medication List Current Medications: Active Medications Acetaminophen (Tylenol -) 650 mg PO Q6H PRN PRN Reason: FEVER OR PAIN Last Admin: 12/06/16 08:34 Dose: 650 mg Acetaminophen (Ofirmev Injection -) 1,000 mg IVPB Q6H PRN Last Admin: 11/29/16 11:05 Dose: 1,000 mg Albuterol/Ipratropium (Duoneb -) 1 amp NEB Q4H PRN PRN Reason: SHORTNESS OF BREATH Last Admin: 12/06/16 08:19 Dose: 1 amp Alprazolam (Xanax -) 0.25 mg PO Q6H PRN PRN Reason: ANXIETY Last Admin: 12/06/16 08:33 Dose: 0.25 mg Aspirin (Ecotrin -) 81 mg PO DAILY [facility] Last Admin: 12/05/16 09:23 Dose: 81 mg Atorvastatin Calcium (Lipitor -) 10 mg PO HS [facility] Last Admin: 12/05/16 21:32 Dose: 10 mg Budesonide/Formoterol Fumarate (Symbicort 160/4.5mcg -) 2 puff IH BID [facility] Last Admin: 12/05/16 21:33 Dose: 2 puff Divalproex Sodium (Depakote -) 250 mg PO TID [facility] Last Admin: 12/06/16 06:08 Dose: 250 mg Docusate Sodium (Colace -) 200 mg PO HS [facility] Last Admin: 12/05/16 21:32 Dose: 200 mg Heparin Sodium (Porcine) (Heparin -) 5,000 unit SQ BID [facility] Last Admin: 12/05/16 21:32 Dose: 5,000 unit Ampicillin Sodium 2 gm/ Sodium (Chloride) 100 mls @ 200 mls/hr IVPB Q6H-IV [facility] Last Admin: 12/06/16 08:34 Dose: 200 mls/hr Levothyroxine Sodium (Synthroid -) 125 mcg PO DAILY@0700 [facility] Last Admin: 12/06/16 06:08 Dose: 125 mcg Memantine (Namenda -) 5 mg PO BID [facility] Last Admin: 12/05/16 21:32 Dose: 5 mg Pantoprazole Sodium (Protonix -) 40 mg PO DAILY [facility] Last Admin: 12/05/16 09:23 Dose: 40 mg Polyethylene Glycol (Miralax (For Daily Use) -) 17 gm PO DAILY [facility] Last Admin: 12/05/16 09:24 Dose: 17 gm Quetiapine Fumarate (Seroquel -) 12.5 mg PO BID [facility] Last Admin: 12/05/16 21:33 Dose: 12.5 mg Senna (Senna -) 2 tab PO HS [facility] Last Admin: 12/05/16 21:33 Dose: 2 tab - Objective Vital Signs: Vital Signs Temperature 98.3 F 12/06/16 02:43 Pulse Rate 91 H 12/06/16 02:43 Respiratory Rate 19 12/06/16 02:43 Blood Pressure 112/65 12/06/16 02:43 O2 Sat by Pulse Oximetry (%) 95 12/06/16 06:53 Constitutional: Yes: No Distress, Calm, Obese Eyes: Yes: WNL, Conjunctiva Clear, EOM Intact, PERRL HENT: Yes: WNL, Atraumatic, Normocephalic Neck: Yes: WNL, Supple, Trachea Midline Cardiovascular: Yes: Regular Rate and Rhythm, S1, S2. No: Bradycardia, Tachycardia, Pulse Irregular, Bruit, JVD, Gallop, Murmur, Rub, S3, S4, Varicosities Respiratory: Yes: Regular, Wheezes. No: Rales, Rhonchi Gastrointestinal: Yes: WNL, Normal Bowel Sounds, Soft. No: Distention, Tenderness Musculoskeletal: Yes: WNL Extremities: Yes: WNL Edema: No Peripheral Pulses WNL: Yes Peripheral Pulses: Left Doralis Pedis: 2+, Right Dorsalis Pedis: 2+ Integumentary: Yes: WNL Neurological: Yes: Alert. No: Oriented Psychiatric: Yes: Alert. No: Oriented Labs: CBC, BMP 12/05/16 05:35 12/05/16 05:35 INR, PTT INR 1.15 (0.82-1.09) H 11/27/16 18:30 - ....Imaging Chest X-ray: Report Reviewed, Image Reviewed EKG: Report Reviewed, Image Reviewed Other: Report Reviewed, Image Reviewed (tele-nsr, pvcs, couplets, triplets, brief psvt, possible brief nsvt although cannot differentiate from psvt with aberrancy) Assessment/Plan Urosepsis Cardiomyopathy with chronic systolic CHF (non-ischemic) PAF History of LV thrombus GI bleed on coumadin Esophageal Cancer REC: SOB-wheezing -pulmonary following Urosepsis: -improving -receiving ABx Pafib -has remained in nsr on tele -not on AC due to h/o GI bleed -cont ASA 81mg daily -has not required AV douglas blockers Brief PSVT vs NSVT -Mg and K levels at goal -hold off on bblocker given active wheezing -if wheezing resolves can give trial of low dose bblocker or can use low dose cardizem CHF-chronic systolic CHF -given 1 dose Lasix yesterday -can hold standing lasix Elevated troponin -slightly elevated in setting of sepsis and chronic systolic CHF -unlikely ACS -cont ASA and statin -no additional ischemic work up planned at this point Ok to dc tele
[2016-12-06] MEDS: HEPARIN NA (PORCINE) 5,000 UNITS/ML 1ML VIAL SQ SCH ×2 (09:08→22:54)
[2016-12-06] MEDS: PANTOPRAZOLE 40 MG TABLET (FP) PO SCH (09:09)
[2016-12-06] MEDS: POLYETHYLENE GLYCOL 3350 119 GM BTL PO SCH (09:09)
[2016-12-06] MEDS: ASPIRIN COATED 81 MG TABLET.EC PO SCH (09:09)
[2016-12-06] MEDS: MEMANTINE HCL 5 MG TABLET (UD) PO SCH ×2 (09:09→22:58)
[2016-12-06] MEDS: QUEtiapine FUMARATE 25 MG TABLET (FP) PO SCH ×2 (09:10→22:54)
[2016-12-06] MEDS: BUDESONIDE/FORMETEROL FUMARATE 160/4.5 mcg INHALER IH SCH ×2 (10:00→22:58)
--- NOTE | 2016-12-06 11:26 | PN ---
Progress Note, Physician History of Present Illness: pulmonary comfortable on bipap,-resp distress - Current Medication List Current Medications: Active Medications Acetaminophen (Tylenol -) 650 mg PO Q6H PRN PRN Reason: FEVER OR PAIN Last Admin: 12/06/16 08:34 Dose: 650 mg Acetaminophen (Ofirmev Injection -) 1,000 mg IVPB Q6H PRN Last Admin: 11/29/16 11:05 Dose: 1,000 mg Albuterol/Ipratropium (Duoneb -) 1 amp NEB Q4H PRN PRN Reason: SHORTNESS OF BREATH Last Admin: 12/06/16 08:19 Dose: 1 amp Alprazolam (Xanax -) 0.25 mg PO Q6H PRN PRN Reason: ANXIETY Last Admin: 12/06/16 08:33 Dose: 0.25 mg Aspirin (Ecotrin -) 81 mg PO DAILY [facility] Last Admin: 12/06/16 09:09 Dose: 81 mg Atorvastatin Calcium (Lipitor -) 10 mg PO HS [facility] Last Admin: 12/05/16 21:32 Dose: 10 mg Budesonide/Formoterol Fumarate (Symbicort 160/4.5mcg -) 2 puff IH BID [facility] Last Admin: 12/05/16 21:33 Dose: 2 puff Divalproex Sodium (Depakote -) 250 mg PO TID [facility] Last Admin: 12/06/16 06:08 Dose: 250 mg Docusate Sodium (Colace -) 200 mg PO HS [facility] Last Admin: 12/05/16 21:32 Dose: 200 mg Heparin Sodium (Porcine) (Heparin -) 5,000 unit SQ BID [facility] Last Admin: 12/06/16 09:08 Dose: 5,000 unit Ampicillin Sodium 2 gm/ Sodium (Chloride) 100 mls @ 200 mls/hr IVPB Q6H-IV [facility] Last Admin: 12/06/16 08:34 Dose: 200 mls/hr Levothyroxine Sodium (Synthroid -) 125 mcg PO DAILY@0700 [facility] Last Admin: 12/06/16 06:08 Dose: 125 mcg Memantine (Namenda -) 5 mg PO BID [facility] Last Admin: 12/06/16 09:09 Dose: 5 mg Pantoprazole Sodium (Protonix -) 40 mg PO DAILY [facility] Last Admin: 12/06/16 09:09 Dose: 40 mg Polyethylene Glycol (Miralax (For Daily Use) -) 17 gm PO DAILY [facility] Last Admin: 12/06/16 09:09 Dose: 17 gm Quetiapine Fumarate (Seroquel -) 12.5 mg PO BID [facility] Last Admin: 12/06/16 09:10 Dose: 12.5 mg Senna (Senna -) 2 tab PO HS [facility] Last Admin: 12/05/16 21:33 Dose: 2 tab - Objective Vital Signs: Vital Signs Temperature 98.3 F 12/06/16 02:43 Pulse Rate 91 H 12/06/16 02:43 Respiratory Rate 19 12/06/16 02:43 Blood Pressure 112/65 12/06/16 02:43 O2 Sat by Pulse Oximetry (%) 95 12/06/16 06:53 Constitutional: Yes: Well Nourished, Calm Eyes: Yes: WNL HENT: Yes: WNL Neck: Yes: WNL Cardiovascular: Yes: Regular Rate and Rhythm, S1, S2 Respiratory: Yes: Diminished Gastrointestinal: Yes: Normal Bowel Sounds, Soft Extremities: Yes: WNL Edema: No Labs: CBC, BMP Assessment/Plan A/P Proteus UTI/Bacteremia Septic Shock resolved Lactic Acidosis resolved Acute on Chronic LV Systolic Heart Failure Impending Acute Hypoxic Respiratory Failure COPD Paroxysmal Atrial Fibrillation h/o LV thrombus - nasal o2 alt with bipap - continue antibiotics - O2 to keep SpO2 >90% - inhaled bronchodilators - aspiration precautions - DVT/GI prophylaxis - chest x-ray DR FINCH Problem List - Problems (1) UTI (urinary tract infection) Code(s): N39.0 - URINARY TRACT INFECTION, SITE NOT SPECIFIED Qualifiers: Urinary tract infection type: site unspecified Hematuria presence: with hematuria Qualified Code(s): N39.0 - Urinary tract infection, site not specified (2) Bacteremia Code(s): R78.81 - BACTEREMIA (3) Septic shock Code(s): A41.9 - SEPSIS, UNSPECIFIED ORGANISM R65.21 - SEVERE SEPSIS WITH SEPTIC SHOCK (4) Acute on chronic systolic CHF (congestive heart failure), NYHA class 4 Code(s): I50.23 - ACUTE ON CHRONIC SYSTOLIC (CONGESTIVE) HEART FAILURE (5) HLD (hyperlipidemia) Code(s): E78.5 - HYPERLIPIDEMIA, UNSPECIFIED Qualifiers: Hyperlipidemia type: pure hypercholesterolemia Qualified Code(s): E78.0 - Pure hypercholesterolemia (6) HTN (hypertension) Code(s): I10 - ESSENTIAL (PRIMARY) HYPERTENSION Qualifiers: Hypertension type: essential hypertension Qualified Code(s): I10 - Essential (primary) hypertension (7) Hypothyroidism Code(s): E03.9 - HYPOTHYROIDISM, UNSPECIFIED Qualifiers: Hypothyroidism type: unspecified Qualified Code(s): E03.9 - Hypothyroidism, unspecified (8) Paroxysmal atrial fibrillation Code(s): I48.0 - PAROXYSMAL ATRIAL FIBRILLATION (9) Lactic acidosis Code(s): E87.2 - ACIDOSIS (10) Elevated troponin Code(s): R79.89 - OTHER SPECIFIED ABNORMAL FINDINGS OF BLOOD CHEMISTRY
--- NOTE | 2016-12-06 12:09 | PN ---
Progress Note, Physician Chief Complaint: sleepy today more calm - Current Medication List Current Medications: Active Medications Acetaminophen (Tylenol -) 650 mg PO Q6H PRN PRN Reason: FEVER OR PAIN Last Admin: 12/06/16 08:34 Dose: 650 mg Acetaminophen (Ofirmev Injection -) 1,000 mg IVPB Q6H PRN Last Admin: 11/29/16 11:05 Dose: 1,000 mg Albuterol/Ipratropium (Duoneb -) 1 amp NEB Q4H PRN PRN Reason: SHORTNESS OF BREATH Last Admin: 12/06/16 08:19 Dose: 1 amp Alprazolam (Xanax -) 0.25 mg PO Q6H PRN PRN Reason: ANXIETY Last Admin: 12/06/16 08:33 Dose: 0.25 mg Aspirin (Ecotrin -) 81 mg PO DAILY [facility] Last Admin: 12/06/16 09:09 Dose: 81 mg Atorvastatin Calcium (Lipitor -) 10 mg PO [facility] Last Admin: 12/05/16 21:32 Dose: 10 mg Budesonide/Formoterol Fumarate (Symbicort 160/4.5mcg -) 2 puff IH BID [facility] Last Admin: 12/05/16 21:33 Dose: 2 puff Divalproex Sodium (Depakote -) 250 mg PO TID [facility] Last Admin: 12/06/16 06:08 Dose: 250 mg Docusate Sodium (Colace -) 200 mg PO HS [facility] Last Admin: 12/05/16 21:32 Dose: 200 mg Heparin Sodium (Porcine) (Heparin -) 5,000 unit SQ BID [facility] Last Admin: 12/06/16 09:08 Dose: 5,000 unit Ampicillin Sodium 2 gm/ Sodium (Chloride) 100 mls @ 200 mls/hr IVPB Q6H-IV [facility] Last Admin: 12/06/16 08:34 Dose: 200 mls/hr Levothyroxine Sodium (Synthroid -) 125 mcg PO DAILY@0700 [facility] Last Admin: 12/06/16 06:08 Dose: 125 mcg Memantine (Namenda -) 5 mg PO BID [facility] Last Admin: 12/06/16 09:09 Dose: 5 mg Pantoprazole Sodium (Protonix -) 40 mg PO DAILY [facility] Last Admin: 12/06/16 09:09 Dose: 40 mg Polyethylene Glycol (Miralax (For Daily Use) -) 17 gm PO DAILY [facility] Last Admin: 12/06/16 09:09 Dose: 17 gm Quetiapine Fumarate (Seroquel -) 12.5 mg PO BID [facility] Last Admin: 12/06/16 09:10 Dose: 12.5 mg Senna (Senna -) 2 tab PO HS [facility] Last Admin: 12/05/16 21:33 Dose: 2 tab - Objective Vital Signs: Vital Signs Temperature 98 F 12/06/16 10:00 Pulse Rate 108 H 12/06/16 10:00 Respiratory Rate 20 12/06/16 10:00 Blood Pressure 120/63 12/06/16 10:00 O2 Sat by Pulse Oximetry (%) 88 L 12/06/16 09:00 Constitutional: Yes: No Distress, Calm Cardiovascular: Yes: Regular Rate and Rhythm Respiratory: Yes: Diminished Gastrointestinal: Yes: Normal Bowel Sounds, Soft. No: Distention, Tenderness Edema: No Labs: CBC, BMP 12/05/16 05:35 12/05/16 05:35 INR, PTT INR 1.15 (0.82-1.09) H 11/27/16 18:30 Problem List - Problems (1) Severe sepsis Code(s): A41.9 - SEPSIS, UNSPECIFIED ORGANISM R65.20 - SEVERE SEPSIS WITHOUT SEPTIC SHOCK (2) UTI (urinary tract infection) Code(s): N39.0 - URINARY TRACT INFECTION, SITE NOT SPECIFIED Qualifiers: Urinary tract infection type: site unspecified Hematuria presence: with hematuria Qualified Code(s): N39.0 - Urinary tract infection, site not specified (3) Cardiomyopathy Code(s): I42.9 - CARDIOMYOPATHY, UNSPECIFIED (4) HLD (hyperlipidemia) Code(s): E78.5 - HYPERLIPIDEMIA, UNSPECIFIED Qualifiers: Hyperlipidemia type: pure hypercholesterolemia Qualified Code(s): E78.0 - Pure hypercholesterolemia (5) HTN (hypertension) Code(s): I10 - ESSENTIAL (PRIMARY) HYPERTENSION Qualifiers: Hypertension type: essential hypertension Qualified Code(s): I10 - Essential (primary) hypertension (6) Hypothyroidism Code(s): E03.9 - HYPOTHYROIDISM, UNSPECIFIED Qualifiers: Hypothyroidism type: unspecified Qualified Code(s): E03.9 - Hypothyroidism, unspecified (7) Pneumonia Code(s): J18.9 - PNEUMONIA, UNSPECIFIED ORGANISM Qualifiers: Pneumonia type: due to unspecified organism Laterality: left Lung location: lower lobe of lung Qualified Code(s): J18.9 - Pneumonia, unspecified organism Assessment/Plan PLAN IV antibiotics-- total 14 days Ampicillin-- day 6 today On BIPAP PRN, she removes NC and BIPAP mask continue with meds hold Xanax if lethargic rate controlled Not on b blockers due to COPD pt is DNR /DNI Heparin sc for DVT prophylaxis
[2016-12-06] MEDS: SENNOSIDES 8.6MG TABLET (FP) PO SCH (22:54)
[2016-12-06] MEDS: DOCUSATE SODIUM 100 MG CAPSULE (FP) PO SCH (22:58)
[2016-12-06] MEDS: ATORVASTATIN CA 10 MG TABLET (FP) PO SCH (22:59)
[2016-12-07] MEDS ORDERED: PT OWN MED DRAWER 7, Y5N ONE ×4 (02:42→22:23)
[2016-12-07] MEDS: AMPICILLIN - 2 GM in SODIUM CHLORIDE 100 ML IVPB SCH ×4 (02:43→22:32)
[2016-12-07] MEDS: LEVOTHYROXINE NA 125 MCG TABLET (FP) PO SCH (06:23)
[2016-12-07] MEDS: DIVALPROEX SODIUM 250 MG TABLET E.C. (FP) PO SCH ×3 (06:23→22:34)
[2016-12-07 07:28] LABS: BASOPHIL 0.7 % (0-2.0); EOSINOPHIL 4.2 % (0-4.5); MCH 33.2 pg (25.7-33.7); MCHC 32.5 g/dl (32.0-36.0); MEAN CELL VOLUME 102.3 fl (80-96); MEAN PLT VOLUME 7.4 fl (7.5-11.1); NEUTROPHILS 68.1 % (42.8-82.8); PLATELET COUNT 376 K/MM3 (134-434); WHITE BLOOD COUNT 9.8 K/mm3 (4.0-10.0)
[2016-12-07 08:12] LABS: ALBUMIN 2.9 g/dl (3.4-5.0); ANION GAP 10 (8-16); CALCIUM 8.5 mg/dL (8.5-10.1); CO2 29 mmol/L (21-32); CREATININE 0.6 mg/dL (0.55-1.02); GLUCOSE,RANDOM 114 mg/dL (74-106); SGOT/AST 19 U/L (15-37); SGPT/ALT 29 U/L (12-78)
[2016-12-07 08:14] LABS: ALK PHOS 84 U/L (45-117); BILIRUBIN,TOTAL 0.4 mg/dL (0.2-1.0); TOT PROT 6.4 g/dl (6.4-8.2)
--- NOTE | 2016-12-07 09:17 | PN ---
Progress Note, Physician Chief Complaint: no distress alert - Current Medication List Current Medications: Active Medications Acetaminophen (Tylenol -) 650 mg PO Q6H PRN PRN Reason: FEVER OR PAIN Last Admin: 12/06/16 08:34 Dose: 650 mg Acetaminophen (Ofirmev Injection -) 1,000 mg IVPB Q6H PRN Last Admin: 11/29/16 11:05 Dose: 1,000 mg Albuterol/Ipratropium (Duoneb -) 1 amp NEB Q4H PRN PRN Reason: SHORTNESS OF BREATH Last Admin: 12/06/16 22:48 Dose: 1 amp Alprazolam (Xanax -) 0.25 mg PO Q6H PRN PRN Reason: ANXIETY Last Admin: 12/06/16 22:58 Dose: 0.25 mg Aspirin (Ecotrin -) 81 mg PO DAILY [facility] Last Admin: 12/06/16 09:09 Dose: 81 mg Atorvastatin Calcium (Lipitor -) 10 mg PO [facility] Last Admin: 12/06/16 22:59 Dose: 10 mg Budesonide/Formoterol Fumarate (Symbicort 160/4.5mcg -) 2 puff IH BID [facility] Last Admin: 12/06/16 22:58 Dose: 2 puff Divalproex Sodium (Depakote -) 250 mg PO TID [facility] Last Admin: 12/07/16 06:23 Dose: 250 mg Docusate Sodium (Colace -) 200 mg PO HS [facility] Last Admin: 12/06/16 22:58 Dose: 200 mg Heparin Sodium (Porcine) (Heparin -) 5,000 unit SQ BID [facility] Last Admin: 12/06/16 22:54 Dose: 5,000 unit Ampicillin Sodium 2 gm/ Sodium (Chloride) 100 mls @ 200 mls/hr IVPB Q6H-IV [facility] Last Admin: 12/07/16 02:43 Dose: 200 mls/hr Levothyroxine Sodium (Synthroid -) 125 mcg PO DAILY@0700 [facility] Last Admin: 12/07/16 06:23 Dose: 125 mcg Memantine (Namenda -) 5 mg PO BID [facility] Last Admin: 12/06/16 22:58 Dose: 5 mg Pantoprazole Sodium (Protonix -) 40 mg PO DAILY [facility] Last Admin: 12/06/16 09:09 Dose: 40 mg Polyethylene Glycol (Miralax (For Daily Use) -) 17 gm PO DAILY [facility] Last Admin: 12/06/16 09:09 Dose: 17 gm Quetiapine Fumarate (Seroquel -) 12.5 mg PO BID [facility] Last Admin: 12/06/16 22:54 Dose: 12.5 mg Senna (Senna -) 2 tab PO HS [facility] Last Admin: 12/06/16 22:54 Dose: 2 tab - Objective Vital Signs: Vital Signs Temperature 97.4 F L 12/07/16 08:38 Pulse Rate 110 H 12/07/16 08:38 Respiratory Rate 20 12/07/16 08:38 Blood Pressure 111/70 12/07/16 08:38 O2 Sat by Pulse Oximetry (%) 92 L 12/07/16 01:07 Constitutional: Yes: No Distress Cardiovascular: Yes: Regular Rate and Rhythm Respiratory: Yes: Other (= breath sounds bilaterally. no wheezing no rales) Gastrointestinal: Yes: Soft Edema: No Neurological: Yes: Alert Labs: CBC, BMP 12/07/16 05:35 12/07/16 05:35 INR, PTT INR 1.15 (0.82-1.09) H 11/27/16 18:30 Assessment/Plan Assessment/Plan Urosepsis Cardiomyopathy with chronic systolic CHF (non-ischemic) PAF History of LV thrombus GI bleed on coumadin Esophageal Cancer REC: Urosepsis: -improving/treated -receiving ABx Pafib -has remained in nsr on tele -not on AC due to h/o GI bleed -cont ASA 81mg daily -has not required AV douglas blockers Brief PSVT vs NSVT -Mg and K levels to be kept repleted. -hold off on bblocker given active wheezing yesterday -Cardizem would be optimal choice moving forward. CHF-chronic systolic CHF -diurese PRN Elevated troponin -slightly elevated in setting of sepsis and chronic systolic CHF -unlikely ACS -cont ASA and statin -no additional ischemic work up planned at this point
[2016-12-07] MEDS: HEPARIN NA (PORCINE) 5,000 UNITS/ML 1ML VIAL SQ SCH ×2 (09:42→22:33)
[2016-12-07] MEDS: POLYETHYLENE GLYCOL 3350 119 GM BTL PO SCH (09:42)
[2016-12-07] MEDS: ASPIRIN COATED 81 MG TABLET.EC PO SCH (09:42)
[2016-12-07] MEDS: QUEtiapine FUMARATE 25 MG TABLET (FP) PO SCH ×2 (09:43→22:33)
[2016-12-07] MEDS: MEMANTINE HCL 5 MG TABLET (UD) PO SCH ×2 (09:44→22:33)
[2016-12-07] MEDS: PANTOPRAZOLE 40 MG TABLET (FP) PO SCH (09:44)
[2016-12-07] MEDS: BUDESONIDE/FORMETEROL FUMARATE 160/4.5 mcg INHALER IH SCH ×2 (09:44→22:34)
--- NOTE | 2016-12-07 10:37 | PN ---
Progress Note, Physician Chief Complaint: no distress gets agitated - Current Medication List Current Medications: Active Medications Acetaminophen (Tylenol -) 650 mg PO Q6H PRN PRN Reason: FEVER OR PAIN Last Admin: 12/06/16 08:34 Dose: 650 mg Acetaminophen (Ofirmev Injection -) 1,000 mg IVPB Q6H PRN Last Admin: 11/29/16 11:05 Dose: 1,000 mg Albuterol/Ipratropium (Duoneb -) 1 amp NEB Q4H PRN PRN Reason: SHORTNESS OF BREATH Last Admin: 12/06/16 22:48 Dose: 1 amp Alprazolam (Xanax -) 0.25 mg PO Q6H PRN PRN Reason: ANXIETY Last Admin: 12/06/16 22:58 Dose: 0.25 mg Aspirin (Ecotrin -) 81 mg PO DAILY [facility] Last Admin: 12/07/16 09:42 Dose: 81 mg Atorvastatin Calcium (Lipitor -) 10 mg PO [facility] Last Admin: 12/06/16 22:59 Dose: 10 mg Budesonide/Formoterol Fumarate (Symbicort 160/4.5mcg -) 2 puff IH BID [facility] Last Admin: 12/07/16 09:44 Dose: 2 puff Divalproex Sodium (Depakote -) 250 mg PO TID [facility] Last Admin: 12/07/16 06:23 Dose: 250 mg Docusate Sodium (Colace -) 200 mg PO HS [facility] Last Admin: 12/06/16 22:58 Dose: 200 mg Heparin Sodium (Porcine) (Heparin -) 5,000 unit SQ BID [facility] Last Admin: 12/07/16 09:42 Dose: 5,000 unit Ampicillin Sodium 2 gm/ Sodium (Chloride) 100 mls @ 200 mls/hr IVPB Q6H-IV [facility] Last Admin: 12/07/16 09:40 Dose: 200 mls/hr Levothyroxine Sodium (Synthroid -) 125 mcg PO DAILY@0700 [facility] Last Admin: 12/07/16 06:23 Dose: 125 mcg Memantine (Namenda -) 5 mg PO BID [facility] Last Admin: 12/07/16 09:44 Dose: 5 mg Pantoprazole Sodium (Protonix -) 40 mg PO DAILY [facility] Last Admin: 12/07/16 09:44 Dose: 40 mg Polyethylene Glycol (Miralax (For Daily Use) -) 17 gm PO DAILY [facility] Last Admin: 12/07/16 09:42 Dose: 17 gm Quetiapine Fumarate (Seroquel -) 12.5 mg PO BID [facility] Last Admin: 12/07/16 09:43 Dose: 12.5 mg Senna (Senna -) 2 tab PO HS [facility] Last Admin: 12/06/16 22:54 Dose: 2 tab - Objective Vital Signs: Vital Signs Temperature 97.4 F L 12/07/16 08:38 Pulse Rate 110 H 12/07/16 08:38 Respiratory Rate 20 12/07/16 08:38 Blood Pressure 111/70 12/07/16 08:38 O2 Sat by Pulse Oximetry (%) 92 L 12/07/16 01:07 Constitutional: Yes: No Distress Cardiovascular: Yes: Regular Rate and Rhythm Respiratory: Yes: Diminished, Rhonchi (occasional) Gastrointestinal: Yes: Normal Bowel Sounds, Soft, Abdomen, Obese. No: Distention, Tenderness Edema: No Labs: CBC, BMP 12/07/16 05:35 12/07/16 05:35 INR, PTT INR 1.15 (0.82-1.09) H 11/27/16 18:30 Problem List - Problems (1) Severe sepsis Code(s): A41.9 - SEPSIS, UNSPECIFIED ORGANISM R65.20 - SEVERE SEPSIS WITHOUT SEPTIC SHOCK (2) UTI (urinary tract infection) Code(s): N39.0 - URINARY TRACT INFECTION, SITE NOT SPECIFIED Qualifiers: Urinary tract infection type: site unspecified Hematuria presence: with hematuria Qualified Code(s): N39.0 - Urinary tract infection, site not specified (3) Cardiomyopathy Code(s): I42.9 - CARDIOMYOPATHY, UNSPECIFIED (4) HLD (hyperlipidemia) Code(s): E78.5 - HYPERLIPIDEMIA, UNSPECIFIED Qualifiers: Hyperlipidemia type: pure hypercholesterolemia Qualified Code(s): E78.0 - Pure hypercholesterolemia (5) HTN (hypertension) Code(s): I10 - ESSENTIAL (PRIMARY) HYPERTENSION Qualifiers: Hypertension type: essential hypertension Qualified Code(s): I10 - Essential (primary) hypertension (6) Hypothyroidism Code(s): E03.9 - HYPOTHYROIDISM, UNSPECIFIED Qualifiers: Hypothyroidism type: unspecified Qualified Code(s): E03.9 - Hypothyroidism, unspecified (7) Pneumonia Code(s): J18.9 - PNEUMONIA, UNSPECIFIED ORGANISM Qualifiers: Pneumonia type: due to unspecified organism Laterality: left Lung location: lower lobe of lung Qualified Code(s): J18.9 - Pneumonia, unspecified organism Assessment/Plan PLAN IV antibiotics-- total 14 days Ampicillin-- day 7 today On BIPAP PRN, she removes NC and BIPAP mask continue with meds hold Xanax if lethargic increase seroquel rate controlled Not on b blockers due to COPD pt is DNR /DNI Heparin sc for DVT prophylaxis
--- NOTE | 2016-12-07 11:57 | PN ---
Progress Note (short form) - Note Progress Note: PULMONARY RESTING COMFORTABLY ON BIPAP VSS/AFBRILE/PALE/BIPAP MASK IN PLACE DISTANT B/L BREATH SOUNDS S1S2 OBESE SOFT NO EDEMA LABS/MEDS/NOTES/IMAGING/MICRO/REVIEWED Proteus UTI/Bacteremia Septic Shock resolved Lactic Acidosis resolved Acute on Chronic LV Systolic Heart Failure Impending Acute Hypoxic Respiratory Failure COPD Paroxysmal Atrial Fibrillation h/o LV thrombus - nasal o2 alt with bipap - continue antibiotics - O2 to keep SpO2 >90% - inhaled bronchodilators - aspiration precautions - DVT/GI prophylaxis Priscila LORA MD
[2016-12-07] MEDS: ALBUTEROL SO4 2.5/IPRATROPIUM 0.5 INH SOL 3 ML VIAL.NEB. NEB PRN ×2 (18:10→23:47)
[2016-12-07] MEDS: ALPRAZolam 0.25 MG TABLET PO PRN (18:30)
[2016-12-07] MEDS: SENNOSIDES 8.6MG TABLET (FP) PO SCH (22:33)
[2016-12-07] MEDS: ATORVASTATIN CA 10 MG TABLET (FP) PO SCH (22:33)
[2016-12-07] MEDS: DOCUSATE SODIUM 100 MG CAPSULE (FP) PO SCH (22:33)
[2016-12-08] MEDS: AMPICILLIN - 2 GM in SODIUM CHLORIDE 100 ML IVPB SCH ×4 (04:00→21:37)
[2016-12-08] MEDS: ALPRAZolam 0.25 MG TABLET PO PRN (04:15)
[2016-12-08] MEDS: DIVALPROEX SODIUM 250 MG TABLET E.C. (FP) PO SCH ×3 (06:44→21:38)
[2016-12-08] MEDS: LEVOTHYROXINE NA 125 MCG TABLET (FP) PO SCH (06:44)
[2016-12-08] MEDS ORDERED: PT OWN MED DRAWER 7, Y5N ONE ×3 (08:21→21:01)
--- NOTE | 2016-12-08 10:13 | PN ---
Progress Note, Physician Chief Complaint: no distress gets agitated tries to get out of bed Not dyspneic - Current Medication List Current Medications: Active Medications Acetaminophen (Tylenol -) 650 mg PO Q6H PRN PRN Reason: FEVER OR PAIN Last Admin: 12/06/16 08:34 Dose: 650 mg Acetaminophen (Ofirmev Injection -) 1,000 mg IVPB Q6H PRN Last Admin: 11/29/16 11:05 Dose: 1,000 mg Albuterol/Ipratropium (Duoneb -) 1 amp NEB Q4H PRN PRN Reason: SHORTNESS OF BREATH Last Admin: 12/07/16 23:47 Dose: 1 amp Alprazolam (Xanax -) 0.25 mg PO Q6H PRN PRN Reason: ANXIETY Last Admin: 12/08/16 04:15 Dose: 0.25 mg Aspirin (Ecotrin -) 81 mg PO DAILY [facility] Last Admin: 12/07/16 09:42 Dose: 81 mg Atorvastatin Calcium (Lipitor -) 10 mg PO HS [facility] Last Admin: 12/07/16 22:33 Dose: 10 mg Budesonide/Formoterol Fumarate (Symbicort 160/4.5mcg -) 2 puff IH BID [facility] Last Admin: 12/07/16 22:34 Dose: 2 puff Divalproex Sodium (Depakote -) 250 mg PO TID [facility] Last Admin: 12/08/16 06:44 Dose: 250 mg Docusate Sodium (Colace -) 200 mg PO HS [facility] Last Admin: 12/07/16 22:33 Dose: 200 mg Heparin Sodium (Porcine) (Heparin -) 5,000 unit SQ BID [facility] Last Admin: 12/07/16 22:33 Dose: 5,000 unit Ampicillin Sodium 2 gm/ Sodium (Chloride) 100 mls @ 200 mls/hr IVPB Q6H-IV [facility] Last Admin: 12/08/16 04:00 Dose: 200 mls/hr Levothyroxine Sodium (Synthroid -) 125 mcg PO DAILY@0700 [facility] Last Admin: 12/08/16 06:44 Dose: 125 mcg Memantine (Namenda -) 5 mg PO BID [facility] Last Admin: 12/07/16 22:33 Dose: 5 mg Pantoprazole Sodium (Protonix -) 40 mg PO DAILY [facility] Last Admin: 12/07/16 09:44 Dose: 40 mg Polyethylene Glycol (Miralax (For Daily Use) -) 17 gm PO DAILY [facility] Last Admin: 12/07/16 09:42 Dose: 17 gm Quetiapine Fumarate (Seroquel -) 25 mg PO BID [facility] Last Admin: 12/07/16 22:33 Dose: 25 mg Senna (Senna -) 2 tab PO HS [facility] Last Admin: 12/07/16 22:33 Dose: 2 tab - Objective Vital Signs: Vital Signs Temperature 98.1 F 12/08/16 06:00 Pulse Rate 84 12/08/16 06:00 Respiratory Rate 20 12/08/16 06:00 Blood Pressure 132/89 12/08/16 06:00 O2 Sat by Pulse Oximetry (%) 96 12/07/16 22:00 Constitutional: Yes: No Distress Cardiovascular: Yes: Pulse Irregular Respiratory: Yes: Diminished, Rhonchi Gastrointestinal: Yes: Normal Bowel Sounds, Soft, Abdomen, Obese. No: Distention, Tenderness Edema: No Psychiatric: Yes: Alert, Agitated Labs: CBC, BMP 12/07/16 05:35 12/07/16 05:35 INR, PTT INR 1.15 (0.82-1.09) H 11/27/16 18:30 Problem List - Problems (1) Severe sepsis Code(s): A41.9 - SEPSIS, UNSPECIFIED ORGANISM R65.20 - SEVERE SEPSIS WITHOUT SEPTIC SHOCK (2) UTI (urinary tract infection) Code(s): N39.0 - URINARY TRACT INFECTION, SITE NOT SPECIFIED Qualifiers: Urinary tract infection type: site unspecified Hematuria presence: with hematuria Qualified Code(s): N39.0 - Urinary tract infection, site not specified (3) Cardiomyopathy Code(s): I42.9 - CARDIOMYOPATHY, UNSPECIFIED (4) HLD (hyperlipidemia) Code(s): E78.5 - HYPERLIPIDEMIA, UNSPECIFIED Qualifiers: Hyperlipidemia type: pure hypercholesterolemia Qualified Code(s): E78.0 - Pure hypercholesterolemia (5) HTN (hypertension) Code(s): I10 - ESSENTIAL (PRIMARY) HYPERTENSION Qualifiers: Hypertension type: essential hypertension Qualified Code(s): I10 - Essential (primary) hypertension (6) Hypothyroidism Code(s): E03.9 - HYPOTHYROIDISM, UNSPECIFIED Qualifiers: Hypothyroidism type: unspecified Qualified Code(s): E03.9 - Hypothyroidism, unspecified (7) Pneumonia Code(s): J18.9 - PNEUMONIA, UNSPECIFIED ORGANISM Qualifiers: Pneumonia type: due to unspecified organism Laterality: left Lung location: lower lobe of lung Qualified Code(s): J18.9 - Pneumonia, unspecified organism Assessment/Plan PLAN IV antibiotics-- total 14 days Ampicillin-- day 8 today On BIPAP PRN, she removes NC and BIPAP mask continue with meds hold Xanax if lethargic Psychiatry eval for agitation Not on b blockers due to COPD pt is DNR /DNI Spoke with daughter today Heparin sc for DVT prophylaxis
[2016-12-08] MEDS: HEPARIN NA (PORCINE) 5,000 UNITS/ML 1ML VIAL SQ SCH ×2 (10:27→21:38)
[2016-12-08] MEDS: ASPIRIN COATED 81 MG TABLET.EC PO SCH (10:27)
[2016-12-08] MEDS: PANTOPRAZOLE 40 MG TABLET (FP) PO SCH (10:27)
[2016-12-08] MEDS: MEMANTINE HCL 5 MG TABLET (UD) PO SCH ×2 (10:27→21:38)
[2016-12-08] MEDS: QUEtiapine FUMARATE 25 MG TABLET (FP) PO SCH (10:27)
[2016-12-08] MEDS: BUDESONIDE/FORMETEROL FUMARATE 160/4.5 mcg INHALER IH SCH ×2 (10:28→21:39)
[2016-12-08] MEDS: POLYETHYLENE GLYCOL 3350 119 GM BTL PO SCH (10:28)
--- NOTE | 2016-12-08 12:12 | PN ---
Progress Note, Physician History of Present Illness: seen and examined today. confused, agitated. no overnight events. no reported new complaints. - Current Medication List Current Medications: Active Medications Acetaminophen (Tylenol -) 650 mg PO Q6H PRN PRN Reason: FEVER OR PAIN Last Admin: 12/06/16 08:34 Dose: 650 mg Acetaminophen (Ofirmev Injection -) 1,000 mg IVPB Q6H PRN Last Admin: 11/29/16 11:05 Dose: 1,000 mg Albuterol/Ipratropium (Duoneb -) 1 amp NEB Q4H PRN PRN Reason: SHORTNESS OF BREATH Last Admin: 12/07/16 23:47 Dose: 1 amp Alprazolam (Xanax -) 0.25 mg PO Q6H PRN PRN Reason: ANXIETY Last Admin: 12/08/16 04:15 Dose: 0.25 mg Aspirin (Ecotrin -) 81 mg PO DAILY [facility] Last Admin: 12/08/16 10:27 Dose: 81 mg Atorvastatin Calcium (Lipitor -) 10 mg PO HS [facility] Last Admin: 12/07/16 22:33 Dose: 10 mg Budesonide/Formoterol Fumarate (Symbicort 160/4.5mcg -) 2 puff IH BID [facility] Last Admin: 12/08/16 10:28 Dose: 2 puff Divalproex Sodium (Depakote -) 250 mg PO TID [facility] Last Admin: 12/08/16 06:44 Dose: 250 mg Docusate Sodium (Colace -) 200 mg PO HS [facility] Last Admin: 12/07/16 22:33 Dose: 200 mg Heparin Sodium (Porcine) (Heparin -) 5,000 unit SQ BID [facility] Last Admin: 12/08/16 10:27 Dose: 5,000 unit Ampicillin Sodium 2 gm/ Sodium (Chloride) 100 mls @ 200 mls/hr IVPB Q6H-IV [facility] Last Admin: 12/08/16 10:27 Dose: 200 mls/hr Levothyroxine Sodium (Synthroid -) 125 mcg PO DAILY@0700 [facility] Last Admin: 12/08/16 06:44 Dose: 125 mcg Memantine (Namenda -) 5 mg PO BID [facility] Last Admin: 12/08/16 10:27 Dose: 5 mg Pantoprazole Sodium (Protonix -) 40 mg PO DAILY [facility] Last Admin: 12/08/16 10:27 Dose: 40 mg Polyethylene Glycol (Miralax (For Daily Use) -) 17 gm PO DAILY [facility] Last Admin: 12/08/16 10:28 Dose: 17 gm Quetiapine Fumarate (Seroquel -) 25 mg PO BID [facility] Last Admin: 12/08/16 10:27 Dose: 25 mg Senna (Senna -) 2 tab PO HS [facility] Last Admin: 12/07/16 22:33 Dose: 2 tab - Objective Vital Signs: Vital Signs Temperature 98.1 F 12/08/16 06:00 Pulse Rate 84 12/08/16 06:00 Respiratory Rate 20 12/08/16 06:00 Blood Pressure 132/89 12/08/16 06:00 O2 Sat by Pulse Oximetry (%) 96 12/07/16 22:00 Constitutional: Yes: No Distress, Anxious, Obese Eyes: Yes: Conjunctiva Clear, EOM Intact, PERRL HENT: Yes: WNL, Atraumatic, Normocephalic Neck: Yes: WNL, Supple, Trachea Midline Cardiovascular: Yes: Regular Rate and Rhythm, S1, S2. No: Bradycardia, Tachycardia, Pulse Irregular, Bruit, JVD, Gallop, Murmur, Rub, S3, S4, Varicosities Respiratory: Yes: Regular, Tachypnea, Wheezes. No: Rales, Rhonchi Gastrointestinal: Yes: WNL, Normal Bowel Sounds, Soft. No: Distention, Tenderness Musculoskeletal: Yes: Muscle Weakness Extremities: Yes: WNL Edema: No Peripheral Pulses WNL: Yes Peripheral Pulses: Left Doralis Pedis: 2+, Right Dorsalis Pedis: 2+ Integumentary: Yes: WNL Neurological: Yes: Alert. No: Oriented Psychiatric: Yes: Alert. No: Oriented Labs: CBC, BMP 12/07/16 05:35 12/07/16 05:35 INR, PTT INR 1.15 (0.82-1.09) H 11/27/16 18:30 - ....Imaging Chest X-ray: Report Reviewed, Image Reviewed EKG: Report Reviewed, Image Reviewed Other: Report Reviewed, Image Reviewed (tele-no longer on tele) Assessment/Plan Urosepsis Cardiomyopathy with chronic systolic CHF (non-ischemic) PAF History of LV thrombus GI bleed on coumadin Esophageal Cancer REC: Pafib -nsr through most of the admission -not on full AC due to h/o GI bleed -cont ASA 81mg daily -has not required AV douglas blockers Brief PSVT vs NSVT -keep K and Mg approx 4 and 2 respectively -hold off on bblocker given wheezing -if AV douglas mirza needed would use Cardizem, currently does not require CHF-chronic systolic CHF -has remained euvolemic -diurese only as needed, does not require standing diuretics Elevated troponin -slightly elevated in setting of sepsis and chronic systolic CHF -unlikely ACS -cont ASA and statin -no additional ischemic work up planned at this point
[2016-12-08] MEDS ORDERED: ALPRAZolam 0.25 MG TABLET PO PRN (13:07)
--- NOTE | 2016-12-08 13:37 | CONSULT ---
Psychiatry Consult Chief Complaint: Yelling and screaming and verbally abusive. poor response to [facility] psych meds. Symptoms: reports: Memory Impairment, Irritability, Inability to Control Temper , Aggressivity - Previous Psychiatric Treatment Outpatient: None Inpatient: None - Previous Substance Abuse Treatment Outpatient: None Inpatient: None - Family History Family History: Unremarkable - Current Medications Current Medications: Active Medications Acetaminophen (Tylenol -) 650 mg PO Q6H PRN PRN Reason: FEVER OR PAIN Last Admin: 12/06/16 08:34 Dose: 650 mg Acetaminophen (Ofirmev Injection -) 1,000 mg IVPB Q6H PRN Last Admin: 11/29/16 11:05 Dose: 1,000 mg Albuterol/Ipratropium (Duoneb -) 1 amp NEB Q4H PRN PRN Reason: SHORTNESS OF BREATH Last Admin: 12/07/16 23:47 Dose: 1 amp Aspirin (Ecotrin -) 81 mg PO DAILY [facility] Last Admin: 12/08/16 10:27 Dose: 81 mg Atorvastatin Calcium (Lipitor -) 10 mg PO [facility] Last Admin: 12/07/16 22:33 Dose: 10 mg Budesonide/Formoterol Fumarate (Symbicort 160/4.5mcg -) 2 puff IH BID [facility] Last Admin: 12/08/16 10:28 Dose: 2 puff Divalproex Sodium (Depakote -) 250 mg PO TID [facility] Last Admin: 12/08/16 06:44 Dose: 250 mg Docusate Sodium (Colace -) 200 mg PO [facility] Last Admin: 12/07/16 22:33 Dose: 200 mg Heparin Sodium (Porcine) (Heparin -) 5,000 unit SQ BID [facility] Last Admin: 12/08/16 10:27 Dose: 5,000 unit Ampicillin Sodium 2 gm/ Sodium (Chloride) 100 mls @ 200 mls/hr IVPB Q6H-IV [facility] Last Admin: 12/08/16 10:27 Dose: 200 mls/hr Levothyroxine Sodium (Synthroid -) 125 mcg PO DAILY@0700 [facility] Last Admin: 12/08/16 06:44 Dose: 125 mcg Lorazepam (Ativan -) 1 mg PO BID [facility] Stop: 12/08/16 13:32 Memantine (Namenda -) 5 mg PO BID [facility] Last Admin: 12/08/16 10:27 Dose: 5 mg Pantoprazole Sodium (Protonix -) 40 mg PO DAILY [facility] Last Admin: 12/08/16 10:27 Dose: 40 mg Polyethylene Glycol (Miralax (For Daily Use) -) 17 gm PO DAILY [facility] Last Admin: 12/08/16 10:28 Dose: 17 gm Senna (Senna -) 2 tab PO HS [facility] Last Admin: 12/07/16 22:33 Dose: 2 tab - Allergies Allergies: Allergies Allergy/AdvReac Type Severity Reaction Status Date / Time No Known Drug Allergies Allergy Verified 11/27/16 18:32 - Current Living Status Usual Living Arrangement: Intermediate - Current Mental Status Evaluation Appearance: Disheveled Attitude: Belligerent - Affect Affect: Expansive Appropriateness: Not Appropriate - Mood Mood: Angry - Speech/Language Expressive: Delayed - Psychomotor Activity Psychomotor Activity: Hyperactive - Thought Process Thought Process: Circumstantial - Thought Content Hallucinations: Absent Delusions: Absent - Self Perception Self Perception: Depersonalization - Cognition Attention: Diminished Orientation: Person, Place Memory, Immediate Recall: Impaired Memory, Short Term: 0/3 Memory, Remote with Promptin/3 - Concentration Serial Sevens Intact: No Simple Calculations Intact: No - Abstraction Proverb Interpretation: Impaired Judgement: Moderately Impaired - Insight Insight: Impaired - Impulse Control Impulse Control: Moderately Impaired - Suicidal Ideation Suicidal Ideation: No - Homicidal Ideation Homicidal Ideation: No Assessment/Plan Switch to Ativan po and prn as per orders.
--- NOTE | 2016-12-08 13:59 | PN ---
Progress Note (short form) - Note Progress Note: PULMONARY Feels short of breath on nasal cannula. Confused. Last Vital Signs Temp Pulse Resp BP Pulse Ox 97.0 F L 96 H 24 130/80 96 12/08/16 10:00 12/08/16 10:00 12/08/16 10:00 12/08/16 10:00 12/07/16 22:00 Gen: mildly tachypneic at rest with abdominal breathing Heart: tachycardic, regular Lung: bilateral rhonchi Abd: soft, nontender Ext: no edema CBC, BMP 12/07/16 05:35 12/07/16 05:35 Active Medications Acetaminophen (Tylenol -) 650 mg PO Q6H PRN PRN Reason: FEVER OR PAIN Last Admin: 12/06/16 08:34 Dose: 650 mg Acetaminophen (Ofirmev Injection -) 1,000 mg IVPB Q6H PRN Last Admin: 11/29/16 11:05 Dose: 1,000 mg Albuterol/Ipratropium (Duoneb -) 1 amp NEB Q4H PRN PRN Reason: SHORTNESS OF BREATH Last Admin: 12/07/16 23:47 Dose: 1 amp Aspirin (Ecotrin -) 81 mg PO DAILY [facility] Last Admin: 12/08/16 10:27 Dose: 81 mg Atorvastatin Calcium (Lipitor -) 10 mg PO HS [facility] Last Admin: 12/07/16 22:33 Dose: 10 mg Budesonide/Formoterol Fumarate (Symbicort 160/4.5mcg -) 2 puff IH BID [facility] Last Admin: 12/08/16 10:28 Dose: 2 puff Divalproex Sodium (Depakote -) 250 mg PO TID [facility] Last Admin: 12/08/16 06:44 Dose: 250 mg Docusate Sodium (Colace -) 200 mg PO HS [facility] Last Admin: 12/07/16 22:33 Dose: 200 mg Heparin Sodium (Porcine) (Heparin -) 5,000 unit SQ BID [facility] Last Admin: 12/08/16 10:27 Dose: 5,000 unit Ampicillin Sodium 2 gm/ Sodium (Chloride) 100 mls @ 200 mls/hr IVPB Q6H-IV [facility] Last Admin: 12/08/16 10:27 Dose: 200 mls/hr Levothyroxine Sodium (Synthroid -) 125 mcg PO DAILY@0700 [facility] Last Admin: 12/08/16 06:44 Dose: 125 mcg Lorazepam (Ativan -) 1 mg PO BID [facility] Lorazepam (Ativan Injection -) 2 mg IM BID PRN PRN Reason: ANXIETY Memantine (Namenda -) 5 mg PO BID [facility] Last Admin: 12/08/16 10:27 Dose: 5 mg Pantoprazole Sodium (Protonix -) 40 mg PO DAILY [facility] Last Admin: 12/08/16 10:27 Dose: 40 mg Polyethylene Glycol (Miralax (For Daily Use) -) 17 gm PO DAILY [facility] Last Admin: 12/08/16 10:28 Dose: 17 gm Senna (Senna -) 2 tab PO HS [facility] Last Admin: 12/07/16 22:33 Dose: 2 tab A/P Proteus UTI/Bacteremia Septic Shock resolved Lactic Acidosis resolved Acute on Chronic LV Systolic Heart Failure Impending Acute Hypoxic Respiratory Failure COPD Paroxysmal Atrial Fibrillation h/o LV thrombus - lasix as needed - continue antibiotics - BiPAP at night and PRN during day - O2 to keep SpO2 >90% - inhaled bronchodilators - aspiration precautions - PO as tolerated - DVT/GI prophylaxis Problem List - Problems (1) UTI (urinary tract infection) Code(s): N39.0 - URINARY TRACT INFECTION, SITE NOT SPECIFIED Qualifiers: Urinary tract infection type: site unspecified Hematuria presence: with hematuria Qualified Code(s): N39.0 - Urinary tract infection, site not specified (2) Bacteremia Code(s): R78.81 - BACTEREMIA (3) Septic shock Code(s): A41.9 - SEPSIS, UNSPECIFIED ORGANISM R65.21 - SEVERE SEPSIS WITH SEPTIC SHOCK (4) Acute on chronic systolic CHF (congestive heart failure), NYHA class 4 Code(s): I50.23 - ACUTE ON CHRONIC SYSTOLIC (CONGESTIVE) HEART FAILURE (5) HLD (hyperlipidemia) Code(s): E78.5 - HYPERLIPIDEMIA, UNSPECIFIED Qualifiers: Hyperlipidemia type: pure hypercholesterolemia Qualified Code(s): E78.0 - Pure hypercholesterolemia (6) HTN (hypertension) Code(s): I10 - ESSENTIAL (PRIMARY) HYPERTENSION Qualifiers: Hypertension type: essential hypertension Qualified Code(s): I10 - Essential (primary) hypertension (7) Hypothyroidism Code(s): E03.9 - HYPOTHYROIDISM, UNSPECIFIED Qualifiers: Hypothyroidism type: unspecified Qualified Code(s): E03.9 - Hypothyroidism, unspecified (8) Paroxysmal atrial fibrillation Code(s): I48.0 - PAROXYSMAL ATRIAL FIBRILLATION (9) Lactic acidosis Code(s): E87.2 - ACIDOSIS (10) Elevated troponin Code(s): R79.89 - OTHER SPECIFIED ABNORMAL FINDINGS OF BLOOD CHEMISTRY
[2016-12-08] MEDS: LORazepam 1 MG TABLET PO SCH ×2 (14:29→21:37)
[2016-12-08] MEDS: DOCUSATE SODIUM 100 MG CAPSULE (FP) PO SCH (21:37)
[2016-12-08] MEDS: ATORVASTATIN CA 10 MG TABLET (FP) PO SCH (21:38)
[2016-12-08] MEDS: SENNOSIDES 8.6MG TABLET (FP) PO SCH (21:38)
[2016-12-09] MEDS ORDERED: PT OWN MED DRAWER 7, Y5N ONE ×5 (02:53→22:43)
[2016-12-09] MEDS: LORAZEPAM CARPU-JECT 2 MG/ML DISP.SYRIN IM PRN ×2 (02:59→11:14)
[2016-12-09] MEDS: AMPICILLIN - 2 GM in SODIUM CHLORIDE 100 ML IVPB SCH ×4 (02:59→22:00)
[2016-12-09] MEDS: DIVALPROEX SODIUM 250 MG TABLET E.C. (FP) PO SCH ×3 (06:07→22:50)
[2016-12-09] MEDS: LEVOTHYROXINE NA 125 MCG TABLET (FP) PO SCH (06:07)
[2016-12-09] MEDS: ALBUTEROL SO4 2.5/IPRATROPIUM 0.5 INH SOL 3 ML VIAL.NEB. NEB PRN (06:29)
[2016-12-09 07:08] LABS: BASOPHIL 0.7 % (0-2.0); EOSINOPHIL 2.9 % (0-4.5); MCH 33.5 pg (25.7-33.7); MCHC 32.3 g/dl (32.0-36.0); MEAN CELL VOLUME 103.6 fl (80-96); MEAN PLT VOLUME 7.8 fl (7.5-11.1); NEUTROPHILS 75.1 % (42.8-82.8); PLATELET COUNT 317 K/MM3 (134-434); RDW 15.3 % (11.6-15.6); WHITE BLOOD COUNT 8.9 K/mm3 (4.0-10.0)
[2016-12-09 07:21] LABS: ALBUMIN 2.7 g/dl (3.4-5.0); ANION GAP 5 (8-16); CALCIUM 8.5 mg/dL (8.5-10.1); CO2 34 mmol/L (21-32); GLUCOSE,RANDOM 103 mg/dL (74-106); SGOT/AST 11 U/L (15-37); SGPT/ALT 25 U/L (12-78)
[2016-12-09 07:23] LABS: ALK PHOS 69 U/L (45-117); BILIRUBIN,TOTAL 0.3 mg/dL (0.2-1.0); CREATININE 0.6 mg/dL (0.55-1.02)
--- NOTE | 2016-12-09 09:29 | PN ---
Progress Note, Physician Chief Complaint: no acute distress feels short of breath - Current Medication List Current Medications: Active Medications Acetaminophen (Tylenol -) 650 mg PO Q6H PRN PRN Reason: FEVER OR PAIN Last Admin: 12/06/16 08:34 Dose: 650 mg Acetaminophen (Ofirmev Injection -) 1,000 mg IVPB Q6H PRN Last Admin: 11/29/16 11:05 Dose: 1,000 mg Albuterol/Ipratropium (Duoneb -) 1 amp NEB Q4H PRN PRN Reason: SHORTNESS OF BREATH Last Admin: 12/09/16 06:29 Dose: 1 amp Aspirin (Ecotrin -) 81 mg PO DAILY [facility] Last Admin: 12/08/16 10:27 Dose: 81 mg Atorvastatin Calcium (Lipitor -) 10 mg PO HS [facility] Last Admin: 12/08/16 21:38 Dose: 10 mg Budesonide/Formoterol Fumarate (Symbicort 160/4.5mcg -) 2 puff IH BID [facility] Last Admin: 12/08/16 21:39 Dose: 2 puff Divalproex Sodium (Depakote -) 250 mg PO TID [facility] Last Admin: 12/09/16 06:07 Dose: 250 mg Docusate Sodium (Colace -) 200 mg PO HS [facility] Last Admin: 12/08/16 21:37 Dose: 200 mg Heparin Sodium (Porcine) (Heparin -) 5,000 unit SQ BID [facility] Last Admin: 12/08/16 21:38 Dose: 5,000 unit Ampicillin Sodium 2 gm/ Sodium (Chloride) 100 mls @ 200 mls/hr IVPB Q6H-IV [facility] Last Admin: 12/09/16 08:07 Dose: 200 mls/hr Levothyroxine Sodium (Synthroid -) 125 mcg PO DAILY@0700 [facility] Last Admin: 12/09/16 06:07 Dose: 125 mcg Lorazepam (Ativan -) 1 mg PO BID [facility] Last Admin: 12/08/16 21:37 Dose: 1 mg Lorazepam (Ativan Injection -) 2 mg IM BID PRN PRN Reason: ANXIETY Last Admin: 12/09/16 02:59 Dose: 2 mg Memantine (Namenda -) 5 mg PO BID [facility] Last Admin: 12/08/16 21:38 Dose: 5 mg Pantoprazole Sodium (Protonix -) 40 mg PO DAILY [facility] Last Admin: 12/08/16 10:27 Dose: 40 mg Polyethylene Glycol (Miralax (For Daily Use) -) 17 gm PO DAILY [facility] Last Admin: 12/08/16 10:28 Dose: 17 gm Senna (Senna -) 2 tab PO HS [facility] Last Admin: 12/08/16 21:38 Dose: 2 tab - Objective Vital Signs: Vital Signs Temperature 97.5 F L 12/09/16 07:32 Pulse Rate 82 12/09/16 07:32 Respiratory Rate 24 12/09/16 07:35 Blood Pressure 123/67 12/09/16 07:32 O2 Sat by Pulse Oximetry (%) 98 12/09/16 07:35 Constitutional: Yes: No Distress Cardiovascular: Yes: Regular Rate and Rhythm Respiratory: Yes: Other (decreased breath sounds at bases b/l) Gastrointestinal: Yes: Soft, Abdomen, Obese Edema: Yes Edema: LLE: 1+, RLE: 1+ Labs: CBC, BMP 12/09/16 05:35 12/09/16 05:35 INR, PTT INR 1.15 (0.82-1.09) H 11/27/16 18:30 Laboratory Tests 11/30/16 12/09/16 12/09/16 09:00 05:35 05:35 WBC Pending 8.9 RBC Pending Hgb Pending Hct Pending 31.9 L Plt Count Pending 317 Neutrophils % Pending Lymphocytes % Pending Sodium 152 H Potassium 3.6 BUN 8 Creatinine 0.6 Assessment/Plan Assessment/Plan Urosepsis Cardiomyopathy with chronic systolic CHF (non-ischemic) PAF History of LV thrombus GI bleed on coumadin Esophageal Cancer Hypernatremia REC: Pafib -nsr through most of the admission -not on full AC due to h/o GI bleed -cont ASA 81mg daily -has not required AV douglas blockers Brief PSVT vs NSVT -keep K and Mg approx 4 and 2 respectively -hold off on bblocker given wheezing -if AV douglas mirza needed would use Cardizem, currently does not require CHF-chronic systolic CHF -has remained euvolemic -diurese only as needed, does not require standing diuretics - Repeat CXR today Elevated troponin -slightly elevated in setting of sepsis and chronic systolic CHF -unlikely ACS -cont ASA and statin -no additional ischemic work up planned at this point
[2016-12-09] MEDS: HEPARIN NA (PORCINE) 5,000 UNITS/ML 1ML VIAL SQ SCH ×2 (09:34→22:46)
[2016-12-09] MEDS: LORazepam 1 MG TABLET PO SCH (09:34)
[2016-12-09] MEDS: ASPIRIN COATED 81 MG TABLET.EC PO SCH (09:34)
[2016-12-09] MEDS: MEMANTINE HCL 5 MG TABLET (UD) PO SCH ×2 (09:34→22:50)
[2016-12-09] MEDS: PANTOPRAZOLE 40 MG TABLET (FP) PO SCH (09:34)
[2016-12-09] MEDS: BUDESONIDE/FORMETEROL FUMARATE 160/4.5 mcg INHALER IH SCH ×2 (09:38→22:50)
[2016-12-09] MEDS: POLYETHYLENE GLYCOL 3350 119 GM BTL PO SCH (10:07)
--- NOTE | 2016-12-09 10:56 | PN ---
Progress Note (short form) - Note Progress Note: SUBJECTIVE: Patient seen and examined. Awake and confused. No distress. Calm at present. Periods of agitation. Pysch consult noted and appreciated. On 100% NRB. OBJECTIVE: Vital Signs - 8 hr 12/09/16 12/09/16 12/09/16 03:09 03:10 06:29 Temperature 97.2 F L 97.2 F L Pulse Rate 80 54 L 116 H Respiratory 20 20 Rate Blood Pressure 124/79 124/71 O2 Sat by Pulse 98 Oximetry (%) 12/09/16 12/09/16 07:32 07:35 Temperature 97.5 F L Pulse Rate 82 Respiratory 24 24 Rate Blood Pressure 123/67 O2 Sat by Pulse 98 98 Oximetry (%) Intake & Output 12/08/16 12/09/16 12/09/16 23:59 07:59 15:59 Intake Total 350 100 Balance 350 100 Intake: IV 0 0 saline lock 0 0 IVPB 100 100 Oral 250 Other: Voiding Method Incontinent Incontinent Active Medications Acetaminophen (Tylenol -) 650 mg PO Q6H PRN PRN Reason: FEVER OR PAIN Last Admin: 12/06/16 08:34 Dose: 650 mg Acetaminophen (Ofirmev Injection -) 1,000 mg IVPB Q6H PRN Last Admin: 11/29/16 11:05 Dose: 1,000 mg Albuterol/Ipratropium (Duoneb -) 1 amp NEB Q4H PRN PRN Reason: SHORTNESS OF BREATH Last Admin: 12/09/16 06:29 Dose: 1 amp Aspirin (Ecotrin -) 81 mg PO DAILY [facility] Last Admin: 12/09/16 09:34 Dose: 81 mg Atorvastatin Calcium (Lipitor -) 10 mg PO [facility] Last Admin: 12/08/16 21:38 Dose: 10 mg Budesonide/Formoterol Fumarate (Symbicort 160/4.5mcg -) 2 puff IH BID [facility] Last Admin: 12/09/16 09:38 Dose: 2 puff Divalproex Sodium (Depakote -) 250 mg PO TID [facility] Last Admin: 12/09/16 06:07 Dose: 250 mg Docusate Sodium (Colace -) 200 mg PO [facility] Last Admin: 12/08/16 21:37 Dose: 200 mg Heparin Sodium (Porcine) (Heparin -) 5,000 unit SQ BID [facility] Last Admin: 12/09/16 09:34 Dose: 5,000 unit Ampicillin Sodium 2 gm/ Sodium (Chloride) 100 mls @ 200 mls/hr IVPB Q6H-IV [facility] Last Admin: 12/09/16 08:07 Dose: 200 mls/hr Levothyroxine Sodium (Synthroid -) 125 mcg PO DAILY@0700 [facility] Last Admin: 12/09/16 06:07 Dose: 125 mcg Lorazepam (Ativan -) 1 mg PO BID [facility] Last Admin: 12/09/16 09:34 Dose: 1 mg Lorazepam (Ativan Injection -) 2 mg IM BID PRN PRN Reason: ANXIETY Last Admin: 12/09/16 02:59 Dose: 2 mg Memantine (Namenda -) 5 mg PO BID [facility] Last Admin: 12/09/16 09:34 Dose: 5 mg Pantoprazole Sodium (Protonix -) 40 mg PO DAILY [facility] Last Admin: 12/09/16 09:34 Dose: 40 mg Polyethylene Glycol (Miralax (For Daily Use) -) 17 gm PO DAILY [facility] Last Admin: 12/09/16 10:07 Dose: Not Given Senna (Senna -) 2 tab PO HS [facility] Last Admin: 12/08/16 21:38 Dose: 2 tab CBC, BMP 12/09/16 05:35 12/09/16 05:35 Laboratory Results - last 24 hr 12/08/16 12/09/16 12/09/16 11:08 05:35 05:35 WBC 8.9 RBC 3.08 L Hgb 10.3 L Hct 31.9 L MCV 103.6 H MCHC 32.3 RDW 15.3 Plt Count 317 MPV 7.8 Neutrophils % 75.1 Lymphocytes % 15.9 D Monocytes % 5.4 Eosinophils % 2.9 Basophils % 0.7 Sodium 152 H Potassium 3.6 Chloride 113 H Carbon Dioxide 34 H Anion Gap 5 L BUN 8 Creatinine 0.6 Creat Clearance w eGFR > 60 POC Glucometer 127 Random Glucose 103 Calcium 8.5 Total Bilirubin 0.3 D AST 11 L D ALT 25 Alkaline Phosphatase 69 Total Protein 6.0 L Albumin 2.7 L PHYSICAL EXAMINATION: Constitutional: Yes: No Distress Cardiovascular: Yes: Pulse Irregular Respiratory: Yes: Diminished, Rhonchi Gastrointestinal: Yes: Normal Bowel Sounds, Soft, Abdomen, Obese. No: Distention, Tenderness Edema: No Psychiatric: Yes: Alert, Agitated ASSESSMENT & PLAN: - Condition remains the same. - Continue antibiotics. - Pulmonary to follow. - Xanax for anxiety. - Patient is DNR/DNI. - Will follow. Problem List - Problems (1) Severe sepsis Code(s): A41.9 - SEPSIS, UNSPECIFIED ORGANISM R65.20 - SEVERE SEPSIS WITHOUT SEPTIC SHOCK (2) UTI (urinary tract infection) Code(s): N39.0 - URINARY TRACT INFECTION, SITE NOT SPECIFIED Qualifiers: Urinary tract infection type: site unspecified Hematuria presence: with hematuria Qualified Code(s): N39.0 - Urinary tract infection, site not specified (3) Cardiomyopathy Code(s): I42.9 - CARDIOMYOPATHY, UNSPECIFIED (4) HLD (hyperlipidemia) Code(s): E78.5 - HYPERLIPIDEMIA, UNSPECIFIED Qualifiers: Hyperlipidemia type: pure hypercholesterolemia Qualified Code(s): E78.0 - Pure hypercholesterolemia (5) HTN (hypertension) Code(s): I10 - ESSENTIAL (PRIMARY) HYPERTENSION Qualifiers: Hypertension type: essential hypertension Qualified Code(s): I10 - Essential (primary) hypertension (6) Hypothyroidism Code(s): E03.9 - HYPOTHYROIDISM, UNSPECIFIED Qualifiers: Hypothyroidism type: unspecified Qualified Code(s): E03.9 - Hypothyroidism, unspecified (7) Pneumonia Code(s): J18.9 - PNEUMONIA, UNSPECIFIED ORGANISM Qualifiers: Pneumonia type: due to unspecified organism Laterality: left Lung location: lower lobe of lung Qualified Code(s): J18.9 - Pneumonia, unspecified organism Documentation prepared by Tory Bradford, acting as a medical nurse for Josafat Sharma MD.
--- NOTE | 2016-12-09 13:16 | PN ---
Progress Note (short form) - Note Progress Note: PULMONARY RESTING COMFORTABLY ON BIPAP FAMILY PRESENT VSS/AFBRILE/PALE/BIPAP MASK IN PLACE DISTANT B/L BREATH SOUNDS S1S2 OBESE SOFT NO EDEMA LABS/MEDS/NOTES/IMAGING/MICRO/REVIEWED Proteus UTI/Bacteremia Septic Shock resolved Lactic Acidosis resolved Acute on Chronic LV Systolic Heart Failure Impending Acute Hypoxic Respiratory Failure COPD Paroxysmal Atrial Fibrillation h/o LV thrombus - nasal o2 alt with bipap - continue antibiotics - O2 to keep SpO2 >90% - inhaled bronchodilators - aspiration precautions - DVT/GI prophylaxis - considering Jamal LORA MD
[2016-12-09 14:09] LABS: ALLENS TEST POSITIVE; ART PUNCT SITE RIGHT RADIAL; ARTERIAL BLD GAS O2 SATURATION 98.7 % (90-98.9); ARTERIAL BLOOD GAS BASE EXCESS 4.9 meq/l (-2-2); ARTERIAL BLOOD GAS HCO3 30.5 meq/L (22-26); ARTERIAL BLOOD GAS pH 7.38 (7.35-7.45); LPM/O2% 100; PT. ON O2? YES; TYPE OF O2 BIPAP; VENT RATE 14; VT/PRESS EPAP 6
[2016-12-09] MEDS ORDERED: morphine CARPU-JECT 2 MG/1 ML DISP.SYRIN IVPUSH ONE (14:15)
--- NOTE | 2016-12-09 14:15 | PN ---
Progress Note (short form) - Note Progress Note: patientvis lot calmer but appears sedated. PLan: Reduce ativan dose.
[2016-12-09] MEDS ORDERED: ACETAMINOPHEN 325 MG TABLET (FP) PO PRN (21:14)
[2016-12-09] MEDS ORDERED: ACETAMINOPHEN 1000 MG/100 ML VIAL (NON FORMULARY) IVPB PRN (21:14)
[2016-12-09] MEDS ORDERED: ALBUTEROL SO4 2.5/IPRATROPIUM 0.5 INH SOL 3 ML VIAL.NEB. NEB PRN (21:14)
[2016-12-09] MEDS: DOCUSATE SODIUM 100 MG CAPSULE (FP) PO SCH (22:49)
[2016-12-09] MEDS: LORazepam 0.5 MG TABLET PO SCH (22:49)
[2016-12-09] MEDS: SENNOSIDES 8.6MG TABLET (FP) PO SCH (22:50)
[2016-12-09] MEDS: ATORVASTATIN CA 10 MG TABLET (FP) PO SCH (22:50)
[2016-12-10] MEDS: AMPICILLIN 2 GM/100 ML BAG (PRE-DOCKED) IVPB SCH ×4 (01:59→22:06)
[2016-12-10] MEDS ORDERED: AMPICILLIN - 2 GM in SODIUM CHLORIDE 100 ML IVPB SCH (03:00)
[2016-12-10] MEDS: LORAZEPAM CARPU-JECT 2 MG/ML DISP.SYRIN IM PRN ×2 (03:44→10:48)
[2016-12-10] MEDS ORDERED: morphine CARPU-JECT 2 MG/1 ML DISP.SYRIN ONE (03:57)
[2016-12-10] MEDS ORDERED: morphine CARPU-JECT 2 MG/1 ML DISP.SYRIN IVPUSH ONE (04:00)
[2016-12-10] MEDS: DIVALPROEX SODIUM 250 MG TABLET E.C. (FP) PO SCH ×3 (05:28→22:07)
[2016-12-10] MEDS: LEVOTHYROXINE NA 125 MCG TABLET (FP) PO SCH (06:02)
[2016-12-10] MEDS: LORazepam 0.5 MG TABLET PO SCH ×2 (10:49→22:07)
[2016-12-10] MEDS: POLYETHYLENE GLYCOL 3350 119 GM BTL PO SCH (10:50)
[2016-12-10] MEDS: ASPIRIN COATED 81 MG TABLET.EC PO SCH (10:50)
[2016-12-10] MEDS: MEMANTINE HCL 5 MG TABLET (UD) PO SCH ×2 (10:50→22:07)
[2016-12-10] MEDS: PANTOPRAZOLE 40 MG TABLET (FP) PO SCH (10:50)
[2016-12-10] MEDS: HEPARIN NA (PORCINE) 5,000 UNITS/ML 1ML VIAL SQ SCH ×2 (10:51→22:07)
[2016-12-10] MEDS: BUDESONIDE/FORMETEROL FUMARATE 160/4.5 mcg INHALER IH SCH ×2 (10:51→22:09)
--- NOTE | 2016-12-10 12:40 | PN ---
Progress Note (short form) - Note Progress Note: Condition same. all f/u noted low grade temp not eating well. Vital Signs Temp 99.1 F 12/10/16 09:32 Pulse 113 H 12/10/16 09:32 Resp 30 H 12/10/16 09:32 BP 126/73 12/10/16 09:32 Pulse Ox 98 12/10/16 10:00 Intake & Output 12/09/16 12/10/16 12/10/16 23:59 11:59 23:59 Intake Total 325 400 Balance 325 400 Intake: IV 25 saline lock 25 IVPB 200 200 Oral 100 200 Other: Voiding Method Incontinent Diaper # Unmeasured Voids Void 1 1 Bowel Movement Yes Active Medications Acetaminophen (Tylenol -) 650 mg PO Q6H PRN PRN Reason: FEVER OR PAIN Acetaminophen (Ofirmev Injection -) 1,000 mg IVPB Q6H PRN Albuterol/Ipratropium (Duoneb -) 1 amp NEB Q4H PRN PRN Reason: SHORTNESS OF BREATH Ampicillin Sodium (Ampicillin 2 Gm Ivpb (Pre-Docked)) 2 gm IVPB Q6H-IV [facility] Last Admin: 12/10/16 08:51 Dose: 2 gm Aspirin (Ecotrin -) 81 mg PO DAILY [facility] Last Admin: 12/10/16 10:50 Dose: Not Given Atorvastatin Calcium (Lipitor -) 10 mg PO HS [facility] Last Admin: 12/09/16 22:50 Dose: Not Given Budesonide/Formoterol Fumarate (Symbicort 160/4.5mcg -) 2 puff IH BID [facility] Last Admin: 12/10/16 10:51 Dose: Not Given Divalproex Sodium (Depakote -) 250 mg PO TID [facility] Last Admin: 12/10/16 05:28 Dose: Not Given Docusate Sodium (Colace -) 200 mg PO HS [facility] Last Admin: 12/09/16 22:49 Dose: Not Given Heparin Sodium (Porcine) (Heparin -) 5,000 unit SQ BID [facility] Last Admin: 12/10/16 10:51 Dose: 5,000 unit Levothyroxine Sodium (Synthroid -) 125 mcg PO DAILY@0700 [facility] Last Admin: 12/10/16 06:02 Dose: Not Given Lorazepam (Ativan Injection -) 2 mg IM BID PRN PRN Reason: ANXIETY Last Admin: 12/10/16 10:48 Dose: 2 mg Lorazepam (Ativan -) 0.5 mg PO BID [facility] Last Admin: 12/10/16 10:49 Dose: Not Given Memantine (Namenda -) 5 mg PO BID [facility] Last Admin: 12/10/16 10:50 Dose: Not Given Pantoprazole Sodium (Protonix -) 40 mg PO DAILY [facility] Last Admin: 12/10/16 10:50 Dose: Not Given Polyethylene Glycol (Miralax (For Daily Use) -) 17 gm PO DAILY [facility] Last Admin: 12/10/16 10:50 Dose: Not Given Senna (Senna -) 2 tab PO HS [facility] Last Admin: 12/09/16 22:50 Dose: Not Given CBC, BMP 12/09/16 05:35 12/09/16 05:35 PHYSICAL EXAMINATION: Constitutional: Yes: Lethargic Cardiovascular: Yes: Pulse Irregular Respiratory: Yes: Diminished, Rhonchi Gastrointestinal: Yes: Normal Bowel Sounds, Soft, Abdomen, Obese. No: Distention, Tenderness Edema: No ASSESSMENT & PLAN: - Condition remains the same. - Continue antibiotics. - Pulmonary to follow. - Xanax for anxiety. - Patient is DNR/DNI. - Will follow. -mild hydration. - morphine for comfort / respiratory distress.
[2016-12-10] MEDS ORDERED: ACETAMINOPHEN 650 MG SUPP.RECT PR PRN (16:52)
[2016-12-10] MEDS ORDERED: morphine CARPU-JECT 2 MG/1 ML DISP.SYRIN IVPUSH PRN (16:53)
[2016-12-10] MEDS: DEXTROSE 5%-0.45% SALINE 1,000 ML IV SCH (17:10)
[2016-12-10] MEDS: DOCUSATE SODIUM 100 MG CAPSULE (FP) PO SCH (22:07)
[2016-12-10] MEDS: ATORVASTATIN CA 10 MG TABLET (FP) PO SCH (22:07)
[2016-12-10] MEDS: SENNOSIDES 8.6MG TABLET (FP) PO SCH (22:09)
[2016-12-11] MEDS: AMPICILLIN 2 GM/100 ML BAG (PRE-DOCKED) IVPB SCH ×4 (02:50→22:02)
[2016-12-11] MEDS: DIVALPROEX SODIUM 250 MG TABLET E.C. (FP) PO SCH ×3 (05:50→22:03)
[2016-12-11] MEDS: LEVOTHYROXINE NA 125 MCG TABLET (FP) PO SCH (06:09)
[2016-12-11] MEDS: ASPIRIN COATED 81 MG TABLET.EC PO SCH (09:33)
[2016-12-11] MEDS: LORazepam 0.5 MG TABLET PO SCH ×2 (09:33→22:03)
[2016-12-11] MEDS: HEPARIN NA (PORCINE) 5,000 UNITS/ML 1ML VIAL SQ SCH ×2 (09:34→22:04)
[2016-12-11] MEDS: POLYETHYLENE GLYCOL 3350 119 GM BTL PO SCH (09:34)
[2016-12-11] MEDS: MEMANTINE HCL 5 MG TABLET (UD) PO SCH ×2 (09:34→22:03)
[2016-12-11] MEDS: DEXTROSE 5%-0.45% SALINE 1,000 ML IV SCH ×2 (09:35→17:02)
[2016-12-11] MEDS: BUDESONIDE/FORMETEROL FUMARATE 160/4.5 mcg INHALER IH SCH ×2 (09:35→22:04)
[2016-12-11] MEDS: PANTOPRAZOLE 40 MG TABLET (FP) PO SCH (09:35)
--- NOTE | 2016-12-11 11:40 | PN ---
Progress Note (short form) - Note Progress Note: Lethargic on bipap. Having fever. family at bed side Vital Signs Temp 101.4 F H 12/11/16 09:00 Pulse 110 H 12/11/16 09:00 Resp 22 12/11/16 09:00 BP 139/80 12/11/16 09:00 Pulse Ox 93 L 12/11/16 11:33 Intake & Output 12/10/16 12/10/16 12/11/16 11:59 23:59 11:59 Intake Total 273 925 4838 Balance 967 084 3708 Intake: IV 200 880 D5-1/2Ns - 1,000 ml @ 80 200 880 mls/hr IV ASDIR [facility] Rx#: [id number] IVPB 200 200 200 Oral 200 Other: Voiding Method Diaper Diaper # Unmeasured Voids Void 1 Bowel Movement Yes Active Medications Acetaminophen (Tylenol -) 650 mg PO Q6H PRN PRN Reason: FEVER OR PAIN Acetaminophen (Ofirmev Injection -) 1,000 mg IVPB Q6H PRN Albuterol/Ipratropium (Duoneb -) 1 amp NEB Q4H PRN PRN Reason: SHORTNESS OF BREATH Ampicillin Sodium (Ampicillin 2 Gm Ivpb (Pre-Docked)) 2 gm IVPB Q6H-IV [facility] Last Admin: 12/10/16 08:51 Dose: 2 gm Aspirin (Ecotrin -) 81 mg PO DAILY [facility] Last Admin: 12/10/16 10:50 Dose: Not Given Atorvastatin Calcium (Lipitor -) 10 mg PO [facility] Last Admin: 12/09/16 22:50 Dose: Not Given Budesonide/Formoterol Fumarate (Symbicort 160/4.5mcg -) 2 puff IH BID [facility] Last Admin: 12/10/16 10:51 Dose: Not Given Divalproex Sodium (Depakote -) 250 mg PO TID [facility] Last Admin: 12/10/16 05:28 Dose: Not Given Docusate Sodium (Colace -) 200 mg PO HS [facility] Last Admin: 12/09/16 22:49 Dose: Not Given Heparin Sodium (Porcine) (Heparin -) 5,000 unit SQ BID [facility] Last Admin: 12/10/16 10:51 Dose: 5,000 unit Levothyroxine Sodium (Synthroid -) 125 mcg PO DAILY@0700 [facility] Last Admin: 12/10/16 06:02 Dose: Not Given Lorazepam (Ativan Injection -) 2 mg IM BID PRN PRN Reason: ANXIETY Last Admin: 12/10/16 10:48 Dose: 2 mg Lorazepam (Ativan -) 0.5 mg PO BID [facility] Last Admin: 12/10/16 10:49 Dose: Not Given Memantine (Namenda -) 5 mg PO BID [facility] Last Admin: 12/10/16 10:50 Dose: Not Given Pantoprazole Sodium (Protonix -) 40 mg PO DAILY [facility] Last Admin: 12/10/16 10:50 Dose: Not Given Polyethylene Glycol (Miralax (For Daily Use) -) 17 gm PO DAILY [facility] Last Admin: 12/10/16 10:50 Dose: Not Given Senna (Senna -) 2 tab PO HS [facility] Last Admin: 12/09/16 22:50 Dose: Not Given PHYSICAL EXAMINATION: Constitutional: Yes: Lethargic Cardiovascular: Yes: Pulse Irregular Respiratory: Yes: Diminished, Rhonchi Gastrointestinal: Yes: Normal Bowel Sounds, Soft, Abdomen, Obese. No: Distention, Tenderness Edema: No ASSESSMENT & PLAN: - Condition remains the same. - Continue antibiotics. - mild hydration - Patient is DNR/DNI. -- morphine for comfort / respiratory distress.-- will decrease dose and observe - discussed in detail with family yesterday and today. - Family is requesting hospice at [facility]-- Dont want to send back to [facility]. - Will discuss with case operator. - Discussed with nursing staff. -will send to [facility] when bed available -
[2016-12-11] MEDS: morphine CARPU-JECT 2 MG/1 ML DISP.SYRIN IVPUSH PRN (22:02)
[2016-12-11] MEDS: ATORVASTATIN CA 10 MG TABLET (FP) PO SCH (22:03)
[2016-12-11] MEDS: DOCUSATE SODIUM 100 MG CAPSULE (FP) PO SCH (22:03)
[2016-12-11] MEDS: SENNOSIDES 8.6MG TABLET (FP) PO SCH (22:03)
[2016-12-12] MEDS: AMPICILLIN 2 GM/100 ML BAG (PRE-DOCKED) IVPB SCH ×2 (03:31→12:26)
[2016-12-12] MEDS: DIVALPROEX SODIUM 250 MG TABLET E.C. (FP) PO SCH ×2 (05:52→15:43)
[2016-12-12] MEDS: LEVOTHYROXINE NA 125 MCG TABLET (FP) PO SCH (06:11)
[2016-12-12] MEDS: morphine CARPU-JECT 2 MG/1 ML DISP.SYRIN IVPUSH PRN (08:29)
--- NOTE | 2016-12-12 09:45 | PN ---
Progress Note (short form) - Note Progress Note: SUBJECTIVE: Patient seen and examined. Dyspneic - On BiPAP. Having fever. OBJECTIVE: Vital Signs - 8 hr 12/12/16 12/12/16 12/12/16 02:58 06:00 07:10 Temperature 102.6 F H Pulse Rate 110 H Respiratory 20 Rate Blood Pressure 135/75 O2 Sat by Pulse 91 L 91 L Oximetry (%) Intake & Output 12/11/16 12/12/16 12/12/16 23:59 07:59 15:59 Intake Total 875 980 Balance 875 980 Weight 88.042 kg Intake: IV 575 880 D5-1/2Ns - 1,000 ml @ 80 575 880 mls/hr IV ASDIR [facility] Rx#: [id number] IVPB 300 100 Other: Voiding Method Diaper Weight Measurement Method Built in [facility] Active Medications Acetaminophen (Tylenol -) 650 mg PO Q6H PRN PRN Reason: FEVER OR PAIN Acetaminophen (Ofirmev Injection -) 1,000 mg IVPB Q6H PRN Last Admin: 12/12/16 09:09 Dose: 1,000 mg Acetaminophen (Tylenol Suppository -) 650 mg [place] Q6H PRN PRN Reason: FOR TEMP OVER 101 Last Admin: 12/10/16 15:45 Dose: 650 mg Albuterol/Ipratropium (Duoneb -) 1 amp NEB Q4H PRN PRN Reason: SHORTNESS OF BREATH Ampicillin Sodium (Ampicillin 2 Gm Ivpb (Pre-Docked)) 2 gm IVPB Q6H-IV [facility] Last Admin: 12/12/16 03:31 Dose: 2 gm Aspirin (Ecotrin -) 81 mg PO DAILY [facility] Last Admin: 12/11/16 09:33 Dose: Not Given Atorvastatin Calcium (Lipitor -) 10 mg PO [facility] Last Admin: 12/11/16 22:03 Dose: Not Given Budesonide/Formoterol Fumarate (Symbicort 160/4.5mcg -) 2 puff IH BID [facility] Last Admin: 12/11/16 22:04 Dose: Not Given Divalproex Sodium (Depakote -) 250 mg PO TID [facility] Last Admin: 12/12/16 05:52 Dose: Not Given Docusate Sodium (Colace -) 200 mg PO [facility] Last Admin: 12/11/16 22:03 Dose: Not Given Heparin Sodium (Porcine) (Heparin -) 5,000 unit SQ BID [facility] Last Admin: 12/11/16 22:04 Dose: 5,000 unit Dextrose/Sodium Chloride (D5-1/2ns -) 1,000 mls @ 80 mls/hr IV ASDIR [facility] Last Admin: 12/11/16 17:02 Dose: Not Given Levothyroxine Sodium (Synthroid -) 125 mcg PO DAILY@0700 [facility] Last Admin: 12/12/16 06:11 Dose: Not Given Lorazepam (Ativan -) 0.5 mg PO BID [facility] Last Admin: 12/11/16 22:03 Dose: Not Given Memantine (Namenda -) 5 mg PO BID [facility] Last Admin: 12/11/16 22:03 Dose: Not Given Morphine Sulfate (Morphine Injection -) 1 mg IVPUSH Q6H PRN PRN Reason: PAIN Last Admin: 12/12/16 08:29 Dose: 1 mg Pantoprazole Sodium (Protonix -) 40 mg PO DAILY [facility] Last Admin: 12/11/16 09:35 Dose: Not Given Polyethylene Glycol (Miralax (For Daily Use) -) 17 gm PO DAILY [facility] Last Admin: 12/11/16 09:34 Dose: Not Given Senna (Senna -) 2 tab PO HS [facility] Last Admin: 12/11/16 22:03 Dose: Not Given CBC, BMP 12/09/16 05:35 12/09/16 05:35 PHYSICAL EXAMINATION: Constitutional: Yes: Lethargic/ Moderate Distress. Cardiovascular: Yes: Pulse Irregular Respiratory: Yes: Diminished, Rhonchi Gastrointestinal: Yes: Normal Bowel Sounds, Soft, Abdomen, Obese. No: Distention, Tenderness Edema: No ASSESSMENT & PLAN: - Condition remains the same. - Continue antibiotics. - Mild hydration. - Patient is DNR/DNI. - Morphine for comfort / respiratory distress. - Discussed in detail with family yesterday and today. - Discussed with nursing staff. - Will send to [place] when bed available.- Being planned. - Discussed with Pulmonary also. Problem List - Problems (1) Severe sepsis Code(s): A41.9 - SEPSIS, UNSPECIFIED ORGANISM R65.20 - SEVERE SEPSIS WITHOUT SEPTIC SHOCK (2) UTI (urinary tract infection) Code(s): N39.0 - URINARY TRACT INFECTION, SITE NOT SPECIFIED Qualifiers: Urinary tract infection type: site unspecified Hematuria presence: with hematuria Qualified Code(s): N39.0 - Urinary tract infection, site not specified (3) Cardiomyopathy Code(s): I42.9 - CARDIOMYOPATHY, UNSPECIFIED (4) HLD (hyperlipidemia) Code(s): E78.5 - HYPERLIPIDEMIA, UNSPECIFIED Qualifiers: Hyperlipidemia type: pure hypercholesterolemia Qualified Code(s): E78.0 - Pure hypercholesterolemia (5) HTN (hypertension) Code(s): I10 - ESSENTIAL (PRIMARY) HYPERTENSION Qualifiers: Hypertension type: essential hypertension Qualified Code(s): I10 - Essential (primary) hypertension (6) Hypothyroidism Code(s): E03.9 - HYPOTHYROIDISM, UNSPECIFIED Qualifiers: Hypothyroidism type: unspecified Qualified Code(s): E03.9 - Hypothyroidism, unspecified (7) Pneumonia Code(s): J18.9 - PNEUMONIA, UNSPECIFIED ORGANISM Qualifiers: Pneumonia type: due to unspecified organism Laterality: left Lung location: lower lobe of lung Qualified Code(s): J18.9 - Pneumonia, unspecified organism Documentation prepared by Tory Bradford, acting as a medical terminologist for Josafat Sharma MD.
[2016-12-12] MEDS ORDERED: morphine CARPU-JECT 2 MG/1 ML DISP.SYRIN IVPUSH PRN (09:54)
[2016-12-12] MEDS: LORazepam 0.5 MG TABLET PO SCH (10:04)
[2016-12-12] MEDS: ASPIRIN COATED 81 MG TABLET.EC PO SCH (10:04)
[2016-12-12] MEDS: POLYETHYLENE GLYCOL 3350 119 GM BTL PO SCH (10:04)
[2016-12-12] MEDS: MEMANTINE HCL 5 MG TABLET (UD) PO SCH (10:09)
[2016-12-12] MEDS: PANTOPRAZOLE 40 MG TABLET (FP) PO SCH (10:09)
[2016-12-12] MEDS: BUDESONIDE/FORMETEROL FUMARATE 160/4.5 mcg INHALER IH SCH (10:09)
--- NOTE | 2016-12-12 10:10 | PN ---
Progress Note (short form) - Note Progress Note: No clinical improvement. Remains febrile. On NIPPV support. Plans being made for possible [employer]. Intake & Output 12/09/16 12/10/16 12/11/16 12/12/16 23:59 23:59 23:59 23:59 Intake Total 893 430 5919 980 Balance 092 588 5850 980 Weight 194 lb 1.6 oz Last Vital Signs Temp Pulse Resp BP Pulse Ox 102.6 F H 110 H 20 135/75 91 L 12/12/16 06:00 12/12/16 06:00 12/12/16 06:00 12/12/16 06:00 12/12/16 07:10 Active Medications Acetaminophen (Tylenol -) 650 mg PO Q6H PRN PRN Reason: FEVER OR PAIN Acetaminophen (Ofirmev Injection -) 1,000 mg IVPB Q6H PRN Last Admin: 12/12/16 09:09 Dose: 1,000 mg Acetaminophen (Tylenol Suppository -) 650 mg [place] Q6H PRN PRN Reason: FOR TEMP OVER 101 Last Admin: 12/10/16 15:45 Dose: 650 mg Albuterol/Ipratropium (Duoneb -) 1 amp NEB Q4H PRN PRN Reason: SHORTNESS OF BREATH Ampicillin Sodium (Ampicillin 2 Gm Ivpb (Pre-Docked)) 2 gm IVPB Q6H-IV [facility] Last Admin: 12/12/16 03:31 Dose: 2 gm Aspirin (Ecotrin -) 81 mg PO DAILY [facility] Last Admin: 12/11/16 09:33 Dose: Not Given Atorvastatin Calcium (Lipitor -) 10 mg PO [facility] Last Admin: 12/11/16 22:03 Dose: Not Given Budesonide/Formoterol Fumarate (Symbicort 160/4.5mcg -) 2 puff IH BID [facility] Last Admin: 12/11/16 22:04 Dose: Not Given Divalproex Sodium (Depakote -) 250 mg PO TID [facility] Last Admin: 12/12/16 05:52 Dose: Not Given Docusate Sodium (Colace -) 200 mg PO HS [facility] Last Admin: 12/11/16 22:03 Dose: Not Given Heparin Sodium (Porcine) (Heparin -) 5,000 unit SQ BID [facility] Last Admin: 12/11/16 22:04 Dose: 5,000 unit Dextrose/Sodium Chloride (D5-1/2ns -) 1,000 mls @ 80 mls/hr IV ASDIR [facility] Last Admin: 12/11/16 17:02 Dose: Not Given Levothyroxine Sodium (Synthroid -) 125 mcg PO DAILY@0700 [facility] Last Admin: 12/12/16 06:11 Dose: Not Given Lorazepam (Ativan -) 0.5 mg PO BID [facility] Last Admin: 12/11/16 22:03 Dose: Not Given Memantine (Namenda -) 5 mg PO BID [facility] Last Admin: 12/11/16 22:03 Dose: Not Given Morphine Sulfate (Morphine Injection -) 2 mg IVPUSH Q6H PRN PRN Reason: PAIN Pantoprazole Sodium (Protonix -) 40 mg PO DAILY [facility] Last Admin: 12/11/16 09:35 Dose: Not Given Polyethylene Glycol (Miralax (For Daily Use) -) 17 gm PO DAILY [facility] Last Admin: 12/11/16 09:34 Dose: Not Given Senna (Senna -) 2 tab PO HS [facility] Last Admin: 12/11/16 22:03 Dose: Not Given Constitutional: Yes: Lethargic/ Moderate Distress. Cardiovascular: Yes: Tachycardia, Pulse Irregular Respiratory: Yes: Diminished at the bases, Bilateral scattered Rhonchi Gastrointestinal: Yes: Normal Bowel Sounds, Soft, Abdomen, Obese. No: Distention, Tenderness Edema: No Problem List - Problems (1) Severe sepsis Code(s): A41.9 - SEPSIS, UNSPECIFIED ORGANISM R65.20 - SEVERE SEPSIS WITHOUT SEPTIC SHOCK (2) UTI (urinary tract infection) Code(s): N39.0 - URINARY TRACT INFECTION, SITE NOT SPECIFIED Qualifiers: Urinary tract infection type: site unspecified Hematuria presence: with hematuria Qualified Code(s): N39.0 - Urinary tract infection, site not specified (3) Cardiomyopathy Code(s): I42.9 - CARDIOMYOPATHY, UNSPECIFIED (4) HLD (hyperlipidemia) Code(s): E78.5 - HYPERLIPIDEMIA, UNSPECIFIED Qualifiers: Hyperlipidemia type: pure hypercholesterolemia Qualified Code(s): E78.0 - Pure hypercholesterolemia (5) HTN (hypertension) Code(s): I10 - ESSENTIAL (PRIMARY) HYPERTENSION Qualifiers: Hypertension type: essential hypertension Qualified Code(s): I10 - Essential (primary) hypertension (6) Hypothyroidism Code(s): E03.9 - HYPOTHYROIDISM, UNSPECIFIED Qualifiers: Hypothyroidism type: unspecified Qualified Code(s): E03.9 - Hypothyroidism, unspecified (7) Pneumonia Code(s): J18.9 - PNEUMONIA, UNSPECIFIED ORGANISM Qualifiers: Pneumonia type: due to unspecified organism Laterality: left Lung location: lower lobe of lung Qualified Code(s): J18.9 - Pneumonia, unspecified organism ASSESSMENT & PLAN: - ABX per ID - IVF - Patient is DNR/DNI. - Morphine for comfort / respiratory distress. - For possible transfer to [place] when bed available Dr Arellano
--- NOTE | 2016-12-12 10:39 | PN ---
Progress Note, Physician Chief Complaint: ID Lengthy discussion with both daughters regarding end of life wishes and in particular the current fever Temp 102.6 Breathing is labored - Current Medication List Current Medications: Active Medications Acetaminophen (Tylenol -) 650 mg PO Q6H PRN PRN Reason: FEVER OR PAIN Acetaminophen (Ofirmev Injection -) 1,000 mg IVPB Q6H PRN Last Admin: 12/12/16 09:09 Dose: 1,000 mg Acetaminophen (Tylenol Suppository -) 650 mg [place] Q6H PRN PRN Reason: FOR TEMP OVER 101 Last Admin: 12/10/16 15:45 Dose: 650 mg Albuterol/Ipratropium (Duoneb -) 1 amp NEB Q4H PRN PRN Reason: SHORTNESS OF BREATH Ampicillin Sodium (Ampicillin 2 Gm Ivpb (Pre-Docked)) 2 gm IVPB Q6H-IV [facility] Last Admin: 12/12/16 03:31 Dose: 2 gm Aspirin (Ecotrin -) 81 mg PO DAILY [facility] Last Admin: 12/12/16 10:04 Dose: Not Given Atorvastatin Calcium (Lipitor -) 10 mg PO [facility] Last Admin: 12/11/16 22:03 Dose: Not Given Budesonide/Formoterol Fumarate (Symbicort 160/4.5mcg -) 2 puff IH BID [facility] Last Admin: 12/12/16 10:09 Dose: Not Given Divalproex Sodium (Depakote -) 250 mg PO TID [facility] Last Admin: 12/12/16 05:52 Dose: Not Given Docusate Sodium (Colace -) 200 mg PO [facility] Last Admin: 12/11/16 22:03 Dose: Not Given Heparin Sodium (Porcine) (Heparin -) 5,000 unit SQ BID [facility] Last Admin: 12/11/16 22:04 Dose: 5,000 unit Dextrose/Sodium Chloride (D5-1/2ns -) 1,000 mls @ 80 mls/hr IV ASDIR [facility] Last Admin: 12/11/16 17:02 Dose: Not Given Levothyroxine Sodium (Synthroid -) 125 mcg PO DAILY@0700 [facility] Last Admin: 12/12/16 06:11 Dose: Not Given Lorazepam (Ativan -) 0.5 mg PO BID [facility] Last Admin: 12/12/16 10:04 Dose: Not Given Memantine (Namenda -) 5 mg PO BID [facility] Last Admin: 12/12/16 10:09 Dose: Not Given Morphine Sulfate (Morphine Injection -) 2 mg IVPUSH Q6H PRN PRN Reason: PAIN Pantoprazole Sodium (Protonix -) 40 mg PO DAILY [facility] Last Admin: 12/12/16 10:09 Dose: Not Given Polyethylene Glycol (Miralax (For Daily Use) -) 17 gm PO DAILY [facility] Last Admin: 12/12/16 10:04 Dose: Not Given Senna (Senna -) 2 tab PO HS [facility] Last Admin: 12/11/16 22:03 Dose: Not Given - Objective Vital Signs: Vital Signs Temperature 102.6 F H 12/12/16 06:00 Pulse Rate 110 H 12/12/16 06:00 Respiratory Rate 20 12/12/16 06:00 Blood Pressure 135/75 12/12/16 06:00 O2 Sat by Pulse Oximetry (%) 91 L 12/12/16 07:10 Labs: CBC, BMP 12/09/16 05:35 12/09/16 05:35 INR, PTT INR 1.15 (0.82-1.09) H 11/27/16 18:30 Assessment/Plan After further discussion with family they wish only comfort measures at this time with Tylenol Will stop antibiotics No further cultures at this time Hospice care Tia WEEMS
[2016-12-12] MEDS ORDERED: morphine CARPU-JECT 2 MG/1 ML DISP.SYRIN IVPUSH ONE (12:15)
[2016-12-12] MEDS: HEPARIN NA (PORCINE) 5,000 UNITS/ML 1ML VIAL SQ SCH (12:25)
[2016-12-12] MEDS ORDERED: LORAZEPAM CARPU-JECT 2 MG/ML DISP.SYRIN IVPUSH PRN (15:32)
[2016-12-12 15:44] VITALS: BP 120/72; PULSE 88; TEMP 98
[2016-12-12] MEDS ORDERED: ONDANSETRON 4 MG/2 ML VIAL IVPUSH PRN (16:42)
[2016-12-12] MEDS ORDERED: MORPHINE 100 MG in SODIUM CHLORIDE 98 ML IVPB SCH (16:45)
[2016-12-12] MEDS ORDERED: morphine SULFATE/PF 30 MG/30 ML *PCA* DISP.SYRIN PCA SCH (17:00)
--- NOTE | 2016-12-12 17:27 | HOSP ---
Subjective - Review of Symptoms Events since last encounter: Called for patient unresponsiveness. Physical Examination Vital Signs: Vital Signs Temperature 98.0 F 12/12/16 15:39 Pulse Rate 88 12/12/16 15:39 Respiratory Rate 16 12/12/16 15:39 Blood Pressure 120/72 12/12/16 15:39 O2 Sat by Pulse Oximetry (%) 91 L 12/12/16 07:10 Labs: CBC, BMP 12/09/16 05:35 12/09/16 05:35 Hospitalist Encounter Assessment: On exam the patient did not respond to verbal or physical stimuli. No spontaneous movements. Absent heart and breath sounds throughout pericardium, no spontaneous breaths. Absent carotid and peripheral pulses. Pupils are mid- dilated and fixed, corneal reflex absent. Patient pronounced at 5:15pm. Family at bedside, notified. nursing to notify PCP, Dr. Gonzalez. Outcome: patient is . Primary Physician Notified: Francesca Gonzalez Visit type - Emergency Visit Emergency Visit: No - New Patient This patient is new to me today: Yes Date on this admission: 12/12/16 - Critical Care Critical Care patient: No
[2016-12-12] MEDS: DEXTROSE 5%-0.45% SALINE 1,000 ML IV SCH (18:37)
--- NOTE | 2016-12-13 10:08 | DS ---
Physical Examination Vital Signs: Vital Signs Temperature 98.0 F 12/12/16 15:39 Pulse Rate 88 12/12/16 15:39 Respiratory Rate 16 12/12/16 15:39 Blood Pressure 120/72 12/12/16 15:39 O2 Sat by Pulse Oximetry (%) 91 L 12/12/16 07:10 Labs: CBC, BMP 12/09/16 05:35 12/09/16 05:35 Discharge Summary Reason For Visit: UTI, SEVERE SEPSIS Hospital Course: Admitted for UTI, sepsis, respiratory failure Seen by PULMONARY , ID on antibiotics pt was not improving- was dependent on BIPAP decision made with family for pt to be placed om hospice Pt 12/02/16 - Instructions Referrals: Katherine Yates MD [Primary Care Provider] - Disposition: - Home Medications Comprehensive Discharge Medication List: Ambulatory Orders Aspirin Coated [Ecotrin -] 81 mg PO DAILY 02/04/12 Divalproex [Depakote -] 250 mg PO TID 02/04/12 Levothyroxine [Synthroid -] 125 mcg PO DAILY 02/04/12 Calcium Carbonate/Vitamin D3 [Calcium 600-Vit D3 200 Tablet] 1 each PO BID 02/02 Docusate Sodium [Colace -] 200 mg PO HS 02/02/15 Quetiapine Fumarate [Seroquel -] 125 mg PO TID 02/02/15 Sennosides [Senna] 2 tab PO HS 02/02/15 Simvastatin [Zocor -] 20 mg PO HS 02/02/15 Budesonide/Formeterol Fumarate [SYMBICORT 160/4.5mcg -] 2 inh PO BID 08/06/15 Pantoprazole Sodium [Protonix] 40 mg PO BID #0 tablet.dr 08/06/15 Polyethylene Glycol 3350 [Purelax] 17 gm PO DAILY 08/06/15 Risperidone [Risperdal] 1 mg PO TID 08/06/15 Ranitidine HCl 150 mg PO HS 05/06/16 Dextromethorphan HBr/Quinidine [Nuedexta 20-10 mg Capsule] 1 each PO BID Nebivolol [Bystolic -] 2.5 mg PO DAILY #60 tab 08/14/16 Ramipril [Altace] 2.5 mg PO DAILY #30 capsule 08/14/16 Aclidinium [place] [Tudorza -] 1 puff IH BID inhaler 08/15/16 Duoneb - 1 unit NEB TID PRN #0 08/15/16 Acetaminophen [Tylenol .Regular Strength -] 650 mg PO Q6H PRN 11/27/16 Furosemide [Lasix -] 40 mg PO BID@0600,1400 11/27/16
== END 2016-12-12 17:15 | disposition expired | DRG 871 ==
LOC: JER 18:03 → JERBED 20:22 → J4W 11-28 00:06 → JICU 11-29 16:55 → J8W 12-02 20:41 → J4W 12-04 18:48 → J8W 12-09 20:46
PROVIDERS: ADMIT Internal Medicine; ATTEND Internal Medicine
PROC: 5A09357 Assistance with Respiratory Ventilation, Less than 24 Consecutive Hours, Continuous Positive Airway Pressure (ICD-10-PCS; principal; 2016-11-27)
PROC: 3E0F7GC Introduction of Other Therapeutic Substance into Respiratory Tract, Via Natural or Artificial Opening (ICD-10-PCS; 2016-11-27)
DX: A41.9 Sepsis, unspecified organism (principal); R65.21 Severe sepsis with septic shock; J96.01 Acute respiratory failure with hypoxia; G93.41 Metabolic encephalopathy; I50.23 Acute on chronic systolic (congestive) heart failure; J18.9 Pneumonia, unspecified organism; N39.0 Urinary tract infection, site not specified; C15.9 Malignant neoplasm of esophagus, unspecified; I69.354 Hemiplegia and hemiparesis following cerebral infarction affecting left non-dominant side; I42.9 Cardiomyopathy, unspecified; E87.2 Acidosis; I47.1 Supraventricular tachycardia; E03.9 Hypothyroidism, unspecified; K21.9 Gastro-esophageal reflux disease without esophagitis; F31.9 Bipolar disorder, unspecified; Z66 Do not resuscitate; Z87.891 Personal history of nicotine dependence; E78.00 Pure hypercholesterolemia, unspecified; D64.9 Anemia, unspecified; I11.0 Hypertensive heart disease with heart failure; I48.0 Paroxysmal atrial fibrillation; R79.89 Other specified abnormal findings of blood chemistry; J44.9 Chronic obstructive pulmonary disease, unspecified; R45.1 Restlessness and agitation; F41.9 Anxiety disorder, unspecified
CPT/HCPCS: 36415; 36600; 71010-TC; 76775-TC; 80048; 80053; 80164; 81003; 81015; 82140; 82550; 82553; 82803; 83605; 83735; 84439; 84443; 84484; 85025; 85610; 85730; 86850; 86870; 86900; 86901; 86902; 87040; 87070; 87086; 87186; 87205; 87254; 87804; 93005; 93010; 94640; 94660; 99285-25; J1644